=== PATIENT | male | born 1970 | race Caucasian/White ===

== ENCOUNTER → 2019-08-05 11:58 | Outpatient (BNVA) | payer MEDICAID, SELFPAY | PROVIDERS: Visit Provider Nurse Practitioner Family | DX: E78.2 Mixed hyperlipidemia (principal); Z79.899 Other long term (current) drug therapy; R53.83 Other fatigue; M54.9 Dorsalgia, unspecified; R19.7 Diarrhea, unspecified; E55.9 Vitamin D deficiency, unspecified; W19.XXXA Unspecified fall, initial encounter; Z12.5 Encounter for screening for malignant neoplasm of prostate; M51.36 Other intervertebral disc degeneration, lumbar region; M50.30 Other cervical disc degeneration, unspecified cervical region; S39.012A Strain of muscle, fascia and tendon of lower back, initial encounter; M54.40 Lumbago with sciatica, unspecified side; R15.9 Full incontinence of feces | CPT/HCPCS: 80053; 80061; 81001; 82652; 83036; 83721; 84153; 84443; 85025 ==

== ENCOUNTER 2019-08-06 11:40 | Outpatient (CLI) | payer MEDICAID, SELFPAY ==
--- NOTE | 2019-08-06 11:57 | XR_ITS ---
WS: [id number] THORACIC SPINE TECHNIQUE: AP and lateral views are performed. HISTORY: back pain COMPARISON: None available. Mild RIGHT convex curvature of the upper thoracic spine. Pedicles are all identified. Mild straighten ing of the normal thoracic kyphosis. Endplate osteophytes and mild disc space narrowing in the mid to lower thoracic spine. XR/XR thoracic spine 3V* [id number] IMPRESSION: Mild thoracolumbar scoliosis and spondylosis.
--- NOTE | 2019-08-06 11:57 | XR_ITS ---
WS: [id number] CERVICAL SPINE 3 VIEWS HISTORY: neck pain COMPARISON: None available. Mild straightening and LEFT convex curvature cervical spine. Posterior alignment is normal. Hypertrop hic endplate changes and disc space narrowing at C5-6 and C6-7. C7-T1 are not visualized. Lateral masses of C1 and C2 are aligned. Odontoid is intact. Soft tissues are normal. XR/XR cervical spine 3V* [id number] IMPRESSION: Mild spondylosis at C5-6 and C6-7.
--- NOTE | 2019-08-06 11:57 | XR_ITS ---
WS: [id number] LUMBAR SPINE: 7 VIEWS TECHNIQUE: AP, oblique, lateral, L5-S1 spot. Upright lateral projections in neutral, flexion and exte nsion. HISTORY: low back pain COMPARISON: None available. Normal lumbar alignment with mild straightening. With flexion and extension there is no instability. Moderate disc space narrowing and desiccation at L4-5 and mild at L5-S1. No fracture. Pedicles are al l identified. No pars defects are identified. Facet joint arthritis is most significant at L5-S1. SI joints are symmetric bilaterally. No soft tissue abnormalities. XR/XR lumbar spine 6V w f/e [id number] IMPRESSION: 1. No lumbar spine instability or fracture. 2. Degenerative disc disease is moderate at L4-5 and mild at L5-S1.
== END 2019-08-06 11:41 | disposition home or self-care (01) ==
LOC: RADWPI 11:44
PROVIDERS: PCP Nurse Practitioner Family; Visit Provider Nurse Practitioner Family
DX: M54.2 Cervicalgia (principal); M54.5 Low back pain; M41.85 Other forms of scoliosis, thoracolumbar region; M47.814 Spondylosis without myelopathy or radiculopathy, thoracic region; M51.36 Other intervertebral disc degeneration, lumbar region; M47.812 Spondylosis without myelopathy or radiculopathy, cervical region
CPT/HCPCS: 72040; 72072; 72114

== ENCOUNTER → 2019-09-10 13:26 | Outpatient (BNVA) | payer MEDICAID, SELFPAY | PROVIDERS: PCP Nurse Practitioner Family; Visit Provider Nurse Practitioner Family | DX: M50.30 Other cervical disc degeneration, unspecified cervical region (principal); M51.36 Other intervertebral disc degeneration, lumbar region; M54.2 Cervicalgia; E78.2 Mixed hyperlipidemia; E03.9 Hypothyroidism, unspecified; D72.829 Elevated white blood cell count, unspecified; Z79.899 Other long term (current) drug therapy | CPT/HCPCS: 80053; 84443; 85025 ==

== ENCOUNTER 2019-09-16 09:04 | Outpatient (CLI) | payer MEDICAID, SELFPAY ==
--- NOTE | 2019-09-16 09:09 | XR_ITS ---
WS: [id number] LATERAL CERVICAL SPINE: 3 view. Lateral radiographs are performed in upright neutral, flexion and extension to the patient's toleranc e. HISTORY: Neck pain COMPARISON: 08/06/2019 Mild straightening of the normal cervical lordosis. Mild disc space narrowing at C5-6 and C6-7. With flexion and extension there is no instability. Similar appearance as compared to 08/06/2019. XR/XR cervical spine fl/ex [id number] IMPRESSION: Mild spondylitic changes at C5-6 and C6-7. No instability.
== END 2019-09-16 09:05 | disposition home or self-care (01) ==
LOC: RADWPI 09:07
PROVIDERS: PCP Nurse Practitioner Family; Referring Provider Nurse Practitioner Family; Visit Provider Licensed Practical Nurse
DX: M54.2 Cervicalgia (principal)
CPT/HCPCS: 72040

== ENCOUNTER → 2019-09-18 08:28 | Outpatient (BNVA) | payer MEDICAID, SELFPAY | PROVIDERS: PCP Nurse Practitioner Family; Referring Provider Licensed Practical Nurse; Visit Provider Anesthesiology Pain Medicine | DX: M51.36 Other intervertebral disc degeneration, lumbar region (principal); M51.17 Intervertebral disc disorders with radiculopathy, lumbosacral region; M50.020 Cervical disc disorder with myelopathy, mid-cervical region, unspecified level; M48.02 Spinal stenosis, cervical region; Z79.891 Long term (current) use of opiate analgesic | CPT/HCPCS: 99204; 99205 ==

== ENCOUNTER → 2019-10-03 13:02 | Outpatient (BNVA) | payer MEDICAID, SELFPAY | PROVIDERS: PCP Nurse Practitioner Family; Visit Provider Anesthesiology Pain Medicine | DX: M50.020 Cervical disc disorder with myelopathy, mid-cervical region, unspecified level (principal); Z79.891 Long term (current) use of opiate analgesic | CPT/HCPCS: 62321; J1100; J2001 ==

== ENCOUNTER → 2019-10-15 12:21 | Outpatient (BNVA) | payer MEDICAID, SELFPAY | PROVIDERS: PCP Nurse Practitioner Family; Visit Provider Anesthesiology Pain Medicine | DX: M50.020 Cervical disc disorder with myelopathy, mid-cervical region, unspecified level (principal); Z79.891 Long term (current) use of opiate analgesic | CPT/HCPCS: 62321; J1040 ==

== ENCOUNTER 2019-11-26 08:18 | Outpatient (CLI) | payer MEDICAID, SELFPAY ==
--- NOTE | 2019-11-26 09:07 | IR_ITS ---
WS: [id number] Lumbar myelogram, 11/26/2019 Clinical Data: cervical pain and lumbar pain Comparison: None. Fluoroscopy time: 2.1 minutes. Findings: Lumbar myelogram: With the usual technique, a 22 gauge spinal needle was inserted into the lumbar subarachnoid space at L2-L3. The contrast material was hand injected. Approximately 15 mL of 300 mg/mL Omnipaque filled the lumbar subarachnoid space. Minimal degenerative arthritic spurring at L4-L5 along with disc space narrowing is seen. Flexion, extension and neutral lateral views demonstrated no limitation of motion or subluxation. No intramedullary, intradural or extradural filling defects could be seen. Cervical myelogram: The patient was placed into the head down position and the contrast material flowed normally into the cervical subarachnoid space. Flexion, extension and neutral lateral views of the cervical spine show no limitation of motion or subluxation. No intramedullary or intradural or extradural defects could be seen. IR/IR myelogram spine cervic/lumb Impression: 1. Negative lumbar myelogram. 2. Negative cervical myelogram. 3. No limitation of motion on flexion or extension could be seen with the cervi marlys spine or lumbar spine.
--- NOTE | 2019-11-26 09:07 | CT_ITS ---
WS: [id number] CT cervical spine. Additional two-dimensional coronal and sagittal reconstruction was performed post myelogram. 11/26/2019 Clinical Data: cervical pain Comparison: None. DLP: 2330.[address] scans at [facility] use at least one of these dose optimization techniques: automat ed exposure control; mA and/or kV adjustment per patient size (includes targeted exams where dose is matched to clinical indication); or iterative reconstruction. Findings: No compression fractures are seen. The disc heights are normal. Minimal anterior and posterior osteop hyte formation at C6 is present. The spinous processes are in good alignment. The odontoid is unremar kable. There is no prevertebral soft tissue swelling. The soft tissues of the cervical spine and the lung apices are not remarkable. C2-C3: No disc bulge, canal stenosis or foraminal stenosis is seen. C3-C4: No disc bulge, canal stenosis or foraminal stenosis is seen. C4-C5: No disc bulge, canal stenosis or foraminal stenosis is seen. C5-C6: There is posterior disc and osteophyte impingement onto the central spinal canal. C6-C7: There is disc and osteophyte impingement on to the central spinal canal. C7-T1: No disc bulge, canal stenosis or foraminal stenosis is seen. CT/CT cervical spine w con [id number] Impression: Disc and osteophyte posterior impingement on the central spinal canal stenosis C5-C6 and C6-C7.
--- NOTE | 2019-11-26 09:07 | CT_ITS ---
WS: [id number] CT of the lumbar spine, additional two-dimensional coronal and sagittal imaging was obtained post mye logram. 11/26/2019 Clinical Data: lumbar pain Comparison: None. DLP: 1606.[address] scans at [facility] use at least one of these dose optimization techniques: automat ed exposure control; mA and/or kV adjustment per patient size (includes targeted exams where dose is matched to clinical indication); or iterative reconstruction. Findings: The myelographic contrast fills the lumbar subarachnoid space. The transverse processes and SI joints are unremarkable. There is mild disc space narrowing at L4-L5 with anterior osteoarthritic change. T12-L1: No canal stenosis, disc bulge or foraminal narrowing is seen. L1-L2: No canal stenosis, disc bulge or foraminal narrowing is seen. L2-L3: No canal stenosis, disc bulge or foraminal narrowing is seen. L3-L4: No canal stenosis, disc bulge or foraminal narrowing is seen. L4-L5: There is broad-based disc bulging causing canal stenosis. There is also moderate foraminal ning nosis. L5-S1: There is a large disc bulge with greater bulging on the right than the left causing canal and foraminal stenosis. CT/CT lumbar spine w con [id number] Impression: 1. Canal and foraminal stenosis at L4-L5 from a broad-based disc bulge. 2. Large disc bulge at L5-S1 with greater narrowing on the right than left rosalino g with bilateral foraminal stenosis.
[2019-11-26] MEDS: iohexol 240 mg/mL 50 mL Btl INTRA-ARTI (14:19)
== END 2019-11-26 08:19 | disposition home or self-care (01) ==
PROVIDERS: PCP Nurse Practitioner Family; Visit Provider Specialist
DX: M48.061 Spinal stenosis, lumbar region without neurogenic claudication (principal); M51.26 Other intervertebral disc displacement, lumbar region; M51.27 Other intervertebral disc displacement, lumbosacral region; M25.78 Osteophyte, vertebrae; M48.02 Spinal stenosis, cervical region
CPT/HCPCS: 62302; 62304; 62305; 72040; 72120; 72126; 72132

== ENCOUNTER → 2019-12-03 14:34 | Outpatient (BNVA) | payer MEDICAID, SELFPAY | PROVIDERS: PCP Nurse Practitioner Family; Visit Provider Licensed Practical Nurse | DX: M51.16 Intervertebral disc disorders with radiculopathy, lumbar region (principal); M50.020 Cervical disc disorder with myelopathy, mid-cervical region, unspecified level | CPT/HCPCS: 99213 ==

== ENCOUNTER → 2019-12-18 11:23 | Outpatient (BNVA) | payer MEDICAID, SELFPAY | PROVIDERS: PCP Nurse Practitioner Family; Referring Provider Licensed Practical Nurse; Visit Provider Specialist | DX: M51.16 Intervertebral disc disorders with radiculopathy, lumbar region (principal); G62.9 Polyneuropathy, unspecified; Z87.891 Personal history of nicotine dependence | CPT/HCPCS: 95909 ==

== ENCOUNTER → 2020-01-06 15:07 | Outpatient (BNVA) | payer MEDICAID, SELFPAY | PROVIDERS: PCP Nurse Practitioner Family; Visit Provider Licensed Practical Nurse | DX: M51.16 Intervertebral disc disorders with radiculopathy, lumbar region (principal); M50.020 Cervical disc disorder with myelopathy, mid-cervical region, unspecified level | CPT/HCPCS: 99213 ==

== ENCOUNTER 2021-02-12 10:31 | Emergency (ER) | payer MEDICAID, SELFPAY ==
[2021-02-12 10:39] VITALS: BP 170/93; PULSE 101; RESP 18; TEMP 36.7; O2SAT 96; BMI 42.7
--- NOTE | 2021-02-12 10:57 | ED_ITS ---
HPI - Fall General: Chief Complaint: Fall Stated Complaint: FALL/PAIN IN LEGS & BACK Time Seen by Provider: 02/12/21 10:40 History of Present Illness: HPI Narrative: Patient is a 50-year-old male who comes to the ED with lower back pain after fall. Denies any head trauma or loss of consciousness. He has lower back pain that radiates down into left leg. He denies any bladder or bowel incontinence, pelvic anesthesia. Patient does endorse trouble walking due to to his back pain that radiates down into his left leg. MD complaint: fall Onset (ago): day(s) (2 days ago) Fall from: standing Fall witnessed: yes, by family Place fall occurred: home Loss of consciousness: None Prolonged down time: no Symptoms prior to fall: none Context: tripped/slipped (Patient says excellently tripped falling backwards and landed on his tailbone region) Location of injury: back (Lower back pain that radiates down in the left leg.) Severity scale (1-10): 10 Quality: sharp and stabbing Associated symptoms-after fall: Denies abdominal pain, chest pain, headache(s), hematuria or neck pain Review of Systems Const: Denies: fever(s), chills or fatigue Eyes: Denies: change in vision or eye discomfort ENMT: Denies: throat pain, odynophagia, nasal discharge or nasal congestion Card: Denies: chest pain, palpitations, edema, swelling of feet/ankles, dyspnea on exertion or orthopnea Resp: Denies: dyspnea, productive cough or non-productive cough GI: Denies: abdominal pain, nausea, vomiting, diarrhea, constipation or hematochezia : Denies: flank pain, difficulty urinating, dysuria or hematuria Musc: Reports: back pain; Denies: neck pain or extremity swelling Skin/Breast: Denies: rash or new lesions Neuro: Denies: headache(s), numbness in extremities or weakness in extremities PFSH ED PFSH: Medical History Bacterial lower respiratory infection Cervical disc disorder with myelopathy of mid-cervical region Displacement of lumbar disc with radiculopathy Hypothyroidism Lumbar stenosis with neurogenic claudication Mixed hyperlipidemia [id number] condition Shortness of breath Surgical History No pertinent past surgical history Family History Father CAD (coronary artery disease) Age 66 Mother CAD (coronary artery disease) Social History Smoking and tobacco status: former smoker Alcohol intake: current Household members: spouse and children Marital status: Current occupational status: unemployed History of recent travel: No Physical Exam Const: COMMON NORMALS: patient oriented x3 and alert GENERAL APPEARANCE: cooperative; not comfortable (Patient appears uncomfortable and in some pain.) HENMT: COMMON NORMALS: normocephalic HEAD & SCALP: normocephalic MOUTH: Normal oral and palatal mucosa present THROAT: posterior oropharynx normal and uvula midline Neck/C-Spine: COMMON NORMALS: supple GENERAL: Yes normal visual inspection Resp: COMMON NORMALS: normal respiratory effort, No retractions, No use of accessory muscles and clear to auscultation bilaterally AUSCULTATION: clear to auscultation bilaterally Cardio: COMMON NORMALS: regular rate, regular rhythm, S1 normal heart sound present, S2 normal heart sound present, No gallops present (Cardio), No clicks present (Cardio), No murmurs present (Cardio) and Peripheral pulses 2+ throughout RATE: regular rate RHYTHM: regular rhythm HEART SOUNDS: S1 normal heart sound present and S2 normal heart sound present PERIPHERAL PULSES: Peripheral pulses 2+ throughout GI: COMMON NORMALS: Normal to inspection, nondistended, normoactive bowel sounds present, Soft to palpation, non-tender and no masses PALPATION: Yes Soft to palpation : COMMON NORMALS: Yes no CVA tenderness BLADDER/KIDNEY EXAM: Yes no CVA tenderness Back/Pelvis: COMMON NORMALS: no CVA tenderness LUMBAR SPINE/LOWER BACK: Yes pain with ROM, Yes lumbar spinal tenderness Lumbar spinal tenderness location: L4 and L5 and Yes paraspinal muscle tenderness Lumbar paraspinal muscle tenderness: bilateral Bilateral lumbar paraspinal muscle tenderness: L3, L4 and L5 Extremity: COMMON NORMALS: normal to inspection Neuro: COMMON NORMALS: patient oriented x3 and moves all extremities SENSORIUM/ORIENTATION: Yes alert Skin: GENERAL SKIN EXAM: dry skin Course Vital Signs: Vital signs: Vital Signs Temperature 98.1 F 02/12/21 10:39 Pulse Rate 102 H 02/12/21 11:03 Respiratory Rate 18 02/12/21 11:03 Blood Pressure 154/81 02/12/21 11:03 Pulse Oximetry 97 02/12/21 11:03 MDM - Fall MDM Narrative: Medical decision making narrative: Patient is a 50-year-old male comes to the ED with low back pain after fall. Patient lost balance and fell back landing on lower back. Denies any head trauma or loss of consciousness. Pain is described as started in the low lower back and radiates down into his left leg. Denies any cauda equina symptoms. Exam showed some paraspinal lumbar tenderness along with some lumbar spine tenderness around the L4 and L5. Rest of exam was benign. CT of lumbar spine showed no acute fractures or findings. Just noted some chronic degenerative disease around the L4 and L5 disc. Patient was diagnosed with lumbar radiculopathy and discharged home with a prescription for Celebrex, cyclobenzaprine and prednisone. He was told to follow-up with his PCP in 7 to 10 days for reevaluation. Return to ED precautions given. Patient understood and agree with plan. Imaging Data^: Other CT: Attestation: I personally reviewed and interpreted this imaging study as follows: Radiologist's impression: [address] [address] [address] Scan Report Signed Patient: Tremayne Soto Unit #: [id number] : 1970 Age/Sex: 50 / M ADM Date: 02/12/21 Loc: ER Room/Bed: Attending Dr: Ordering Provider/Ordering MD: Femi Yoon Date of Service: 02/12/21 Procedure(s): CT lumbar spine wo con* [id number] Accession Number(s): [id number] Report Number: [id number] PROCEDURE INFORMATION: Exam: CT Lumbar Spine Without Contrast Exam date and time: 02/12/2021 10:56 AM Age: 50 years old Clinical indication: Injury or trauma; Fall; Blunt trauma (contusions or hematomas); Additional info: Fall with lumbar back pain TECHNIQUE: Imaging protocol: Computed tomography images of the lumbar spine without contrast. Total images: 389 Radiation optimization: All CT scans at this facility use at least one of these dose optimization techniques: automated exposure control; mA and/or kV adjustment per patient size (includes targeted exams where dose is matched to clinical indication); or iterative reconstruction. COMPARISON: CT lumbar spine w con [id number] 11/26/2019 10:34 AM RADIATION DOSE METRICS: Total DLP (mGy-cm): 3004.41 FINDINGS: Vertebrae: No acute fracture nor subluxation. No osseous erosion nor periosteal reaction. Discs/Spinal canal/Neural foramina: L4-L5 Degenerative disc disease with disc space narrowing and osteophyte formation. Broad-based posterior disc bulge. L5-S1 Broad-based posterior disc bulge. Soft tissues: Unremarkable. CT/CT lumbar spine wo con* [id number] IMPRESSION: Degenerative changes as described above but no acute pathology detected. Radiation Dose CTDIVOL = (mGy): DLP = 3004.41 (mGy-cm) Dictated By: Liban Christianson MD Signed By: Liban Christianson MD Signed Date/Time: 02/12/21 1156 DD/ 1056 Discharge Plan Discharge Patient Disposition: Home Clinical Impression: Lumbar radiculopathy Condition: Stable Prescriptions: New Celebrex 100 mg capsule 100 mg PO BID PRN (Reason: pain) Qty: 30 RF: 0 cyclobenzaprine 10 mg tablet 10 mg PO BID PRN (Reason: muscle spasm) Qty: 20 RF: 0 prednisone 20 mg tablet 20 mg PO BID 7 Days Qty: 14 RF: 0 No Action gabapentin 300 mg capsule 300 mg PO BID Qty: 60 RF: 0 MEDICAL MARIJUANA as directed RF: 0 pantoprazole 40 mg tablet,delayed release (DR/EC) 40 mg PO QAM Qty: 90 RF: 3 ibuprofen 800 mg tablet 800 mg PO TID 30 Days Qty: 90 RF: 2 rosuvastatin [Crestor] 5 mg tablet 5 mg PO DAILY 90 Days Qty: 90 RF: 0 levothyroxine 50 mcg capsule 50 mcg PO DAILY 90 Days Qty: 90 RF: 0 Centrum Men 8 mg iron- 200 mcg-600 mcg tablet PO RF: 0 One-A-Day Men's Multivitamin 400-20-300 mcg tablet PO RF: 0 levofloxacin 750 mg tablet 750 mg PO Q24H 7 Days Qty: 7 RF: 0 dexamethasone 6 mg tablet 6 mg PO DAILY 7 Days Qty: 7 RF: 0 budesonide-formoterol [Symbicort] 160-4.5 mcg/actuation HFA aerosol inhaler 2 inh inhalation BID Qty: 10.2 RF: 0 albuterol sulfate [ProAir HFA] 90 mcg/actuation HFA aerosol inhaler 1 inh inhalation Q6H PRN (Reason: shortness of breath or wheezing) 30 Days Qty: 8.5 RF: 2 Discharge Orders: Discharge ED (Routine); Ordered 02/12/21 Ordered By: Femi Yoon Referrals: VAL Aguilar, CL[facility]ER [Primary Care Provider] - Discharge Diet: Regular Discharge Activity: Increase activity as tolerated Patient Instructions: Lumbar Radiculopathy (ED) Activity Restrictions/Additional Instructions: Follow-up with medical provider as directed in 7 to 10 days for reevaluation. Take medications as prescribed. Cyclobenzaprine is a muscle relaxer and can cause some drowsiness so take at night before going to bed. Rest, limit activity and lifting for the next several days. Apply cold pack or heat on lower back to help with symptoms. Stretch lower back daily. Return to the ER or your medical provider if condition worsens. Please read and understand discharge instructions. Thank you for choosing [facility] for your healthcare needs today. Please realize this is an emergency room and that we are providing you with a medical screening exam and this may not be complete and all inclusive of all the testing and or work up that you may need to determine your ailment or severity of your illness. It is very important that you follow up as instructed or that you return to the Emergency Department should you have concerns or if your condition changes or worsens in any way. Coding Level of Care Code ED Certified Ophthalmic Medical Technician for Jeromy Morataya Exam Comprehensive
[2021-02-12 11:03] VITALS: BP 154/81; PULSE 102; RESP 18; O2SAT 97
[2021-02-12] MEDS: morphine 4 mg/mL SDV 1 mL IM (11:20)
[2021-02-12] MEDS: dexamethasone 10 mg/mL INJ IM (12:22)
[2021-02-12] MEDS: HYDROcodone-acetaminophen 7.5-325 mg Tablet 1 TAB PO (12:23)
[2021-02-12 12:34] VITALS: BP 138/96; PULSE 80; RESP 16; O2SAT 99
== END 2021-02-12 12:34 | disposition home or self-care (01) ==
PROVIDERS: Emergency Provider Physician Assistant; PCP Nurse Practitioner Family
DX: M54.16 Radiculopathy, lumbar region (principal); W19.XXXA Unspecified fall, initial encounter; Z87.891 Personal history of nicotine dependence; M48.062 Spinal stenosis, lumbar region with neurogenic claudication; Z86.16 Personal history of COVID-19
CPT/HCPCS: 72131; 96372; 99283; J1100; J2270

== ENCOUNTER → 2021-02-15 11:06 | Outpatient (BNVA) | payer MEDICAID, SELFPAY | PROVIDERS: PCP Nurse Practitioner Family; Visit Provider Nurse Practitioner Family | DX: M48.062 Spinal stenosis, lumbar region with neurogenic claudication (principal); M54.2 Cervicalgia; E03.9 Hypothyroidism, unspecified; E78.2 Mixed hyperlipidemia; Z79.899 Other long term (current) drug therapy; E55.9 Vitamin D deficiency, unspecified | CPT/HCPCS: 80053; 80061; 81003; 82306; 83036; 83721; 84439; 84443; 85025 ==

== ENCOUNTER → 2021-02-25 09:15 | Outpatient (BNVA) | payer MEDICAID, SELFPAY | PROVIDERS: PCP Nurse Practitioner Family; Visit Provider Nurse Practitioner Family | DX: D72.829 Elevated white blood cell count, unspecified (principal) | CPT/HCPCS: 85025; 85651; 86140 ==

== ENCOUNTER → 2021-03-24 13:03 | Outpatient (BNVA) | payer MEDICAID, SELFPAY | PROVIDERS: PCP Nurse Practitioner Family; Referring Provider Orthopaedic Surgery; Visit Provider Anesthesiology Pain Medicine | DX: G89.29 Other chronic pain (principal); M48.062 Spinal stenosis, lumbar region with neurogenic claudication; M51.17 Intervertebral disc disorders with radiculopathy, lumbosacral region; M51.36 Other intervertebral disc degeneration, lumbar region; M50.020 Cervical disc disorder with myelopathy, mid-cervical region, unspecified level; M48.02 Spinal stenosis, cervical region; Z79.899 Other long term (current) drug therapy | CPT/HCPCS: 99214 ==

== ENCOUNTER 2021-04-19 09:29 | Outpatient (CLI) | payer MEDICAID, SELFPAY ==
--- NOTE | 2021-04-19 10:00 | XR_ITS ---
WS: [id number] LATERAL CERVICAL SPINE: 3 view. Lateral radiographs are performed in upright neutral, flexion and extension to the patient's toleranc e. HISTORY: M48.062 - Spinal stenosis, lumbar region with neurogenic ... COMPARISON: 11/26/2019 Posterior alignment is normal from C2 through C6. C7 vertebral body is obscured by the patient's shou lders. With flexion and extension no instability. Hypertrophic osteophyte changes extend posteriorly toward the central canal at C5 and C6. Posterior facet alignment is normal. No prevertebral soft tiss ue swelling. XR/XR cervical spine fl/ex [id number] IMPRESSION: 1. No cervical spine instability. 2. Hypertrophic osteophytes at C5-6 extends posterior and probably encroach up on the central canal and foramen.
--- NOTE | 2021-04-19 10:30 | XRR_ITS ---
PROCEDURE INFORMATION: Exam: XR Lumbosacral Spine Exam date and time: 04/19/2021 10:30 AM Age: 50 years old Clinical indication: Condition or disease; Other: Intervertebral disc disorders with radiculopathy; Patient HX: Fell off ladder 1 1/2 years, pain to neck and lower back ever since; Additional info: M51.16 - intervertebral disc disorders with radiculopathy. . . , Flexion/extension views TECHNIQUE: Imaging protocol: XR of the lumbosacral spine. Views: 2 or 3 views. COMPARISON: CT lumbar spine wo con* [id number] 02/12/2021 11:11 AM FINDINGS: Bones/joints: Vertebral body heights are preserved. Mild disc height loss at L4-L5 with early endplate osteophyte formation. No malalignment. Soft tissues: Unremarkable. XR/XR lumbar spine f/e only [id number] IMPRESSION: Degenerative disc disease at L4-L5.
== END 2021-04-19 09:30 | disposition home or self-care (01) ==
LOC: RAD 09:33
PROVIDERS: PCP Nurse Practitioner Family; Visit Provider Orthopaedic Surgery
DX: M48.062 Spinal stenosis, lumbar region with neurogenic claudication (principal); M51.16 Intervertebral disc disorders with radiculopathy, lumbar region; M50.020 Cervical disc disorder with myelopathy, mid-cervical region, unspecified level; M51.36 Other intervertebral disc degeneration, lumbar region; M25.78 Osteophyte, vertebrae
CPT/HCPCS: 36416; 64483; 64484; 72040; 72120; 82962; J1100; J3490

== ENCOUNTER → 2021-05-03 08:55 | Outpatient (BNVA) | payer MEDICAID, SELFPAY | PROVIDERS: PCP Nurse Practitioner Family; Visit Provider Anesthesiology Pain Medicine | DX: M48.062 Spinal stenosis, lumbar region with neurogenic claudication (principal); M51.36 Other intervertebral disc degeneration, lumbar region; M51.17 Intervertebral disc disorders with radiculopathy, lumbosacral region; M50.020 Cervical disc disorder with myelopathy, mid-cervical region, unspecified level; M48.02 Spinal stenosis, cervical region; M79.601 Pain in right arm; M79.602 Pain in left arm | CPT/HCPCS: 99214 ==

== ENCOUNTER → 2021-07-28 14:29 | Outpatient (BNVA) | payer MEDICAID, SELFPAY | PROVIDERS: PCP Nurse Practitioner Family; Visit Provider Physician Assistant | DX: M48.062 Spinal stenosis, lumbar region with neurogenic claudication (principal) | CPT/HCPCS: 99213; 99999 ==

== ENCOUNTER → 2021-08-01 10:20 | Outpatient (BNVA) | payer MEDICAID, SELFPAY | PROVIDERS: PCP Nurse Practitioner Family; Visit Provider Anesthesiology Pain Medicine | DX: M48.062 Spinal stenosis, lumbar region with neurogenic claudication (principal); M51.36 Other intervertebral disc degeneration, lumbar region; M51.17 Intervertebral disc disorders with radiculopathy, lumbosacral region; M50.020 Cervical disc disorder with myelopathy, mid-cervical region, unspecified level; M48.02 Spinal stenosis, cervical region; M79.604 Pain in right leg; M79.605 Pain in left leg | CPT/HCPCS: 99214 ==

== ENCOUNTER → 2021-08-02 09:13 | Outpatient (BNVA) | payer MEDICAID, SELFPAY | PROVIDERS: PCP Nurse Practitioner Family; Visit Provider Nurse Practitioner | DX: E78.2 Mixed hyperlipidemia (principal); E11.9 Type 2 diabetes mellitus without complications; D72.829 Elevated white blood cell count, unspecified | CPT/HCPCS: 80053; 83036; 85025 ==

== ENCOUNTER → 2021-08-22 14:43 | Outpatient (BNVA) | payer MEDICAID, SELFPAY | PROVIDERS: PCP Nurse Practitioner; Visit Provider Anesthesiology Pain Medicine | DX: M48.062 Spinal stenosis, lumbar region with neurogenic claudication (principal); M51.17 Intervertebral disc disorders with radiculopathy, lumbosacral region; M51.36 Other intervertebral disc degeneration, lumbar region; M50.020 Cervical disc disorder with myelopathy, mid-cervical region, unspecified level; M48.02 Spinal stenosis, cervical region; M79.604 Pain in right leg; M79.605 Pain in left leg | CPT/HCPCS: 99214 ==

== ENCOUNTER → 2021-09-07 12:07 | Outpatient (BNVA) | payer MEDICAID, SELFPAY | PROVIDERS: PCP Nurse Practitioner; Visit Provider Anesthesiology Pain Medicine | DX: M54.16 Radiculopathy, lumbar region (principal); M48.062 Spinal stenosis, lumbar region with neurogenic claudication; E11.9 Type 2 diabetes mellitus without complications; Z79.84 Long term (current) use of oral hypoglycemic drugs | CPT/HCPCS: 36416; 64483; 64484; 82962; J1100; J3490 ==

== ENCOUNTER → 2021-09-15 11:22 | Outpatient (BNVA) | payer MEDICAID, SELFPAY | PROVIDERS: PCP Nurse Practitioner; Visit Provider Orthopaedic Surgery | DX: M47.22 Other spondylosis with radiculopathy, cervical region (principal); M48.062 Spinal stenosis, lumbar region with neurogenic claudication; M51.17 Intervertebral disc disorders with radiculopathy, lumbosacral region; M51.36 Other intervertebral disc degeneration, lumbar region; M50.020 Cervical disc disorder with myelopathy, mid-cervical region, unspecified level; M48.02 Spinal stenosis, cervical region; R06.02 Shortness of breath | CPT/HCPCS: 99214; 99215 ==

== ENCOUNTER 2021-09-15 15:39 | Outpatient (CLI) | payer MEDICAID, SELFPAY | END 2021-09-15 15:40 | disposition home or self-care (01) | LOC: SPT 15:41 | PROVIDERS: PCP Nurse Practitioner; Visit Provider Orthopaedic Surgery | DX: Z46.89 Encounter for fitting and adjustment of other specified devices (principal); M50.020 Cervical disc disorder with myelopathy, mid-cervical region, unspecified level | CPT/HCPCS: 97760; L0174 ==

== ENCOUNTER 2021-10-14 12:05 | Inpatient (IN) | payer MEDICAID, SELFPAY ==
[2021-10-12 08:23] VITALS: BMI 44.7
--- NOTE | 2021-10-12 08:36 | ANES.PREANE2 ---
Pre-Anesthetic Assessment Height/Weight: Height 1.83 m Weight 149.685 kg Operation Date: 10/14/21 07:00 Proposed Procedures p Anterior Cervical Discectomy & Fusion/C5/6 6 [id number]/[id number]/53757V5/54930/60622/55226/M47.22/M54.2(Not Applicable) - Kenyn Gomez, DO Familial anesthetic complications: None, first anesthetic Social No alcohol and No tobacco Exam alert, oriented x 3, clear to auscultation bilaterally and regular rate & rhythm Airway Mallampati: Class IV Dentition: other (1 missing) Comments: Comments: large neck circumference, limited neck extension Pulmonary allergies - requires inhalers, but no allergens are bothering him this time of year CV/HEM None reported None reported Hepatic None reported GI None reported Metabolic Diabetes Mellitus, Morbid Obesity and Thyroid Disease Musc/skel Lower Back Pain Neuropsych None reported Anesthetic Plan ASA status: 3 Anesthesia: General Risk of > 500 ml blood loss (7ml/kg in children): No Medications/Allergies Home Medications Medication Instructions Recorded Confirmed Last Taken Type MEDICAL MARIJUANA 1 puff DIRECTED PRN PRN 10/15/19 10/12/21 Unknown History albuterol sulfate 90 mcg/actuation 1 inh INHALATION Q6H PRN 30 Days 12/31/20 10/12/21 Unknown Rx aerosol inhaler (ProAir HFA) #8.5 g celecoxib 200 mg capsule (Celebrex) 200 mg PO BID #60 cap 08/03/21 10/12/21 Unknown Rx [place] J Collar #1 ea 09/15/21 10/12/21 Unknown Rx budesonide-formoterol HFA 160 2 inh INHALATION BID #10.2 g 09/15/21 10/12/21 Unknown Rx mcg-4.5 mcg/actuation aerosol inhaler (Symbicort) cyclobenzaprine 10 mg tablet 10 mg PO TID PRN #30 tab 09/15/21 10/12/21 Unknown Rx gabapentin 300 mg capsule 300 mg PO TID #90 cap 09/19/21 10/12/21 Unknown Rx Bone growth Stimulator [id number] #1 ea 09/21/21 10/12/21 Unknown Rx metformin 500 mg tablet 500 mg PO DAILY 10/12/21 10/12/21 Unknown History rosuvastatin 5 mg tablet 5 mg PO DAILY 10/12/21 10/12/21 Unknown History Allergies Allergy/AdvReac Type Severity Reaction Status Date / Time No Known Allergies Allergy Verified 09/19/21 14:12 [facility] Anesthesia Medical History Bacterial lower respiratory infection Cervical disc disorder with myelopathy of mid-cervical region Diabetes mellitus, type II Displacement of lumbar disc with radiculopathy Elevated WBC count Hypothyroidism Lumbar stenosis with neurogenic claudication Medication management Mixed hyperlipidemia Mixed hyperlipidemia [id number] condition Shortness of breath Vitamin D deficiency Surgical History No pertinent past surgical history Family History Father CAD (coronary artery disease) Age 66 Mother CAD (coronary artery disease) Social History Smoking and tobacco status: never smoked Second hand smoke exposure: No Alcohol intake: current Household members: spouse and children Marital status: Current occupational status: unemployed History of recent travel: No Data Anesthesia Cardiac Studies: No Data to Display
[2021-10-14] VITALS (37 sets, daily range): BP systolic 101–195; BP diastolic 58–128; PULSE 83–118; RESP 14–23; TEMP 36.1–36.9; O2SAT 91–100
--- NOTE | 2021-10-14 | XR_ITS ---
WS: [id number] XR cervical spine 3V* [id number] REASON FOR EXAM: acdf FINDINGS: Anterior plate and screw fixation C5-C7 with intervertebral body fusion devices. The surgical appliances appear in proper position and alignment. XR/XR cervical spine 3V* [id number] IMPRESSION: Postoperative cervical spine without abnormality.
--- NOTE | 2021-10-14 | SCC_ITS ---
Procedure done: 1. Anterior diskectomy C5/6 2. Anterior discectomy C6/7 3. Insertion of cage C5/6 4. Insertion of Cage C6/7 5. Instrumentation with anterior plate from C5-C7 6. Use of allograft 19.1 seconds of fluoroscopic guidance, for a cumulative dose of 13.61 mGy, was provided to Dr. Gomez by the radiology department. C-arm images of the cervical spine were saved for the patient's permanent record. FRANCISCO JAVIERD
[2021-10-14 06:21] LABS: Glucose Point of Care 170 mg/dL (70-110)
[2021-10-14] MEDS: sodium chloride 0.9% 1,000 ML 30 ML IV ×2 (06:25→13:34)
--- NOTE | 2021-10-14 06:35 | P.ANESUD_ITS ---
Pre-Anesthetic Update Pre-Anesthetic Assessment: Date of Surgery/Procedure: 10/14/21 Preop Diandra gnosis: Cervical spondylosis with radiculopathy Proposed Procedure: Operation Date: 10/14/21 07:00 Proposed Procedures p Anterior Cervical Discectomy & Fusion/C5/6 6/ [id number]/[id number]/06281O0/39044/57230/47708/M47.22/M54.2(Not Applicable) - Kenny Gomez, DO Any changes to Pre-Anesthetic Assessment?: No Last Intake: Intake Last Liquid Date 10/13/21 Last Liquid Time 21:00 Last Solid Date 10/13/21 Last Solid Time 19:00 Vitals: Temperature 97.7 F 10/14/21 06:09 Temperature Source Temporal Artery S can 10/14/21 06:09 Pulse Rate 118 H 10/14/21 06:09 Respiratory Rate 18 10/14/21 06:09 Blood Pressure 170/97 10/14/21 06:09 Blood Pressure Martita n 121 10/14/21 06:09 Pulse Oximetry 98 10/14/21 06:09 Oxygen Delivery Me thod 10/14/21 06:09 Exam: Pre-Anes Outpt Exam: alert, oriented x 3, clear to auscultation bilaterally and regular rate & rhythm Cardiac Studies: No Data to Display
--- NOTE | 2021-10-14 07:41 | W.PM.OPSUD ---
Surgery/Procedure H&P Update DATE OF PROCEDURE: October 14, 2021 DATE H&P PERFORMED: 09/15/21 H&P UPDATE INFORMATION: I have reviewed H&P completed within last 30 days, I have examined patient prior to procedure and No changes to prior documentation PREOP DIAGNOSIS: Cervical spondylosis with radiculopathy PLANNED PROCEDURE: Operation Date: 10/14/21 07:00 Proposed Procedures p Anterior Cervical Discectomy & Fusion/C5/6 6/ 78313/11699/94291O4/62808/29261/21415/M47.22/M54.2(Not Applicable) - Kenny Gomez DO
--- NOTE | 2021-10-14 10:24 | PM.OP ---
Operative Report Date of procedure: October 14, 2021 Pre-op diagnosis: Preop Diagnosis Cervical spondylosis with radiculopathy Post-op diagnosis: same Procedure done: 1. Anterior diskectomy C5/6 2. Anterior discectomy C6/7 3. Insertion of cage C5/6 4. Insertion of Cage C6/7 5. Instrumentation with anterior plate from C5-C7 6. Use of allograft Surgeon: Kenny Gomez Estimated blood loss (mL): 20 Procedure: 1. Anterior diskectomy C5/6 2. Anterior discectomy C6/7 3. Insertion of cage C5/6 4. Insertion of Cage C6/7 5. Instrumentation with anterior plate from C5-C7 6. Use of allograft The patient was taken to the operating room, where he underwent general endotracheal anesthesia without complications. He was then positioned supine on the operating table, and all areas of impingement were well padded. The arms were carefully padded and tucked at his sides. A roll was placed between the shoulder blades.. An x-ray was done to determine the appropriate level for the skin incision. The entire neck was then sterilely prepped and draped in the usual fashion. Neuromonitoring was attached prior to prepping. A transverse skin incision was made and carried down to the platysma muscle. This was then split in line with its fibers. Blunt dissection was carried down medial to the carotid sheath and lateral to the trachea and esophagus until the anterior cervical spine was visualized. A needle was placed into a disc and an x-ray was done to determine its location. The longus colli muscles were then elevated bilaterally with the electrocautery unit. Self-retaining retractors were placed deep to the longus colli muscle. Attention was brought to the C5/6 level that was confirmed on x-ray. A caspar pin was placed into the C5 vertebrae and the C6 vertebrae. The disk space was then distracted. The microscope was then brought in. A radical anterior discectomies were performed at C5/6. This included complete removal of the anterior annulus, nucleus, and posterior annulus. The posterior longitudinal ligament was removed as were the posterior osteophytes. Foraminotomies were then accomplished bilaterally. This was done using a high speed kayley, kerrison rongeurs and curretes Once all of this was accomplished, the curved currette was used to check for any residual compression. The central canal was wide open as were the foramen. A high-speed bur was used to remove the cartilaginous endplates above and below the interspace. Bleeding cancellous bone was exposed. The disc space were measured and appropriate size cage were placed sterilely onto the field. Allograft graft was packed into the cages. The cage was then placed and there was good juxtaposition against the bleeding decorticated surfaces and good distraction of each interspace. Attention was brought to the next interspace. The Kinsman pins were removed. Bone wax was used to prevent any bleeding from occurring at the pin sites. Attention was brought to the C6/7 level that was confirmed on x-ray. A caspar pin was placed into the C6 vertebrae and the C7 vertebrae. The disk space was then distracted. The microscope was then brought in. A radical anterior discectomies were performed at C6/7. This included complete removal of the anterior annulus, nucleus, and posterior annulus. The posterior longitudinal ligament was removed as were the posterior osteophytes. Foraminotomies were then accomplished bilaterally. This was done using a high speed kayley, kerrison rongeurs and curretes Once all of this was accomplished, the curved currette was used to check for any residual compression. The central canal was wide open as were the foramen. A high-speed bur was used to remove the cartilaginous endplates above and below the interspace. Bleeding cancellous bone was exposed. The disc space were measured and appropriate size cage were placed sterilely onto the field. Allograft graft was packed into the cages. The cage was then placed and there was good juxtaposition against the bleeding decorticated surfaces and good distraction of each interspace. Attention was brought to the next interspace. The Kinsman pins were removed. Bone wax was used to prevent any bleeding from occurring at the pin sites. The appropriate size anterior cervical locking plate was chosen and bent into gentle lordosis. Two screws were then placed into each of the vertebral bodies at C5, C6 and C7. There was excellent purchase. A final x-ray was done confirming good position of the hardware and Cages. The locking screws were then applied, also with excellent purchase. Following a final copious irrigation, there was good hemostasis and no dural leaks. The carotid pulse was strong. The wounds were then closed in layers using 2-0 Vicryl suture for the platysma muscle, 2-0 Vicryl suture for the subcutaneous tissue, and 4-0 monocryl suture in a subcuticular skin closure. Glue was placed followed by application of a sterile dressing. The drain was hooked to bulb suction. A soft collar was applied. The patient was then carefully returned to the supine position on his hospital bed where he was reversed and extubated and taken to the recovery room having tolerated the procedure well.
[2021-10-14] MEDS: labetalol 5 mg/mL SDV 20mL IVP (11:03)
[2021-10-14] MEDS: midazolam 1 mg/mL INJ 5 ML 5 MG IVP (11:30)
[2021-10-14 11:45] LABS: Glucose Point of Care 192 mg/dL (70-110)
[2021-10-14] MEDS: dexmedeTOMIDine 0.9 % NaCL 400 MCG/100 ML PREMIX IV (11:45)
--- NOTE | 2021-10-14 12:15 | PC.NURSE ---
received to icu 10 rapid response respritory here accompanied with anesthesia and rn from outpt surgery .. agricultural engineer aHlie Durán rn and cost control supervisor lorenzo .. and several other nurses and staff has pulled out all iv acessess and monitor wires ect .. extremely diaporetic and agitated , fighting and pulling at lines. Resp stidor noted noisy resperations meds per anesthesia for sedation called to notify Dr Gomez of events who is in case. then called hospitalist to consult and assist with this situation Dr Wilson to room to assist with situation related to anesthesia to proceed with intubation , placed on vent and sedation per icu staff of fentynl and propofol infusing
[2021-10-14] MEDS: midazolam 1 mg/mL INJ 5 ML 5 MG (12:16)
[2021-10-14] MEDS: propofol 1,000 MG/100 ML INJ 20 MG (12:19)
[2021-10-14] MEDS: succinylcholine 20 mg/mL SDV 10mL 400 MG (12:25)
[2021-10-14] MEDS: etomidate 20 ML 1 MG (12:25)
--- NOTE | 2021-10-14 12:26 | PM.CONSULT ---
Providers/Reason For Consult Consulting Physician/Specialty*: Hospitalist Reason for Consult*: Perioperative care/postop care Attending Physician: Kenny Gomez DO Primary Care Provider: Lucinda Boateng APN History of Present Illness History of Present Illness Tremayne Soto is a 51 year old male who has a history of cervical spondylosis with radiculopathy, had a rapid response in PACU for respiratory distress, status post anterior discectomy C5-C6 C6-C7 insertion of cage instrumentation with anterior plate C5-C7 estimated blood loss 20 mL, as per the report patient was intubated twice because of difficult airway perioperatively, as soon as he was brought to the ICU ICU nurse BJ called Dr. Trevino to evaluate the patient at bedside for erratic behavior, and respite distress. Dr. Trevino noticed stridor and requested intubation on emergent basis, Dr. Guzman was able to intubate him on first attempt without difficulty, Dr. Rios was also present at the bedside. No significant edema was noted. As per the report blood was suctioned to nasopharynx perioperatively. I am taking over care of this patient now in ICU 10, he is intubated and sedated Chest x-ray reviewed, endotracheal tube size 8 advanced from 23 cm to 26cm at lipbite I am noticing right middle lobe infiltrate, will treat him for possible aspiration pneumonia, will give him Decadron 10 mg IV push along racemic epinephrine 1 dose Also will give him Lasix 20 mg IV push Currently he is on vent settings 100% FiO2 PEEP of 8 tidal volume 500 is sedated with fentanyl and propofol Propofol at 30, fentanyl at 75 Blood pressure stable He is afebrile Postoperative blood work is showing leukocytosis 13.7, hemoglobin stable abnormal transaminases Requested TSH, CBC, BMP, troponin serial EKGs, CRP, ESR, ICU supervisor pullet farm Lucinda has notified his , who was receptive Review of Systems General: Reports: ROS unobtainable due to endotracheal tube Medications/Allergies Home Medications Medication Instructions Recorded Confirmed Last Taken Type MEDICAL MARIJUANA 1 puff DIRECTED PRN PRN 10/15/19 10/14/21 10/13/21 History albuterol sulfate 90 mcg/actuation 1 inh INHALATION Q6H PRN 30 Days 12/31/20 10/14/21 10/14/21 Rx aerosol inhaler (ProAir HFA) #8.5 g celecoxib 200 mg capsule (Celebrex) 200 mg PO BID #60 cap 08/03/21 10/14/21 10/14/21 Rx Monrovia J Collar #1 ea 09/15/21 10/12/21 Unknown Rx budesonide-formoterol HFA 160 2 inh INHALATION BID #10.2 g 09/15/21 10/12/21 Unknown Rx mcg-4.5 mcg/actuation aerosol inhaler (Symbicort) cyclobenzaprine 10 mg tablet 10 mg PO TID PRN #30 tab 09/15/21 10/14/21 10/13/21 Rx gabapentin 300 mg capsule 300 mg PO TID #90 cap 09/19/21 10/14/21 10/13/21 Rx Bone growth Stimulator E0748 #1 ea 09/21/21 10/12/21 Unknown Rx metformin 500 mg tablet 500 mg PO DAILY 10/12/21 10/12/21 Unknown History rosuvastatin 5 mg tablet 5 mg PO DAILY 10/12/21 10/12/21 Unknown History hydrocodone 5 mg-acetaminophen 325 1 - 2 tab PO .Q4-6H #40 tab 10/14/21 Unknown Rx mg tablet Allergies Allergy/AdvReac Type Severity Reaction Status Date / Time No Known Allergies Allergy Verified 09/19/21 14:12 Current Medications Generic Name Dose Route Start Last Admin Trade Name Freq PRN Reason Stop Dose Admin Sodium Chloride 1,000 mls @ 30 mls/hr 10/14/21 06:00 10/14/21 06:25 Sodium Chloride 0.9% IV 10/15/21 05:59 30 mls/hr .Q24H ADRIAN Administration PFSH Acute PFSH: Medical History (Updated 10/14/21 @ 13:16 by Felipe Lopez MD) Bacterial lower respiratory infection Cervical disc disorder with myelopathy of mid-cervical region Diabetes mellitus, type II Displacement of lumbar disc with radiculopathy Elevated WBC count Hypothyroidism intermediate (current) use of opiate analgesic Lumbar stenosis with neurogenic claudication Medical marijuana use Medication management Mixed hyperlipidemia Mixed hyperlipidemia Pain management contract signed [id number] condition Shortness of breath Vitamin D deficiency Surgical History No pertinent past surgical history Family History Father CAD (coronary artery disease) Age 66 Mother CAD (coronary artery disease) Social History Smoking and tobacco status: never smoked Second hand smoke exposure: No Alcohol intake: current Household members: spouse and children Marital status: Current occupational status: unemployed History of recent travel: No Vitals/I&O/Wt Last Vital Signs Temp 97.0 F L 10/14/21 10:34 Pulse 83 10/14/21 11:15 Resp 18 10/14/21 11:15 BP 162/128 10/14/21 11:15 Pulse Ox 91 10/14/21 11:15 10/13/21 10/14/21 10/14/21 22:59 06:59 14:59 Intake Total 250 / 250 Output Total 250 / 250 Balance 0 / 0 Physical Exam Narrative: Morbidly obese male Currently intubated and sedated ET tube size 8 at 26 cm lip bite Vent settings PEEP 8, FiO2 100% Tidal volume 500 Hemodynamically stable Currently on propofol and fentanyl Assisted bilateral breath sounds Distended abdomen with obesity Patient also has an IV access in his right foot No signs of edema Sinus rhythm Neuro exam limited NG tube in place Data : 10/14/21 12:30 10/14/21 12:30 A&P Assessment and plan (1) Cervical spondylosis with radiculopathy: Status: Acute (2) Diabetes mellitus, type II: Status: Acute (3) Vitamin D deficiency: Status: Acute (4) Lumbar stenosis with neurogenic claudication: Status: Acute (5) Displacement of lumbar disc with radiculopathy: Status: Chronic (6) Chronic diarrhea: Status: Acute (7) Hypothyroidism: Status: Acute Qualifiers: Hypothyroidism type: acquired Qualified Code(s): E03.9 - Hypothyroidism, unspecified (8) Respiratory failure: Status: Acute (9) Aspiration pneumonia: Status: Acute Plan Respiratory failure require mechanical ventilation Patient was intubated for airway protection after his surgery Stridors were noted by Dr. Wilson I have given him steroids 10 mg of Decadron and 1 dose of epinephrine racemic Waiting on blood gas Currently he is saturating well on 100% FiO2 PEEP 8 Will readjust vent settings after blood gas Dr. Guzman did not report significant edema during intubation However blood was suctioned from nasopharynx perioperatively, hemoglobin remains stable, Retropharyngeal hematoma? Will do CT scan of his neck before attempting extubation Patient was very agitated before intubation, might need Seroquel or Precedex before extubation Sepsis related to aspiration pneumonia High lactic acid, leukocytosis, hypoxia, tachypnea Judicious use of septic bolus because of interstitial edema noted on chest x-ray I am reluctant to add septic bolus Recheck lactic acid with septic protocol Antibiotics added, requested blood cultures chest x-ray shows interstitial edema, vascular congestion concern for mild fluid overload I will diurese him gently with IV Lasix 20 mg and monitor his response Hypoxic respiratory failure requiring mechanical ventilation Postoperatively Concern for aspiration pneumonia Start Zosyn Afebrile for now Noticed leukocytosis I will keep him on IV steroids along DuoNeb Chronic diarrhea history, monitor for now Type 2 diabetes: Hemoglobin A1c 6.6 Accu-Cheks every 4 hours For now I will add DVT prophylaxis with Lovenox 30 mg twice daily because of his high BMI He H&H has been stable If history of clinically stable we will do weaning trial tomorrow morning after doing CT scan of his neck, he will also need Precedex before extubation N.p.o. NGT suction Full code, updated Consult Attestations Medical Necessity Statement: Continue ICU management Time Spent in Patient Care: 50min Coding Level of Care Code Acute Irrigation Service Technician for [facility] Fwd Diagnoses Cervical spondylosis with radiculopathy M47.22 Diabetes mellitus, type II E11.9 Vitamin D deficiency E55.9 Lumbar stenosis with neurogenic claudication M48.062 Displacement of lumbar disc with radiculopathy M51.16 Chronic diarrhea K52.9 Hypothyroidism E03.9 Hypothyroidism type: acquired Respiratory failure J96.90 Aspiration pneumonia J69.0
--- NOTE | 2021-10-14 12:27 | PC.NURSE ---
When the pt came out to phase I recovery he had an oral and nasal airway. Once the pt aroused and reached for his face I removed the oral airway. After a few minutes the pt began to hit at his nose, I then removed the nasal airway, but left the face mask on. The pt's BP was slowly rising with each reading, Dr. Gutiérrez gave me a verbal order for 5mL of labatalol. His BP began to lower after the IV dose was given. The pt's O2 sat would drift down to high 80s after removing the airways. Dominick Crane RN came over and after observing the pt suctioned his airway to see if that would help maintain his O2 sat. The pt became combative and was trying to get out of the bed, he began to pull at the wire leads on his body. Dr. Gutiérrez returned to the bedside with myself and Dominick. Nurses Love and Maria Teresa came over to help restrain the pt so he wouldn't harm himself. A total of 0.4mg of narcan was given along with 2mg Versed per Dr. Gutiérrez. It was determined we should call a rapid response to get more hands to help maintain the pt's airway and get him calmed down. A HYBRID CORN BREEDER spoke with Dr. Gutiérrez and they began a precedex drip. IV access was lost during this process. 2 additional IVs were started on the pt and also pulled out during the movements of the pt. While IV access was avalible and while soft restraints were applied a total of 4mg of Versed was given. Lucinda determined we should take the pt to ICU and get him sedated as to not harm himself post surgery and to calm down and to maintain his airway. I assisted in getting the pt to ICU. Once he was stabilized I gave report of what I had done before the code was called.
--- NOTE | 2021-10-14 12:30 | XR_ITS ---
WS: [id number] PORTABLE CHEST HISTORY: et tube stat placement COMPARISON: None available. Endotracheal tube tip ends at the level of the clavicular heads. Consider advancing 2 to 3 cm for mor e optimal positioning. Mild interstitial thickening throughout both lungs. Nasogastric tube in good position. No pleural eff usion or pneumothorax. Cardiac size: Normal. Mediastinum/Aorta: There are mildly prominent mediastinum may be on the basis of supine positioning. No osseous abnormality seen. XR/XR chest 1V portable [id number] IMPRESSION: 1. Endotracheal tube ends at the level of the clavicular heads. Consider advan cing another 2 to 3 cm for more optimal positioning. 2. Mild interstitial thickening throughout both lungs. May be due to supine po sition and some developing areas of atelectasis.
--- NOTE | 2021-10-14 12:36 | ECG_ITS ---
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 Measurements Intervals [place] Rate: 92 P: 55 MS: 170 QRS: 12 QRSD: 105 T: 11 QT: 377 QTc: 468 Interpretive Statements SINUS RHYTHM LOW QRS VOLTAGE IN PRECORDIAL LEADS [QRS DEFLECTION < 1.0 mV IN CHEST LEADS] SEPTAL MYOCARDIAL INFARCTION , OF INDETERMINATE AGE [40+ ms Q WAVE IN V1/V2] No previous ECG available for comparison Electronically Signed On 10-15-2021 12:21:47 CDT by Lex Mullins M.D. [id number]
[2021-10-14 12:48] LABS: Basophils % 0.3 %; Eosinophils # 0.1 10^3/uL (0.0-0.8); Eosinophils % 0.9 %; Hematocrit 45.8 % (42.0-52.0); Hemoglobin 15.8 g/dL (11.7-16.6); Lymphocytes # 1.4 10^3/uL (0.8-4.8); Lymphocytes % 10.3 %; Mean Corpuscular HGB Conc 34.5 g/dL (30.0-36.0); Mean Corpuscular Hemoglobin 29.6 pg (28.0-34.0); Mean Corpuscular Volume 85.9 fl (80-94); Mean Platelet Volume 10.4 fL (7.4-10.4); Monocytes # 0.4 10^3/uL (0.2-0.9); Monocytes % 2.6 %; Neutrophils # 11.64 10^3/uL (1.8-7.7); Neutrophils % 85.1 %; Nucleated Red Blood Cells % 0 %; Platelet Count 252 10^3/cmm (130-400); Red Blood Count 5.33 10^6/uL (4.1-5.3); Red Cell Distribution Width 12.8 % (12.1-15.1); White Blood Count 13.7 10^3/uL (4.0-10.0)
[2021-10-14 12:59] LABS: Troponin(5th) Baseline 6 ng/L (0-15)
[2021-10-14 13:00] LABS: Alanine Aminotransferase 72 U/L (0-41); Albumin Level 4.1 g/dL (3.5-5.2); Alkaline Phosphatase 80 IU/L (40-130); Aspartate Amino Transferase 76 U/L (0-40); Blood Urea Nitrogen 13 mg/dL (6-20); Calcium 8.1 mg/dL (8.5-10.5); Carbon Dioxide 19 mmol/L (22-29); Chloride 103 mmol/L (98-107); Globulin 3.2 g/dL (1.3-4.6); Glomerular Filtration Rate 102.7 mL/min (90-130); Glucose 232 mg/dL (65-115); Osmolality Calculated 290 mOsm/kg (285-295); Sodium 136 mmol/L (136-145); Total Bilirubin 0.4 mg/dL (0.15-1.2); Total Protein 7.3 g/dL (6.6-8.7)
[2021-10-14 13:02] LABS: INR 0.97 (0.8-1.2)
--- NOTE | 2021-10-14 13:02 | PM.MISC ---
Miscellaneous Note Note: Patient satting at 88%, increasing to 92% with slight stimulation. However, patient became agitated, pulling at lines, pulling at his O2 mask and oral airway. Oral airway removed by nursing staff. Patient became more and more agitated, writhing in bed, kicking his legs, groaning. This ended up requiring multiple people to restrain him. Patient would not settle down became diaphoretic. Narcan 0.2 and 0.2 mg IV was given in case of opioid was contributing to any confusion. This did not help orient him. Thus versed 2 mg IV was given with inadequate response. Rapid response was called at some point d/t difficulty restraining patient and threat of safety to patient and staff. Another 2 mg versed was ordered but IV was lost. Another IV was placed and versed 2 mg was given and precedex gtt was started. ICU bed was called for. Unfortunately patient still didn't calm down enough not to loose 2nd IV. Brought to ICU, 3rd IV started in foot and 2 mg versed given. Hospitalist at bedside and decision made to intubate patient. Patient was intubated w/ etomidate 20 mg, propofol 100 mg, and succininylcholine 100 mg IV using video laryngoscope. Proprofol and precedex gtt.
[2021-10-14 13:03] LABS: Partial Thromboplastin Time 34.7 SECONDS (23.9-36.7)
[2021-10-14] MEDS: ipratropium 0.5 mg/2.5 mL Neb INHALATION (13:04)
[2021-10-14] MEDS: racepinephrine 0.5 mL Neb INHALATION (13:04)
[2021-10-14 13:07] LABS: Anion Gap 17.8 (5-19); Potassium 3.8 mmol/L (3.5-5.1)
[2021-10-14 13:16] LABS: Lactate (Lactic Acid level) 3.3 mmol/L (0.5-2.2)
[2021-10-14 13:24] LABS: ABG PH Result 7.24 (7.35-7.45); Arterial Blood Gas Hematocrit 47.9 % (42-52); Base Excess ABG -5.3 mmol/L (-2.0-2.0); Blood Gas Allen Test Pos; Blood Gas Operator Identificat CAK; Blood Gas Sample Site Radial, left; Blood Gas Sample Type Arterial; HCO3 ABG 22.7 mmol/L (22-26); Oxygen Device VENT
[2021-10-14] MEDS: dexamethasone 10 mg/mL INJ IVP (13:34)
[2021-10-14] MEDS: FUROsemide 10 mg/mL SDV 2mL 20 MG IVP (13:34)
[2021-10-14] MEDS: enoxaparin 40 mg/0.4 mL Syringe SUBCUT (13:34)
[2021-10-14] MEDS: sodium chloride 0.9% 1,000 ML 75 ML IV (13:35)
[2021-10-14] MEDS: piperacillin-tazobactam 3.375 GM in sodium chloride 0.9% (plus) 50 ML IV ×2 (13:36→20:57)
--- NOTE | 2021-10-14 13:38 | USCV_ITS ---
Tremayne Soto Age: 51 Gender: M : 1970 Exam Date: 10/14/2021 14:13 Ordering Phys: Felipe Lopez MD Technologist: Jono Zapata [place] [facility] [place] post op code BP: 135 / 82 HR: 84 Rhythm: Sinus Technical Quality: Poor because of body habitus MEASUREMENTS (Male / Female) Normal Values 2D ECHO LV Diastolic Diameter PLAX 4.0 cm 4.2 - 5.9 / 3.9 - 5.3 cm LV Systolic Diameter PLAX 2.3 cm IVS Diastolic Thickness 1.3 cm 0.6 - 1.0 / 0.6 - 0.9 cm IVS Systolic Thickness 1.5 cm LVPW Diastolic Thickness 1.0 cm 0.6 - 1.0 / 0.6 - 0.9 cm LVPW Systolic Thickness 1.4 cm LVOT Diameter 2.0 cm LV Ejection Fraction 2D Teich 70.2 % LV Ejection Fraction MOD 2C 61.9 % LV Ejection Fraction 2C AL 63.2 % LA Diameter 3.5 cm M-MODE Aortic Annulus Diameter 4.2 cm LA Ao Ratio MM 0.9 MV E Point Septal Separation 0.7 cm DOPPLER AV Peak Velocity 99.0 cm/s LVOT Peak Velocity 70.0 cm/s AV Area Cont Eq vti 2.4 cm squared AV Area Cont Eq pk 2.3 cm squared MV Area PHT 5.0 cm squared Mitral E to A Ratio 0.8 MV E' Velocity 37.5 cm/s Mitral E to MV E' Ratio 8.8 Mitral E to LV E' Lateral Ratio 7.6 Mitral E to LV E' Septal Ratio 10.5 TR Peak Velocity 105.7 cm/s TR Peak Gradient 4.5 mmHg TV Peak E Velocity 68.0 cm/s Right Atrial Pressure 3.0 mmHg Pulmonary Artery Systolic Pressu 7.5 mmHg PV Peak Velocity 111.0 cm/s FINDINGS Left Ventricle The echo is a poor quality due to the patient's body habitus, lying flat on the back and intubation. The ventricle probably is within normal size. The overall LV function is normal. A rough estimate of the ejection fraction is 55%. No obvious wall motion disturbances are noted. Diastolic function was not evaluated. Right Ventricle Right ventricle not well visualized. Right Atrium Right atrium not well visualized. Left Atrium Left atrium not well visualized. Mitral Valve Mitral valve not well visualized. Aortic Valve Aortic valve not well visualized. Tricuspid Valve Tricuspid valve not well visualized. Pulmonic Valve Pulmonic valve not well visualized. Pericardium Normal pericardium without effusion. Aorta Aorta not well visualized. IVC Inferior vena cava not visualized. CONCLUSIONS The echo is a poor quality due to the patient's body habitus, lying flat on the back and intubation. The ventricle probably is within normal size. The overall LV function is normal. A rough estimate of the ejection fraction is 55%. No obvious wall motion disturbances are noted. Diastolic function was not evaluated. Dr. Lex Mullins MD (Electronically Signed) Final Date: 14 October 2021 15:17 S
--- NOTE | 2021-10-14 13:40 | XR_ITS ---
WS: [id number] XR chest 1V portable [id number] REASON FOR EXAM: ET FINDINGS: The ET tube is now positioned proximally 4 cm above the denise at the level of the aortic arch. Previ ously 7 cm above the denise. No other significant interval change. XR/XR chest 1V portable [id number] IMPRESSION: Endotracheal tube position adjustment as above.
--- NOTE | 2021-10-14 14:00 | ANE.PACU2 ---
Inpatient post-anesthesia follow up: Airway intact: No Vital signs: Temperature 97 F Pulse Rate 87 Respiratory Rate 16 Blood Pressure 135/86 Pulse Oximetry 96 Oxygen Delivery Me thod Room Air Oxygen Flow Rate 10 Fraction of Inspir ed Oxygen 30 Hydration adequate: Yes Nausea and vomiting: No Pain level: Other Mental status: Altered
[2021-10-14 14:02] LABS: INR 1.01 (0.8-1.2)
[2021-10-14 14:03] LABS: Fibrinogen 291 mg/dL (174-498); Partial Thromboplastin Time 32.7 SECONDS (23.9-36.7)
[2021-10-14 14:17] LABS: C Reactive Protein 4.5 mg/L (0.0-4.9)
[2021-10-14 14:19] LABS: Procalcitonin 0.08 ng/mL (0-0.5)
[2021-10-14 14:20] LABS: D Dimer 0.77 ug/mIFEU (0-0.59)
--- NOTE | 2021-10-14 14:36 | ECG_ITS ---
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 Measurements Intervals [place] Rate: 86 P: 55 AL: 164 QRS: 10 QRSD: 105 T: 12 QT: 384 QTc: 462 Interpretive Statements SINUS RHYTHM LOW QRS VOLTAGE IN PRECORDIAL LEADS [QRS DEFLECTION < 1.0 mV IN CHEST LEADS] PATTERN CONSISTENT WITH PULMONARY DISEASE SEPTAL MYOCARDIAL INFARCTION , OF INDETERMINATE AGE [40+ ms Q WAVE IN V1/V2] Compared to ECG 10/14/2021 13:31:36 No significant changes Electronically Signed On 10-15-2021 12:32:59 CDT by Lex Mullins M.D. [id number]
[2021-10-14 16:09] LABS: ABG PCO2 46.2 mmHg (35-45); ABG PH Result 7.28 (7.35-7.45); Arterial Blood Gas Hematocrit 50.8 % (42-52); Base Excess ABG -5.4 mmol/L (-2.0-2.0); Blood Gas Allen Test Pos; Blood Gas Operator Identificat CAK; Blood Gas Sample Site Radial, left; Blood Gas Sample Type Arterial; Blood Gas Tidal Volume 0.55; HCO3 ABG 21.6 mmol/L (22-26); Oxygen Device VENT
[2021-10-14] MEDS: propofol 1,000 MG/100 ML INJ 26.94 MG IV ×2 (16:13→19:28)
[2021-10-14 16:17] LABS: Lactate (Lactic Acid level) 1.5 mmol/L (0.5-2.2)
[2021-10-14 16:29] LABS: Troponin 5 2HR Delta 0 ABS# (0-10)
--- NOTE | 2021-10-14 16:48 | PC.NURSE ---
when respritory here drawing abgs pt awaken again and agitated and kicking at staff when attempting to hold hand to calm him down he clamped down hard on hands .. reposition and pulled up in bed increased sedation
[2021-10-14 17:35] LABS: Glucose Point of Care 211 mg/dL (70-110)
[2021-10-14] MEDS: insulin lispro 100 unit/1 mL SUBCUT ×2 (17:44→20:56)
--- NOTE | 2021-10-14 18:36 | ECG_ITS ---
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 Measurements Intervals [place] Rate: 89 P: 61 VT: 163 QRS: 15 QRSD: 106 T: 15 QT: 379 QTc: 463 Interpretive Statements SINUS RHYTHM LOW QRS VOLTAGE IN PRECORDIAL LEADS [QRS DEFLECTION < 1.0 mV IN CHEST LEADS] POSSIBLE ANTERIOR MYOCARDIAL INFARCTION , OF INDETERMINATE AGE [30 ms Q WAVE IN V3/V4, OR R < 0.2 mV IN V4] Compared to ECG 10/14/2021 14:44:51 No significant changes Electronically Signed On 10-15-2021 12:33:57 CDT by Lex Mullins M.D. [id number]
--- NOTE | 2021-10-14 19:15 | PC.NURSE ---
Called Dr. Lopze to verify order for 5units regular insulin IV x 1 dose. Notified him that blood glucose of 211 on previous check had already been covered per sliding scale. Order given to D/C 5units IV regular insulin order.
[2021-10-14 19:23] LABS: Basophils % 0.2 %; Eosinophils % 0.1 %; Hematocrit 45.4 % (42.0-52.0); Hemoglobin 15.8 g/dL (11.7-16.6); Lymphocytes # 0.9 10^3/uL (0.8-4.8); Lymphocytes % 5.7 %; Mean Corpuscular HGB Conc 34.8 g/dL (30.0-36.0); Mean Corpuscular Hemoglobin 29.6 pg (28.0-34.0); Mean Corpuscular Volume 85.2 fl (80-94); Mean Platelet Volume 10.8 fL (7.4-10.4); Monocytes # 0.4 10^3/uL (0.2-0.9); Monocytes % 2.5 %; Neutrophils # 14.72 10^3/uL (1.8-7.7); Neutrophils % 90.8 %; Nucleated Red Blood Cells % 0 %; Platelet Count 236 10^3/cmm (130-400); Red Blood Count 5.33 10^6/uL (4.1-5.3); Red Cell Distribution Width 12.4 % (12.1-15.1); White Blood Count 16.2 10^3/uL (4.0-10.0)
[2021-10-14 19:35] LABS: Ketone (Acetest) Serum Negative (Negative)
[2021-10-14] MEDS: ipratropium-albuterol 3 mL Neb INHALATION (19:40)
[2021-10-14] MEDS: budesonide 0.5 mg/2 mL Neb INHALATION (19:40)
[2021-10-14 19:46] LABS: Anion Gap 18.5 (5-19); Blood Urea Nitrogen 13 mg/dL (6-20); Calcium 8.6 mg/dL (8.5-10.5); Carbon Dioxide 21 mmol/L (22-29); Chloride 101 mmol/L (98-107); Glomerular Filtration Rate 119.9 mL/min (90-130); Glucose 222 mg/dL (65-115); Osmolality Calculated 289 mOsm/kg (285-295); Potassium 4.5 mmol/L (3.5-5.1); Sodium 136 mmol/L (136-145)
[2021-10-14 19:49] LABS: Troponin 5 6HR Delta 0 ng/L (0-12)
--- NOTE | 2021-10-14 20:00 | PC.NURSE ---
Dr. Lopez called and ordered and ABG now and call Dr. Lopez with results. Notified RT Tawanna of order.
[2021-10-14 20:06] LABS: Add Urine Microscopic? YES; Bacteria Urine TRACE /hpf; Bilirubin Urine Neg (Negative); Blood Urine Neg (Negative); Glucose Urine UA Norm (Normal); Ketones Urine Negative (Negative); Leukocyte Esterase Urine Negative (Negative); Nitrate Urine Negative (Negative); Protein Urine Trace (Negative); RBC Urine 0-4 /hpf (0-2); Specific Gravity, Urine 1.015 (1.005-1.030); Squamous Epithelial Cell Urine 0-4 /hpf (0-5); Urine Appearance Cloudy (CLEAR); Urine Color Yellow (Yellow); Urobilinogen Urine Norm (Negative); WBC Urine 0-4 /hpf (0-5); pH Urine 5 (5-7)
[2021-10-14 20:07] LABS: Add Urine Culture? No; Uric Acid Crystals Urine >100 /hpf
[2021-10-14 20:52] LABS: Glucose Point of Care 220 mg/dL (70-110)
--- NOTE | 2021-10-14 21:10 | PC.NURSE ---
Called , Catherine Soto, updated on patient status and answered questions.
[2021-10-14 21:18] LABS: ABG PCO2 43.9 mmHg (35-45); ABG PH Result 7.33 (7.35-7.45); Alveolar-Arterial Oxygen Gradi 20.6 mmHg (5-10); Arterial Blood Gas Hematocrit 48.6 % (42-52); Base Excess ABG -2.8 mmol/L (-2.0-2.0); Blood Gas Allen Test Pos; Blood Gas Operator Identificat JB; Blood Gas Sample Site Radial, right; Blood Gas Sample Type Arterial; Blood Gas Tidal Volume 0.55; Carboxyhemoglobin 0.9 %THgb (0.4-20.1); HCO3 ABG 23.3 mmol/L (22-26); HGB O2 Sat 95.5 % (95-100); Ionized Calcium Level - ABG 1.2 mmol/L (1.1-1.4); Methemoglobin 0.2 % (0.4-1.5); Oxygen Device VENT; Oxygen Saturation ABG 96.5; PO2 ABG 71.8 mmHg (80.0-100.0); Total Hemoglobin 15.8 g/dL (14-18)
--- NOTE | 2021-10-14 21:28 | CTR_ITS ---
PROCEDURE INFORMATION: Exam: CT Neck With Contrast Exam date and time: 10/14/2021 10:04 PM Age: 51 years old Clinical indication: Mass, lump, or swelling in neck and other: Paratracheal swelling; Prior surgery; Surgery date: Post-operative (0-2 days); Surgery type: Anterior cervical fusion; Additional info: Neck swelling TECHNIQUE: Imaging protocol: Computed tomography of the neck with contrast. Radiation optimization: All CT scans at this facility use at least one of these dose optimization techniques: automated exposure control; mA and/or kV adjustment per patient size (includes targeted exams where dose is matched to clinical indication); or iterative reconstruction. Contrast material: OMNI 300; Contrast volume: 95 ml; Contrast route: INTRAVENOUS (IV); COMPARISON: CT cervical spine w con [id number] 11/26/2019 10:29 AM RADIATION DOSE METRICS: Total DLP (mGy-cm): 527.55 FINDINGS: Tubes, catheters and devices: Partially visualized ET tube and NG tube. The posterior nasopharynx and oropharynx are difficult to assess due to presence of ET and NG tube however no large regional soft tissue masses are present. Paranasal sinuses: Moderate left and mild right maxillary and mild ethmoid and frontal sinus mucosal thickening. Pharynx: Unremarkable. No significant tonsillar enlargement. Larynx: Unremarkable. Epiglottis is normal. Prevertebral and retropharyngeal spaces: Unremarkable. Salivary glands: Normal. Glands are normal in size. Thyroid: Normal. No enlarged or calcified nodules. Lymph nodes: See Trachea finding. Trachea: No evidence of significant tracheal deviation or tech create narrow narrowing/extrinsic compression. Next item no obvious superficial soft tissue neck masses, fluid collection or enlarged adenopathy. Scattered foci of soft tissue air is seen at the anterior inferior margin of the right sternocleidomastoid and along the jugular carotid region. Scattered foci of soft tissue air is also noted in the midline anterior to the upper trachea. No regional fluid collection or acute inflammatory response is identified. Please also refer to chest CT exam report dictated separately which demonstrates trace amount of air in the upper anterior chest. These findings are likely postop in nature. Lungs: Unremarkable as visualized. Bones/joints: Unremarkable. No acute fracture. Anterior surgical fusion at C5 through C7 in good alignment with intervertebral prosthesis. Soft tissues: See Trachea finding. Soft tissues: Unremarkable. No significant soft tissue swelling. CT/CT neck w con* [id number] IMPRESSION: 1. Scattered small foci of soft tissue air in the right lower anterior and midline neck region, presumably postop. No discrete fluid collection or acute edema/significant inflammatory response. No discrete mass or adenopathy. 2. Difficult to assess johan pharyngeal and nasopharyngeal spaces due to presence of endotracheal and nasogastric tube however no large masses or abscess are identified. 3. Sinus findings as above.
--- NOTE | 2021-10-14 21:28 | CTR_ITS ---
PROCEDURE INFORMATION: Exam: CT Chest Without Contrast; Diagnostic Exam date and time: 10/14/2021 10:01 PM Age: 51 years old Clinical indication: Other: Possible aspiration; Patient HX: Extubated x3 post cervical fusion TECHNIQUE: Imaging protocol: Diagnostic computed tomography of the chest without contrast. Radiation optimization: All CT scans at this facility use at least one of these dose optimization techniques: automated exposure control; mA and/or kV adjustment per patient size (includes targeted exams where dose is matched to clinical indication); or iterative reconstruction. COMPARISON: CR XR chest 1V portable [id number] 10/14/2021 1:52 PM RADIATION DOSE METRICS: Total DLP (mGy-cm): 875.86 FINDINGS: Tubes, catheters and devices: Support tubes and lines are in good position. Lungs: Bilateral lower lobe opacities which could be secondary to aspiration pneumonia or atelectasis. Pleural spaces: Small bilateral pleural effusions. Heart: Mild coronary artery calcifications. Lymph nodes: Multiple, nonspecific, enlarged mediastinal lymph nodes, likely reactive. Vasculature: Unremarkable. No aortic aneurysm. Liver: There is fatty infiltration of the liver. Bones/joints: There is anterior fusion hardware in the cervical spine. Small amount of soft tissue gas is present in the suprasternal region, likely related to recent surgery. Soft tissues: See Bones/joints finding. Other findings: Examination limited by body habitus. CT/CT chest [facility] [id number] IMPRESSION: 1. Examination limited by body habitus. 2. Support tubes and lines are in good position. 3. Fatty infiltration of the liver. 4. Small bilateral pleural effusions. 5. Bilateral lower lobe opacities which could be secondary to aspiration pneumonia or atelectasis. 6. Multiple, nonspecific, enlarged mediastinal lymph nodes, likely reactive. 7. Small amount of soft tissue gas is present in the suprasternal region, likely related to recent surgery.
--- NOTE | 2021-10-14 21:30 | PC.NURSE ---
Notified Dr. Lopez of [facility] results. Notified that ananth, patients , has asked if a CT of chest could be done on patient. Order given to obtain CT of chest and to do CT of neck now instead of in the AM.
--- NOTE | 2021-10-14 22:15 | PC.NURSE ---
Taken to CT via bed with RT at bedside bagging patient. playground monitor in place. CT of chest and neck obtained. Returned to ICU room 10 via bed. V/S remain stable.
[2021-10-14] MEDS: propofol 1,000 MG/100 ML INJ 35.92 MG IV (22:39)
[2021-10-15] VITALS (18 sets, daily range): BP systolic 97–144; BP diastolic 56–86; PULSE 79–105; RESP 10–28; TEMP 36.1–36.8; O2SAT 93–97
[2021-10-15] MEDS: propofol 1,000 MG/100 ML INJ 35.92 MG IV ×2 (01:40→04:19)
[2021-10-15] MEDS: sodium chloride 0.9% 1,000 ML 75 ML IV (02:20)
[2021-10-15] MEDS: dexmedeTOMIDine 0.9 % NaCL 400 MCG/100 ML PREMIX IV (03:40)
--- NOTE | 2021-10-15 03:42 | PC.NURSE ---
Becomes very agitated and pulling at tubes and lines. Increased propofol to 50mcg/kg/min, attempted to calm and reorient.
[2021-10-15 04:38] LABS: ABG PCO2 42.8 mmHg (35-45); ABG PH Result 7.36 (7.35-7.45); Base Excess ABG -1.8 mmol/L (-2.0-2.0); Blood Gas Allen Test Pos; Blood Gas Operator Identificat JB; Blood Gas Sample Site Radial, left; Blood Gas Sample Type Arterial; Blood Gas Tidal Volume 0.55; HCO3 ABG 23.9 mmol/L (22-26); PO2 ABG 74.9 mmHg (80.0-100.0)
[2021-10-15] MEDS: piperacillin-tazobactam 3.375 GM in sodium chloride 0.9% (plus) 50 ML IV (04:59)
[2021-10-15 05:56] LABS: Basophils % 0.2 %; Hematocrit 42.9 % (42.0-52.0); Hemoglobin 14.6 g/dL (11.7-16.6); Lymphocytes % 4.2 %; Mean Corpuscular Hemoglobin 29.2 pg (28.0-34.0); Mean Corpuscular Volume 85.8 fl (80-94); Mean Platelet Volume 11.2 fL (7.4-10.4); Monocytes # 1.1 10^3/uL (0.2-0.9); Monocytes % 4.5 %; Neutrophils # 20.86 10^3/uL (1.8-7.7); Neutrophils % 90.1 %; Nucleated Red Blood Cells % 0 %; Platelet Count 255 10^3/cmm (130-400); Red Cell Distribution Width 12.5 % (12.1-15.1); White Blood Count 23.2 10^3/uL (4.0-10.0)
[2021-10-15 06:17] LABS: Blood Urea Nitrogen 11 mg/dL (6-20); Carbon Dioxide 23 mmol/L (22-29); Chloride 105 mmol/L (98-107); Glomerular Filtration Rate 119.9 mL/min (90-130); Osmolality Calculated 293 mOsm/kg (285-295); Sodium 139 mmol/L (136-145)
--- NOTE | 2021-10-15 06:27 | PC.NURSE ---
Propofol weaned to off, fentanyl weaned to 100mcg/hr, precedex infusing at 0.6mcg/kg/hr. Resting comfortably at present time.
[2021-10-15] MEDS: dexmedeTOMIDine 0.9 % NaCL 400 MCG/100 ML PREMIX 26.2 MCG IV (06:44)
--- NOTE | 2021-10-15 07:34 | P.PN_ITS ---
Subjective Subjective: Repeat blood gas yesterday night it showed improvement of mixed acidosis This morning he was put on Precedex, did well with weaning trial, he was successfully extubated to nasal cannula When he was examined second time, he was able to take a sip of juice, he was saturating 97 to 100% on room air, he is very concerned about use of opioids because of his opiate addiction in the past, he stated that he has been able to manage his pain with marijuana He has been coughing, afebrile, leukocytosis most likely secondary to use of high-dose steroids yesterday He was also given budesonide today I encouraged patient to walk in the ICU, After extubation he is awake and alert Able to talk without any difficulty Able to drink juice Clouded thinking noticed by his nurse this morning, on my second visit patient was much more awake and alert he was emotionally labile thinking about his kids and missing time with them because of his opioid addiction in the past He is motivated and wants to go home if stable today When I asked him about opiate prescription at home he stated that he would rather avoid it but with his recent surgery he would prefer to have prescription in case he would need any opioids in future Vitals/I&O/Wt Last Vital Signs Temp 98.2 F 10/15/21 00:00 Pulse 79 10/15/21 06:00 Resp 16 10/15/21 06:00 BP 102/70 10/15/21 06:00 Pulse Ox 95 10/15/21 06:00 10/14/21 10/15/21 10/15/21 22:59 06:59 14:59 Intake Total 383.888 / 815.932 8783.067 / 2308.736 Output Total 1700 / 1950 1300 / 3250 Balance -1316.112 / -1067.331 126.067 / -941.264 Weight last 48 hrs Weight 149.05 kg Physical Exam Narrative: Patient extubated today to room air Doing well Disorganized thinking: Improved No signs of delusion Multiple skin tattoos Euvolemic Awake and alert Oriented x3 GCS 15 No signs of vascular compromise No signs of stridor or wheezing Bilateral breath sounds without any adventitious sounds Abdomen soft, visceral obesity Patient has muscular physique I do not appreciate any signs of fluid overload or dehydration Is able to cough, drinking juice Urinary Catheter Management: Valentin: Cath Placed During This Visit: yes Reason for Continuing Indwelling Catheter: Accurate Measurement of Urinary Output in Critically Ill Patients Urinary Catheter Date of Insertion: 10/14/21 Urinary Catheter Time of Insertion: 12:45 Data : 10/15/21 04:55 10/15/21 04:55 Micro: Microbiology 10/14/21 15:35 Blood Culture - Preliminary Blood SPECIMEN COLLECTED 10/14/21 15:28 Blood Culture - Preliminary Blood SPECIMEN COLLECTED A&P Assessment and plan (1) Aspiration pneumonia: Status: Acute (2) Respiratory failure: Status: Acute (3) Cervical spondylosis with radiculopathy: Status: Acute (4) Elevated WBC count: Status: Acute (5) Diabetes mellitus, type II: Status: Acute (6) Vitamin D deficiency: Status: Acute (7) Hypothyroidism: Status: Acute Qualifiers: Hypothyroidism type: acquired Qualified Code(s): E03.9 - Hypothyroidism, unspecified Plan Postoperative airway compromise with active stridor Patient was intubated postoperatively 10/14(this was his third endotracheal tube placement by Dr. Guzman as per the report, he was intubated twice in perioperative period) His blood gas did show improvement with appropriate settings of his ventilator Successfully extubated to room air 10/15 Aspiration pneumonia Leukocytosis likely secondary to use of steroids He has been afebrile We will give him Augmentin Discontinue Zosyn D-dimer 0.7, he does not need PE work-up Postop day 1 Complaining of back pain, patient stating he cannot lay on his back At the same time he also avoid taking opioids Would do overdose for now Advanced diet later today Currently doing well I have encouraged patient to get out of bed and walk around I might be able to discharge him later today versus tomorrow morning Type 2 diabetes Hyperglycemia, hemoglobin A1c 6.6 however lower from before Lactic acidemia secondary to hypoxia and physical exertion: Improved Patient does not show signs of sepsis Full code Advance diet to consis carb Plan for disposition later today versus tomorrow notified Attestations Medical Necessity Statement*: Discharge later today versus tomorrow morning Time Spent in Patient Care: 40 Coding Level of Care Code Acute Supervisor Hand Workers for g Fwd Diagnoses Aspiration pneumonia J69.0 Respiratory failure J96.90 Cervical spondylosis with radiculopathy M47.22 Elevated WBC count D72.829 Diabetes mellitus, type II E11.9 Vitamin D deficiency E55.9 Hypothyroidism E03.9 Hypothyroidism type: acquired
[2021-10-15] MEDS: ipratropium-albuterol 3 mL Neb INHALATION (07:39)
[2021-10-15] MEDS: budesonide 0.5 mg/2 mL Neb INHALATION (07:39)
[2021-10-15 07:45] LABS: Glucose Point of Care 204 mg/dL (70-110)
[2021-10-15 08:16] LABS: Anion Gap 15.1 (5-19); Potassium 4.1 mmol/L (3.5-5.1)
[2021-10-15 08:17] LABS: C Reactive Protein 12.4 mg/L (0.0-4.9); Calcium 8.3 mg/dL (8.5-10.5); Glucose 196 mg/dL (65-115)
[2021-10-15] MEDS: insulin lispro 100 unit/1 mL SUBCUT ×2 (08:24→12:11)
--- NOTE | 2021-10-15 08:43 | PC.NURSE ---
sedation off at this time is responding to questions at this time ... extubated and removed ng tube at this time ..
--- NOTE | 2021-10-15 11:25 | XRR_ITS ---
PROCEDURE INFORMATION: Exam: XR Left Wrist Exam date and time: 10/15/2021 12:17 PM Age: 51 years old Clinical indication: Pain; Wrist; Left; Additional info: Swelling TECHNIQUE: Imaging protocol: Radiologic exam of the Left wrist. Views: 1 or 2 views. COMPARISON: CR (UP EX, ) 10/15/2021 12:15 PM FINDINGS: Bones/joints: Negative for acute bony abnormality. Soft tissues: Diffuse soft tissue edema dorsal aspect of the hand XR/XR wrist LT w scaphoid [id number] IMPRESSION: 1. No acute bone abnormality 2. Diffuse soft tissue edema dorsal hand
--- NOTE | 2021-10-15 11:53 | XRR_ITS ---
PROCEDURE INFORMATION: Exam: XR Left Hand Exam date and time: 10/15/2021 12:15 PM Age: 51 years old Clinical indication: Pain; Hand; Left TECHNIQUE: Imaging protocol: Radiologic exam of the Left hand. Views: 3 or more views. COMPARISON: No relevant prior studies available. FINDINGS: Bones/joints: Negative for acute bone abnormality. Soft tissues: There is diffuse soft tissue edema in the dorsal aspect of the hand XR/XR hand LT 2V [id number] IMPRESSION: 1. No acute bone abnormality. 2. Diffuse edema dorsal hand
[2021-10-15 12:05] LABS: Glucose Point of Care 192 mg/dL (70-110)
[2021-10-15] MEDS: enoxaparin 30 mg/0.3 mL Syringe SUBCUT (12:11)
[2021-10-15 12:26] LABS: Oxygen Device VENT
--- NOTE | 2021-10-15 12:51 | PM.PN ---
Subjective Subjective: Patient was intubated after surgery because he woke up kind of wild. At this point patient has been extubated and doing well. Just complains of neck pain. Patient does state that the symptoms he has had before surgery are now improved significantly. Vitals/I&O/Wt Last Vital Signs Temp 97 F L 10/15/21 10:00 Pulse 102 H 10/15/21 10:00 Resp 28 H 10/15/21 10:00 BP 135/86 10/15/21 10:00 Pulse Ox 97 10/15/21 10:00 10/14/21 10/15/21 10/15/21 22:59 06:59 14:59 Intake Total 383.888 / 229.058 0904.067 / 2308.736 469.180 / 469.180 Output Total 1700 / 1950 1300 / 3250 400 / 400 Balance -1316.112 / -1067.331 126.067 / -941.264 69.180 / 69.180 Weight last 48 hrs Weight 328 lb 9.6 oz Physical Exam Narrative: Sitting on the bedside doing well. Urinary Catheter Management: Valentin: Cath Placed During This Visit: yes Reason for Continuing Indwelling Catheter: Accurate Measurement of Urinary Output in Critically Ill Patients Urinary Catheter Date of Insertion: 10/14/21 Urinary Catheter Time of Insertion: 12:45 Data : 10/15/21 04:55 10/15/21 04:55 Micro: Microbiology 10/14/21 13:00 Gram Stain - Final Sputum - Endotracheal Tube Aspirate Sputum Culture - Preliminary 10/14/21 15:35 Blood Culture - Preliminary Blood SPECIMEN COLLECTED 10/14/21 15:28 Blood Culture - Preliminary Blood SPECIMEN COLLECTED A&P Assessment and plan (1) Encounter for postoperative care: Postop day 1 two-level ACDF. Okay for patient to be discharged home today. Status: Acute Attestations Medical Necessity Statement*: Discharge today Coding Level of Care Code Acute [employer] Inspector for Jeromy [place] Diagnoses Encounter for postoperative care Z48.89
--- NOTE | 2021-10-15 12:53 | PM.DCS ---
Discharge Providers Date of Admission: 10/14/21 12:05 Date of Discharge: October 15, 2021 Attending Provider at Admission: Kenny Gomez DO Attending Provider at Discharge: Kenny Gomez DO Primary Care Provider: Lucinda Boateng APN Diagnoses at Discharge Discharge Diagnosis (1) Encounter for postoperative care: Status: Acute Reason for Visit Reason for Visit: ACDF C5/6 6/7 [id number] Hospital Course Hospital Course Patient was reintubated after surgery he was unable to protect his own airway. He was extubated today and doing well. Physical Exam Urinary Catheter Management: Valentin: Cath Placed During This Visit: yes Reason for Continuing Indwelling Catheter: Accurate Measurement of Urinary Output in Critically Ill Patients Urinary Catheter Date of Insertion: 10/14/21 Urinary Catheter Time of Insertion: 12:45 Discharge Data Studies Completed and Pending Completed Studies During Hospitalization Category Date Time Status CT chest wo con [id number] Routine Cat Scan 10/14/21 21:[address] neck w con* [id number] Stat Cat Scan 10/14/21 21:28 Completed CXRP [XR chest 1V portable [id number]] Stat Exams 10/14/21 12:30 Completed XR cervical spine 3V* [id number] Routine Exams 10/14/21 Completed XR chest 1V portable [id number] Routine Exams 10/14/21 13:40 Completed CV. echo complete* [id number] Routine Ultrasound 10/14/21 13:38 Completed Pending at discharge Category Date Time Status C-arm Fluoroscopy 94710 Routine Exams 10/14/21 05:50 Taken XR hand LT 2V [id number] Routine Exams 10/15/21 11:53 Taken XR wrist left with navicular [XR wrist LT w scaphoid Exams 10/15/21 11:25 Taken [id number]] Routine Basic Metabolic Panel AM LABS Lab 10/16/21 04:00 Ordered Blood Culture Stat Lab 10/14/21 15:35 Results Complete Blood Count w/Auto AM LABS Lab 10/16/21 04:00 Ordered MRSA by PCR Routine Lab 10/14/21 14:00 Received Sputum Culture and Gram Stain Stat Lab 10/14/21 13:00 Results Urine Culture Stat Lab 10/14/21 18:27 Received Radiology Impressions Cervical Spine X-Ray 10/14/21 00:00 IMPRESSION: Postoperative cervical spine without abnormality. Chest X-Ray 10/14/21 13:40 IMPRESSION: Endotracheal tube position adjustment as above. Chest CT 10/14/21 21:28 IMPRESSION: 1. Examination limited by body habitus. 2. Support tubes and lines are in good position. 3. Fatty infiltration of the liver. 4. Small bilateral pleural effusions. 5. Bilateral lower lobe opacities which could be secondary to aspiration pneumonia or atelectasis. 6. Multiple, nonspecific, enlarged mediastinal lymph nodes, likely reactive. 7. Small amount of soft tissue gas is present in the suprasternal region, likely related to recent surgery. Neck CT 10/14/21 21:28 IMPRESSION: 1. Scattered small foci of soft tissue air in the right lower anterior and midline neck region, presumably postop. No discrete fluid collection or acute edema/significant inflammatory response. No discrete mass or adenopathy. 2. Difficult to assess johan pharyngeal and nasopharyngeal spaces due to presence of endotracheal and nasogastric tube however no large masses or abscess are identified. 3. Sinus findings as above. Laboratory Results WBC 23.2 10^3/uL (4.0-10.0) H 10/15/21 04:55 RBC 5.00 10^6/uL (4.1-5.3) 10/15/21 04:55 Hgb 14.6 g/dL (11.7-16.6) 10/15/21 04:55 Hct 42.9 % (42.0-52.0) 10/15/21 04:55 MCV 85.8 fl (80-94) 10/15/21 04:55 MCH 29.2 pg (28.0-34.0) 10/15/21 04:55 MCHC 34.0 g/dL (30.0-36.0) 10/15/21 04:55 RDW 12.5 % (12.1-15.1) 10/15/21 04:55 Plt Count 255 10^3/cmm (130-400) 10/15/21 04:55 MPV 11.2 fL (7.4-10.4) H 10/15/21 04:55 Neut % (Auto) 90.1 % 10/15/21 04:55 Lymph % (Auto) 4.2 % 10/15/21 04:55 [place] % (Auto) 4.5 % 10/15/21 04:55 Eos % (Auto) 0.0 % 10/15/21 04:55 Baso % (Auto) 0.2 % 10/15/21 04:55 Neut # (Auto) 20.86 10^3/uL (1.8-7.7) H 10/15/21 04:55 Lymph # (Auto) 1.0 10^3/uL (0.8-4.8) 10/15/21 04:55 [place] # (Auto) 1.1 10^3/uL (0.2-0.9) H 10/15/21 04:55 Eos # (Auto) 0.0 10^3/uL (0.0-0.8) 10/15/21 04:55 Baso # (Auto) 0.0 10^3/uL (0.0-0.1) 10/15/21 04:55 Nucleated RBC % (auto) 0 % 10/15/21 04:55 Nucleated RBCs # 0.0 /100WBC 10/15/21 04:55 PT 13.60 SECONDS (12.1-14.9) 10/14/21 13:34 INR 1.01 (0.8-1.2) 10/14/21 13:34 APTT 32.7 SECONDS (23.9-36.7) 10/14/21 13:34 Fibrinogen 291 mg/dL (174-498) 10/14/21 13:34 Fibrin Degrad Products Neg, <10 ug/mL (NEG) 10/14/21 13:34 D-Dimer 0.77 ug/mIFEU (0-0.59) H 10/14/21 13:34 Specimen Type Arterial 10/15/21 04:26 Sample Site Radial, left 10/15/21 04:26 ABG pH 7.36 (7.35-7.45) 10/15/21 04:26 ABG pCO2 42.8 mmHg (35-45) 10/15/21 04:26 ABG pO2 74.9 mmHg (80.0-100.0) L 10/15/21 04:26 ABG HCO3 23.9 mmol/L (22-26) 10/15/21 04:26 ABG O2 Saturation 96.5 10/14/21 21:05 ABG Base Excess -1.8 mmol/L (-2.0-2.0) 10/15/21 04:26 Julien Test Pos 10/15/21 04:26 A-a O2 Gradient 20.6 mmHg (5-10) H 10/14/21 21:05 Hematocrit 47.0 % (42-52) 10/15/21 04:26 Hgb O2 Saturation 95.5 % (95-100) 10/14/21 21:05 Carboxyhemoglobin 0.9 %THgb (0.4-20.1) 10/14/21 21:05 Methemoglobin 0.2 % (0.4-1.5) L 10/14/21 21:05 Total Hemoglobin 15.8 g/dL (14-18) 10/14/21 21:05 Sodium 139.0 mmol/L (131-143) 10/14/21 21:05 Potassium 4.0 mmol/L (3.5-5.0) 10/14/21 21:05 Glucose 224.0 mg/dL (70-115) H 10/14/21 21:05 Ionized Calcium 1.2 mmol/L (1.1-1.4) 10/14/21 21:05 O2 Delivery Device Vent 10/15/21 04:26 FiO2 40.0 % 10/15/21 04:26 Tidal Volume 0.55 10/15/21 04:26 PEEP 8.0 cmH20 10/15/21 04:26 Warehouse Manager ID Esau 10/15/21 04:26 Sodium 139 mmol/L (136-145) 10/15/21 04:55 Potassium 4.1 mmol/L (3.5-5.1) 10/15/21 04:55 Chloride 105 mmol/L (98-107) 10/15/21 04:55 Carbon Dioxide 23 mmol/L (22-29) 10/15/21 04:55 Anion Gap 15.1 (5-19) 10/15/21 04:55 BUN 11 mg/dL (6-20) 10/15/21 04:55 Creatinine 0.7 mg/dL (0.7-1.2) 10/15/21 04:55 GFR Calculation 119.9 mL/min (90-130) 10/15/21 04:55 Glucose 196 mg/dL (65-115) H 10/15/21 04:55 POC Glucose 192 mg/dL (70-110) H 10/15/21 12:02 Calculated Osmolality 293 mOsm/kg (285-295) 10/15/21 04:55 Lactate 3.3 mmol/L (0.5-2.2) H 10/14/21 Unknown Calcium 8.3 mg/dL (8.5-10.5) L 10/15/21 04:55 Total Bilirubin 0.4 mg/dL (0.15-1.2) 10/14/21 12:30 AST 76 U/L (0-40) H 10/14/21 12:30 ALT 72 U/L (0-41) H 10/14/21 12:30 Alkaline Phosphatase 80 IU/L (40-130) 10/14/21 12:30 Troponin T Baseline 6 ng/L (0-15) 10/14/21 12:30 Troponin T 120 Minute 6.00 ng/L (0-15) 10/14/21 15:35 Delta Troponin T 0 ABS# (0-10) 10/14/21 15:35 Troponin T Hi Sens 6Hr 6.00 ng/L (0-15) 10/14/21 19:00 Troponin T Hi Sens 6Hr Delta 0 ng/L (0-12) 10/14/21 19:00 C-Reactive Protein 12.4 mg/L (0.0-4.9) H 10/15/21 04:55 Total Protein 7.3 g/dL (6.6-8.7) 10/14/21 12:30 Albumin 4.1 g/dL (3.5-5.2) 10/14/21 12:30 Globulin 3.2 g/dL (1.3-4.6) 10/14/21 12:30 Procalcitonin 0.08 ng/mL (0-0.5) 10/14/21 13:36 Urine Color Yellow (Yellow) 10/14/21 18: Urine Appearance Cloudy (CLEAR) 10/14/21 18: Urine pH 5 (5-7) 10/14/21 18:27 Ur Specific [place] 1.015 (1.005-1.030) 10/14/21 18:27 Urine Protein Trace (Negative) 10/14/21 18: Urine Glucose (UA) Norm (Normal) 10/14/21 18: Urine Ketones Negative (Negative) 10/14/21 18:27 Urine Blood Neg (Negative) 10/14/21 18:27 Urine Nitrate Negative (Negative) 10/14/21 18:27 Urine Bilirubin Neg (Negative) 10/14/21 18:27 Urine Urobilinogen Norm mg/dL (Negative) 10/14/21 18:27 Ur Leukocyte Esterase Negative (Negative) 10/14/21 18:27 Urine RBC 0-4 /hpf (0-2) H 10/14/21 18:27 Urine WBC 0-4 /hpf (0-5) H 10/14/21 18:27 Ur Squamous Epith Cells 0-4 /hpf (0-5) H 10/14/21 18:27 Uric Acid Crystals >100 /hpf H 10/14/21 18:27 Amorphous Sediment Not Reportable 10/14/21 18:27 Urine Bacteria Trace /hpf (NONE) 10/14/21 18:27 Serum Ketones Negative (Negative) 10/14/21 19:00 Vitals Last Vital Signs Temp 97 F L 10/15/21 10:00 Pulse 102 H 10/15/21 10:00 Resp 28 H 10/15/21 10:00 BP 135/86 10/15/21 10:00 Pulse Ox 97 10/15/21 10:00 Discharge Plan Discharge Condition: Stable Prescriptions: New hydrocodone-acetaminophen 5-325 mg tablet 1 - 2 tab PO .Q4-6H Qty: 40 0RF Continued MEDICAL MARIJUANA 1 puff as directed PRN PRN (Reason: Pain) 0RF albuterol sulfate [ProAir HFA] 90 mcg/actuation HFA aerosol inhaler 1 inh inhalation Q6H PRN (Reason: shortness of breath or wheezing) 30 Days Qty: 8.5 2RF (DME) [place] J Collar See Rx Instructions .Route .MEDSUPPLY Qty: 1 0RF Rx Instructions: As directed celecoxib [Celebrex] 200 mg capsule 200 mg PO BID Qty: 60 2RF sodium chloride 0.9 % Solution 5 ml epidural ONCE Qty: 1 0RF bupivacaine (PF) 0.25 % (2.5 mg/mL) solution 2 ml Infiltration ONCE Qty: 1 0RF Rx Instructions: q 3 to 6 months dexamethasone sodium phos (PF) 10 mg/mL solution 8 mg Infiltration ONCE Qty: 0.8 0RF cyclobenzaprine 10 mg tablet 10 mg PO TID PRN (Reason: muscle spasm) Qty: 30 2RF budesonide-formoterol [Symbicort] 160-4.5 mcg/actuation HFA aerosol inhaler 2 inh inhalation BID Qty: 10.2 0RF gabapentin 300 mg capsule 300 mg PO TID Qty: 90 1RF (DME) Bone growth Stimulator E0748 See Rx Instructions .Route .MEDSUPPLY Qty: 1 0RF Rx Instructions: As directed metformin 500 mg tablet 500 mg PO DAILY 0RF Rx Instructions: TAKE 1 TABLET BY MOUTH DAILY rosuvastatin 5 mg tablet 5 mg PO DAILY 0RF Rx Instructions: TAKE 1 TABLET BY MOUTH DAILY Discharge Orders: Discharge Order (Routine); Ordered 10/14/21 Ordered By: Kenny Gomez Discharge Diet: Advance as tolerated Discharge Activity: Resume usual activity, Increase activity as tolerated and Limit activity as instructed Activity Restrictions/Additional Instructions: Thank you for choosing [facility] for your care! The following is a list of instructions, from your provider, to follow upon your discharge to ensure you have the optimal recovery from your recent injury or surgery. Anterior Cervical Discectomy and Fusion: What to Expect at Home Your Recovery Follow-up care is a kirk part of your treatment and safety. Be sure to make and go to all appointments, and call your doctor if you are having problems. If you do not already have a follow-up appointment made, call office in the next 1-3 days to make follow up appointment for 2 weeks at [phone]. It is also a good idea to know your test results and keep a list of the medicines you take. You can expect your neck to feel stiff or sore after surgery. This should improve in the weeks after surgery. But it may take 4 to 6 months for you to get better completely. You may have trouble sitting or standing in one position for very long and may need pain medicine in the weeks after your surgery. It may take 4 to 6 weeks to get back to your usual activities, but it may depend on what kind of surgery you had. Your throat will feel sore and it may be difficult to swallow for the first 3 days after your surgery. As long as you can get liquids down without difficulty, this should slowly improve, otherwise call our office or seek medical attention if it becomes increasingly difficult to get anything down including liquids. Avoid hot liquids for first 3-5 days. Soothing foods/liquids such as jello, pudding, and luke warm soups are recommended until swallowing improves. Staying elevated will also help, it's advised you keep propped up at while sleeping to help reduce the swelling. You may use an ice pack directly on your incision or around it on the front of your neck, using a cloth to protect your skin; and a heating pad to the back of your neck as needed. Do not use over the counter anti-inflammatory medications (Ibuprofen, Motrin, Aleve, Advil, etc) Taking these meds after having a fusion can delay fusion rates, we recommend you avoid them for the first 3 months after your surgery[address] Dr. Gomez may advise you to work with a physical therapist to strengthen the muscles around your neck and back - this will be discussed at your follow - up appointments. The pain or numbness you were having in your arms before surgery should get better or go away completely. This care sheet gives you a general idea about how long it will take for you to recover. But each person recovers at a different pace. Follow the steps below to get better as quickly as possible. How can you care for yourself at home? Activity ? Rest when you feel tired. Getting enough sleep will help you recover. ? Try to walk each day. Start by walking a little more than you did the day before. Bit by bit, increase the amount you walk. Walking boosts blood flow and helps prevent pneumonia and constipation. Walking may also decrease your muscle soreness after surgery. ? No lifting anything that is more that 5 pounds. This may include heavy grocery bags and milk containers, a heavy briefcase or backpack, cat litter or dog food bags, a child, or a vacuum home restoration service cleaner. ? Avoid strenuous activities, such as bicycle riding, jogging, weightlifting, or aerobic exercise, until your doctor says it is okay. ? Do not drive until your follow-up visit after your surgery, or until your doctor says it isokay. ? Avoid taking long car trips for 2 to 4 weeks after surgery. Your neck may become tired and painful from sitting too long in one position. ? You will probably need to take 4 to 6 weeks off from work. It depends on the type of work you do and how you feel. ? You may have sex as soon as you feel able, but avoid positions that put stress on your neck or cause pain. Diet ? You can eat your normal diet. If your stomach is upset, try bland, low-fat foods like plain rice, broiled chicken, toast, and yogurt ? Drink plenty of fluids. If you have kidney, heart, or liver disease and have to limit fluids, talk with your doctor before you increase the amount of fluids you drink. ? You may notice that your bowel movements are not regular right after your surgery. This is common. Try to avoid constipation and straining with bowel movements. You may want to take a fiber supplement every day. If you have not had a bowel movement after a couple of days, ask your doctor about taking a mild laxative. Medicines ? Take pain medicines exactly as directed. 1. If Dr. Gomez gave you a prescription medicine for pain, take lt as prescribed. 2. Do not take two or more pain medicines at the same time unless the doctor told you to. Many pain medicines have acetaminophen, which is Tylenol. Too much acetaminophen {Tylenol) can be harmful. 3. If you think your pain pill is making you sick to your stomach: 4. Take your pills after meals (unless your doctor has told you not to). 5. Ask your Dr. for a different pain pill. Incisioncare ? Remove your dressing 48hours after your surgery. Ok to shower and get the incision wet. Do not overtly wash your incision. When done, pad dry, leave open to air thereafter. Avoid creams and ointments directly on your incision. ? Your sutures in the incision will dissolve and fall out on their own. ? Keep the area clean and dry. You may cover it with a gauze bandage if it weeps or rubs against clothing; if you choose to do this, change the dressing everyday. Other instructions ? Use a heating pad, hot water bottle, or gentle massage on your back to reduce stiffness. Avoid putting heat on your incision When should you call for help? ? Call 911 anytime you think you may need emergency care. For example, call if: ? You pass out (lose consciousness). ? You have sudden chest pain and shortness of breath, or you cough upblood. ? You cannot swallow. ? You have severe pain in your neck or back. ? Call your Dr. or seek immediate medical care if: ? You have pain that does not get better after you take pain pills. ? You have loose stitches, or your incision comes open. ? You have blood or fluid draining from the incision. ? You have signs of infection, such as: 1. Increased pain, swelling, warmth, or redness. 2. Red streaks leading from the site. 3. Pus draining from the site. 4. Swollen lymph nodes in your neck or armpits. 5. A fever. ? You have severe pain in your arms. ? You have new or increased weakness or numbness in your arms. ? Watch closely for any changes in your health, and be sure to contact your doctor if: ? You do not have a bowel movement after taking a laxative. Discharge Attestations Time Spent in Discharge Care*: less than 30 min Quality Metrics Clinical Quality Measures [ No reported AMI, CVA or VTE this stay] Coding Level of Care Code Acute [facility] note Diagnoses Encounter for postoperative care Z48.89
--- NOTE | 2021-10-18 09:54 | PM.MISC ---
Miscellaneous Note Note: I discharged patient on Augmentin, opioids oxycodone and bowel regimen yadira S Sputum culture showing preliminary report of strep pneumo
== END 2021-10-15 14:20 | disposition home or self-care (01) | DRG 471 ==
LOC: ICU 12:06
PROVIDERS: Internal Medicine; Admitting Provider Orthopaedic Surgery; PCP Nurse Practitioner; Visit Provider Orthopaedic Surgery
PROC: 0RB30ZZ Excision of Cervical Vertebral Disc, Open Approach (ICD-10-PCS; CPT 22551; principal; 2021-10-14 07:00)
DX: M47.12 Other spondylosis with myelopathy, cervical region (principal); J96.91 Respiratory failure, unspecified with hypoxia; J15.4 Pneumonia due to other streptococci; J69.0 Pneumonitis due to inhalation of food and vomit; Z68.41 Body mass index [BMI] 40.0-44.9, adult; E87.4 Mixed disorder of acid-base balance; E11.65 Type 2 diabetes mellitus with hyperglycemia; Z79.51 Long term (current) use of inhaled steroids; Z79.84 Long term (current) use of oral hypoglycemic drugs; E03.9 Hypothyroidism, unspecified; M48.062 Spinal stenosis, lumbar region with neurogenic claudication; E78.2 Mixed hyperlipidemia; Z86.16 Personal history of COVID-19; K52.9 Noninfective gastroenteritis and colitis, unspecified; E66.01 Morbid (severe) obesity due to excess calories
CPT/HCPCS: 36415; 36416; 36600; 51702; 70491; 71045; 71250; 72040; 73110; 73120; 76000; 80048; 80051; 80053; 81001; 82009; 82330; 82803; 82805; 82962; 83605; 84145; 84484; 85025; 85362; 85378; 85384; 85610; 85730; 86140; 87040; 87070; 87077; 87086; 87186; 87205; 87641; 93005; 93306; 94002; 94003; 94640; 94664; 94799; 96372; 97110; 97161; A4570; C1713; C9359; J0330; J1100; J1170; J1650; J1815; J1940; J2250; J2370; J2405; J2543; J2704; J2920; J3010; J3490; J7030; J7050; J7626; J7644; L0174; Q9967

== ENCOUNTER → 2021-10-27 13:34 | Outpatient (BNVA) | payer MEDICAID, SELFPAY | PROVIDERS: PCP Nurse Practitioner; Visit Provider Orthopaedic Surgery | DX: Z47.89 Encounter for other orthopedic aftercare (principal); Z98.890 Other specified postprocedural states; Z98.1 Arthrodesis status | CPT/HCPCS: 99024 ==

== ENCOUNTER → 2021-11-07 08:39 | Outpatient (BNVA) | payer MEDICAID, SELFPAY | PROVIDERS: PCP Nurse Practitioner; Visit Provider Anesthesiology Pain Medicine | DX: M47.22 Other spondylosis with radiculopathy, cervical region (principal); M50.020 Cervical disc disorder with myelopathy, mid-cervical region, unspecified level; M51.16 Intervertebral disc disorders with radiculopathy, lumbar region; M48.062 Spinal stenosis, lumbar region with neurogenic claudication; M51.17 Intervertebral disc disorders with radiculopathy, lumbosacral region; M48.02 Spinal stenosis, cervical region; M51.36 Other intervertebral disc degeneration, lumbar region; M79.604 Pain in right leg; M79.605 Pain in left leg; Z79.891 Long term (current) use of opiate analgesic | CPT/HCPCS: 99214 ==

== ENCOUNTER → 2021-12-06 09:28 | Outpatient (BNVA) | payer MEDICAID, SELFPAY | PROVIDERS: PCP Nurse Practitioner; Visit Provider Nurse Practitioner | DX: E11.9 Type 2 diabetes mellitus without complications (principal); R55 Syncope and collapse; Z79.899 Other long term (current) drug therapy | CPT/HCPCS: 83036; 84443; 85025 ==

== ENCOUNTER → 2021-12-08 11:24 | Outpatient (BNVA) | payer MEDICAID, SELFPAY | PROVIDERS: PCP Nurse Practitioner; Visit Provider Orthopaedic Surgery | DX: Z47.89 Encounter for other orthopedic aftercare (principal); Z98.1 Arthrodesis status; M47.22 Other spondylosis with radiculopathy, cervical region; M51.16 Intervertebral disc disorders with radiculopathy, lumbar region; M48.062 Spinal stenosis, lumbar region with neurogenic claudication; M79.604 Pain in right leg; M79.605 Pain in left leg; Z87.891 Personal history of nicotine dependence; Z79.891 Long term (current) use of opiate analgesic | CPT/HCPCS: 72040; 99024; 99212; 99214 ==

== ENCOUNTER 2021-12-14 13:02 | Outpatient (CLI) | payer MEDICAID, SELFPAY ==
--- NOTE | 2021-12-14 13:00 | USCV_ITS ---
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 RAISER OPERATOR Technologist: NILDA Exam Location: [facility] [place] Indication: SYNCOPE AND COLLAPSE Risk Factors: Previous Vascular Surgery: Right Brachial BP: / Left Brachial BP: / Right Left Velocity (cm/s) Spectral Plaque Velocity (cm/s) Spectral Plaque Syst/Diast Broadening Syst/Diast Broadening 91.50/ 23.20 Prox CCA 100.20/ 24.10 87.00/ 22.50 Mid CCA 82.30 / 19.40 82.30/ 21.00 Distal CCA 77.70 / 26.40 70.40/ 21.00 Prox ICA 48.60 / 19.70 67.90/ 26.50 Mid ICA 55.20 / 22.40 68.50/ 26.50 Distal ICA 62.30 / 26.20 81.50 ECA 86.10 0.75 ICA/CCA 0.62 Vertebral 39.50/ 11.00 cm/s 32.30/ 10.30 cm/s Subclavian 83.50 84.10 FINDINGS Comparison: none available. Minimal bilateral, intimal thickening with no elevation of velocity. No significant elevation of systolic or diastolic velocities. Waveforms are normal. Antegrade vertebral arteries. CONCLUSIONS Bilateral ICA stenosis less than 50%. Minimal atherosclerotic plaque. Dr. Nena Waters DO (Electronically Signed) Final Date: 14 December 2021 14:15 S
== END 2021-12-14 13:03 | disposition home or self-care (01) ==
LOC: RAD 13:04
PROVIDERS: PCP Nurse Practitioner; Visit Provider Nurse Practitioner
DX: R55 Syncope and collapse (principal); I65.23 Occlusion and stenosis of bilateral carotid arteries
CPT/HCPCS: 93880

== ENCOUNTER → 2022-01-12 14:53 | Outpatient (BNVA) | payer MEDICAID, SELFPAY | PROVIDERS: PCP Nurse Practitioner; Visit Provider Orthopaedic Surgery | DX: Z47.89 Encounter for other orthopedic aftercare (principal); Z98.1 Arthrodesis status | CPT/HCPCS: 72040 ==

== ENCOUNTER 2022-04-16 06:00 | Outpatient (RCR) | payer MEDICAID, SELFPAY | END 2022-05-16 23:59 | disposition home or self-care (01) | LOC: WPT 06:00 | PROVIDERS: PCP Nurse Practitioner; Visit Provider Orthopaedic Surgery | DX: M54.2 Cervicalgia (principal); G89.29 Other chronic pain | CPT/HCPCS: 97110; 97112; 97161; 97530 ==

== ENCOUNTER → 2022-04-20 13:32 | Outpatient (BNVA) | payer MEDICAID, SELFPAY | PROVIDERS: PCP Nurse Practitioner; Visit Provider Orthopaedic Surgery | DX: Z98.1 Arthrodesis status (principal) | CPT/HCPCS: 72040 ==

== ENCOUNTER 2022-05-04 12:58 | Outpatient (CLI) | payer MEDICAID, SELFPAY ==
[2022-05-04 14:21] LABS: Estmated Average Glucose 146; Hemoglobin A1C 6.7 % (4.0-6.0)
[2022-05-04 14:38] LABS: Alanine Aminotransferase 29 U/L (0-41); Albumin Level 4.1 g/dL (3.5-5.2); Alkaline Phosphatase 64 U/L (40-130); Blood Urea Nitrogen 9 mg/dL (6-20); Calcium 8.3 mg/dL (8.5-10.5); Carbon Dioxide 26 mmol/L (22-29); Chloride 102 mmol/L (98-107); Chol HDL Ratio 5.84 mg/dL (1.0-5.00); Cholesterol 146 mg/dL (0-200); Free T4 Free Thyroxine 0.91 ng/dL (0.82-1.77); Glomerular Filtration Rate 102.7 mL/min (90-130); Glucose 251 mg/dL (65-115); HDL Cholesterol 25 mg/dL (60-100); LDL Cholesterol Calculated 62 mg/dL (50-129); LDL HDL Ratio 2.48 RATIO (0.00-3.22); Osmolality Calculated 293 mOsm/kg (285-295); Sodium 138 mmol/L (136-145); Thyroid Stimulating Hormone 2.36 uIU/mL (0.27-4.20); Total Bilirubin 0.3 mg/dL (0.15-1.2); Total Protein 7.1 g/dL (6.6-8.7); Triglycerides 294 mg/dL (0-150)
[2022-05-04 14:39] LABS: Anion Gap 14.2 (5-19); Aspartate Amino Transferase 20 U/L (0-40); Potassium 4.2 mmol/L (3.5-5.1)
== END 2022-05-04 12:59 | disposition home or self-care (01) ==
LOC: LAB 13:00
PROVIDERS: PCP Nurse Practitioner; Visit Provider Internal Medicine
DX: E11.9 Type 2 diabetes mellitus without complications (principal); E78.2 Mixed hyperlipidemia
CPT/HCPCS: 36415; 80053; 80061; 83036; 84439; 84443

== ENCOUNTER 2022-05-17 06:00 | Outpatient (RCR) | payer MEDICAID, SELFPAY | END 2022-06-13 23:59 | disposition home or self-care (01) | LOC: WPT 06:00 | PROVIDERS: PCP Nurse Practitioner; Visit Provider Orthopaedic Surgery | DX: M54.2 Cervicalgia (principal); G89.29 Other chronic pain | CPT/HCPCS: 97110; 97112; 97530 ==

== ENCOUNTER → 2022-05-25 15:24 | Outpatient (BNVA) | payer MEDICAID, SELFPAY | PROVIDERS: PCP Nurse Practitioner; Visit Provider Anesthesiology Pain Medicine | DX: M54.16 Radiculopathy, lumbar region (principal); E11.9 Type 2 diabetes mellitus without complications; M48.062 Spinal stenosis, lumbar region with neurogenic claudication | CPT/HCPCS: 36416; 82962 ==

== ENCOUNTER → 2022-06-01 14:13 | Outpatient (BNVA) | payer MEDICAID, SELFPAY | PROVIDERS: PCP Nurse Practitioner; Visit Provider Orthopaedic Surgery | DX: M48.062 Spinal stenosis, lumbar region with neurogenic claudication (principal); Z98.1 Arthrodesis status | CPT/HCPCS: 72040 ==

== ENCOUNTER 2022-07-07 13:12 | Outpatient (CLI) | payer MEDICAID, SELFPAY ==
--- NOTE | 2022-07-07 13:00 | MR_ITS ---
WS: [id number] MRI LUMBAR SPINE NONCONTRAST TECHNIQUE: Sagittal T1, T2 and STIR imaging. Axial T1 and T2 imaging. CLINICAL INFORMATION: pain COMPARISON: MRI lumbar August 22, 2019 FINDINGS: Mild lumbar curve. No acute compression. Disc space narrowing worse L4-L5 and L5-S1 with endplate deg enerative changes L4-L5. Small Tarlov cysts in the sacrum. L1-L2: Moderate facet arthropathy. Spinal canal and foramen are patent. L2-L3: No significant disc bulging. Moderate facet arthropathy. Spinal canal and foramen are patent. L3-L4: Mild annular bulging. Mild central canal stenosis. Slight impingement traversing L4 nerve root s. Moderate facet arthropathy. Mild LEFT and no significant RIGHT foraminal narrowing. L4-L5: Mild annular bulging. Slight narrowing of the subarticular recess bilaterally with impingement traversing L5 nerve roots. This is slightly progressed compared to 2019. Mild facet arthropathy. Mil d bilateral foraminal narrowing. L5-S1: LEFT pericentral protrusion with small annular fissure is new from previous. Slight inferior m igration of disc material. Impingement LEFT S1 nerve root. Correlation LEFT S1 nerve root symptoms. Mild bilateral foraminal narrowing. Mild facet arthropathy. Visualized pelvic bony structures: Normal. Paravertebral soft tissues: Normal. MR/MR lumbar spine wo con* [id number] IMPRESSION: 1. Mild lumbar curve. No acute compression. 2. Central LEFT pericentral disc protrusion L5-S1 with an annular fissure is n ew from previous. This impinges the traversing LEFT S1 nerve root in the subart icular recess.Correlation LEFT S1 nerve root symptoms. Mild bilateral L5-S1 for aminal narrowing. 3. Mild central canal stenosis L3-L4 due to mild annular bulging with facet ar thropathy. 4. Annular bulging L4-L5 with slight impingement on the RIGHT greater than LEF T traversing L5 nerve roots in the subarticular recess appears slightly progres sed compared to previous. Mild LEFT L4-L5 foraminal narrowing.
== END 2022-07-07 13:13 | disposition home or self-care (01) ==
PROVIDERS: PCP Nurse Practitioner; Visit Provider Orthopaedic Surgery
DX: M51.27 Other intervertebral disc displacement, lumbosacral region (principal); M48.061 Spinal stenosis, lumbar region without neurogenic claudication; M51.26 Other intervertebral disc displacement, lumbar region
CPT/HCPCS: 72148

== ENCOUNTER → 2022-08-02 10:34 | Outpatient (BNVA) | payer MEDICAID, SELFPAY | PROVIDERS: PCP Nurse Practitioner; Visit Provider Internal Medicine | DX: E03.8 Other specified hypothyroidism (principal); E11.9 Type 2 diabetes mellitus without complications; E78.2 Mixed hyperlipidemia | CPT/HCPCS: 80053; 80061; 82043; 83036; 84439; 84443 ==

== ENCOUNTER 2022-08-17 08:44 | Outpatient (CLI) | payer MEDICAID, SELFPAY ==
--- NOTE | 2022-08-17 10:00 | FL_ITS ---
WS: [id number] FL barium swallow modifd [id number] REASON FOR EXAM: R13.10 - Dysphagia, unspecified FLUOROSCOPY TIME: 2min [id number] # OF SPOT FILMS: None FINDINGS: Procedure was supervised by the speech therapy department. Patient was examined in the sitting upright position, lateral projection. The swallowing of varying consistencies of barium was monitored fluoroscopically and video recorded. Detailed analysis and report of the swallowing will be rendered by the speech therapy department. FL/FL barium swallow modifd [id number] IMPRESSION: Modified barium swallow as above.
== END 2022-08-17 08:45 | disposition home or self-care (01) ==
LOC: RAD 08:47
PROVIDERS: PCP Nurse Practitioner; Visit Provider Nurse Practitioner
DX: R13.10 Dysphagia, unspecified (principal)
CPT/HCPCS: 74230; 92611

== ENCOUNTER → 2022-08-22 08:56 | Outpatient (BNVA) | payer MEDICAID, SELFPAY | PROVIDERS: PCP Nurse Practitioner; Visit Provider Orthopaedic Surgery | DX: Z01.818 Encounter for other preprocedural examination (principal); M48.062 Spinal stenosis, lumbar region with neurogenic claudication | CPT/HCPCS: 36415; 72110; 80048; 85025 ==

== ENCOUNTER 2022-08-28 20:27 | Emergency (ER) | payer MEDICAID, SELFPAY ==
[2022-08-28 20:42] VITALS: BP 158/102; PULSE 88; RESP 20; TEMP 36.8; O2SAT 97; BMI 41.8
--- NOTE | 2022-08-28 21:03 | CTR_ITS ---
PROCEDURE INFORMATION: Exam: CT Head Without Contrast Exam date and time: 08/28/2022 9:46 PM Age: 52 years old Clinical indication: Injury or trauma; Fall; Blunt trauma (contusions or hematomas); Patient HX: Fell at home and struck head on the floor. Now states cannot use RT leg. ; Additional info: Fall, head injury TECHNIQUE: Imaging protocol: Computed tomography of the head without contrast. Radiation optimization: All CT scans at this facility use at least one of these dose optimization techniques: automated exposure control; mA and/or kV adjustment per patient size (includes targeted exams where dose is matched to clinical indication); or iterative reconstruction. REPORTING DATA: Count of CT and Cardiac NM exams in prior 12 months: This patient has received 2 known CTs and 0 known cardiac nuclear medicine studies in the 12 months prior to the current study. COMPARISON: CT neck w con* [id number] 10/14/2021 10:04 PM RADIATION DOSE METRICS: Total DLP (mGy-cm): 1079.78 FINDINGS: Brain: Normal. No hemorrhage. Unremarkable white matter. No mass effect. Cerebral ventricles: No ventriculomegaly. Paranasal sinuses: Opacified left frontal, ethmoid, and left sphenoid sinuses. Mucosal thickening of the maxillary sinuses. Mastoid air cells: Visualized mastoid air cells are well aerated. Bones/joints: Unremarkable. No acute fracture. Soft tissues: Unremarkable. CT/CT head wo con* [id number] IMPRESSION: No acute intracranial abnormality.
--- NOTE | 2022-08-28 22:26 | W.ED.HEATRA ---
HPI - Head Injury General: Chief complaint: Head Injury Stated complaint: Fall Time Seen by Provider: 08/28/22 22:14 History of Present Illness: 52-year-old male patient comes in today for complaints of neck and upper back pain. Patient also has a severe headache. It was reported the patient took 2 falls today both times hitting his head. Patient is tearful due to pain in his head. Patient is alert and oriented. Patient is light sensitive. Patient appears in moderate to severe pain. Patient has a history of intervertebral disc disease with cervical fusion. Patient also has a history of lung disease and borderline diabetes. Associated symptoms: Reports neck pain; Deny nausea or vomiting Review of Systems General: Reports: 10 or more systems reviewed and unremarkable except in HPI and below Const: Denies: fever(s) Card: Denies: chest pain Resp: Denies: dyspnea GI: Denies: nausea or vomiting : Denies: difficulty urinating Musc: Reports: neck pain and back pain Skin/Breast: Denies: rash Neuro: Reports: headache(s) PFSH ED PFSH: Medical History Bacterial lower respiratory infection Cervical disc disorder with myelopathy of mid-cervical region Diabetes mellitus, type II Displacement of lumbar disc with radiculopathy Elevated WBC count Hypothyroidism 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 Lumbar stenosis with neurogenic claudication Medical marijuana use Medication management Mixed hyperlipidemia Mixed hyperlipidemia Pain management contract signed [id number] condition Shortness of breath Vitamin D deficiency Surgical History No pertinent past surgical history Family History Father CAD (coronary artery disease) Age 66 Mother CAD (coronary artery disease) Social History Smoking and tobacco status: never smoked Quit status (tobacco): has quit using tobacco Year quit tobacco: 1996 Former quit date comment: 1 pack per day x 5 years Second hand smoke exposure: No Alcohol intake: former Last alcohol use date: 04/16/03 Substance/Drug Use: current Substance/Drug use frequency: daily Household members: spouse and children Marital status: Number of children: 4 Current occupational status: unemployed Pets and animals: Yes Pets & animals: dog(s) Physical Exam Const: COMMON NORMALS: alert HENMT: COMMON NORMALS: atraumatic HEAD & SCALP: atraumatic Neck/C-Spine: CERVICAL SPINE: Yes Cervical spine tenderness and Yes Paracervical muscle tenderness Chest: COMMONS NORMALS: normal palpation of entire chest wall Resp: COMMON NORMALS: normal respiratory effort Cardio: COMMON NORMALS: regular rate RATE: regular rate Back/Pelvis: THORACIC SPINE/UPPER BACK: Yes thoracic spinal tenderness and Yes paraspinal muscle tenderness LUMBAR SPINE/LOWER BACK: No lumbar spinal tenderness and Yes paraspinal muscle tenderness Extremity: COMMON NORMALS: normal to inspection Neuro: SENSORIUM/ORIENTATION: Yes alert Skin: COMMON NORMALS: turgor normal GENERAL SKIN EXAM: turgor normal Course Vital Signs: Vital signs: Vital Signs Temperature 98.3 F 08/28/22 20:42 Pulse Rate 88 08/28/22 20:42 Respiratory Rate 16 08/28/22 23:23 Blood Pressure 158/102 08/28/22 20:42 Pulse Oximetry 97 08/28/22 20:42 Oxygen Delivery Me thod Room Air 08/28/22 20:42 MDM - Head Injury Medcial Decision Making 52-year-old male patient comes in today for complaints of injuries to the back in the fall. On exam patient has muscle tenderness of the cervical and thoracic spine. Patient also reports some point tenderness between his shoulder blades. Patient moves all extremities well. Pupils are equal and reactive. Patient is sensitive to light. Bilateral TMs are clear. No visible injuries noted to the scalp. Differential diagnosis includes fracture, intracranial bleeding, contusion, strain. CT of the head noted no fractures or intracranial bleeding. Cervical spine x-ray and thoracic x-ray showed no obvious fractures. CBC and CMP was unremarkable. EKG showed sinus rhythm with a regular rate at 79 bpm. Patient was treated for migraine with Toradol, dexamethasone, Reglan, and diphenhydramine with relief of headache. Patient was given 4 mg of morphine IV for his back pain with significant pain relief. Patient will be continued with some hydrocodone at home for further pain relief in order to stay active. Patient should follow-up with Dr. Gomez his specialist for his spine tomorrow regarding recommendations of other treatment options. Patient stated understanding and agreed to plan. Lab Data 08/28/22 23:29 08/28/22 23:[address] 08/28/22 21:03 IMPRESSION: No acute intracranial abnormality. Cervical Spine X-Ray 08/28/22 22:30 IMPRESSION: 1. Negative for fracture or dislocation. 2. C5/6/7 anterior cervical discectomy and fusion changes in place with intervertebral disc spacers, similar to prior exam. Thoracic Spine X-Ray 08/28/22 22:30 IMPRESSION: No acute findings. Laboratory Results WBC 12.8 10^3/uL (4.0-10.0) H 08/28/22 23: RBC 5.79 10^6/uL (4.1-5.3) H 08/28/22: Hgb 16.7 g/dL (11.7-16.6) H 08/28/22: Hct 49.8 % (42.0-52.0) 08/28/22: MCV 86.0 fl (80-94) 08/28/22: MCH 28.8 pg (28.0-34.0) 08/28/22: MCHC 33.5 g/dL (30.0-36.0) 08/28/22: RDW 13.0 % (12.1-15.1) 08/28/22: Plt Count 275 10^3/cmm (130-400) 08/28/22: MPV 10.0 fL (7.4-10.4) 08/28/22: Neut % (Auto) 62.8 % 08/28/22: Lymph % (Auto) 27.2 % 08/28/22: [place] % (Auto) 6.9 % 08/28/22: Eos % (Auto) 2.1 % 08/28/22: Baso % (Auto) 0.5 % 08/28/22: Neut # (Auto) 8.04 10^3/uL (1.8-7.7) H 08/28/22: Lymph # (Auto) 3.5 10^3/uL (0.8-4.8) 08/28/22: [place] # (Auto) 0.9 10^3/uL (0.2-0.9) 08/28/22 23:29 Eos # (Auto) 0.3 10^3/uL (0.0-0.8) 08/28/22 23: Baso # (Auto) 0.1 10^3/uL (0.0-0.1) 08/28/22 23: Nucleated RBC % (auto) 0 % 08/28/22 23: Nucleated RBCs # 0.0 /100WBC 08/28/22 23: Sodium 135 mmol/L (136-145) L 08/28/22: Potassium 3.6 mmol/L (3.5-5.1) 08/28/22: Chloride 99 mmol/L (98-107) 08/28/22: Carbon Dioxide 21 mmol/L (22-29) L 08/28/22: Anion Gap 18.6 (5-19) 08/28/22: BUN 10 mg/dL (6-20) 08/28/22: Creatinine 0.8 mg/dL (0.7-1.2) 08/28/22: GFR Calculation 102.3 mL/min (90-130) 08/28/22: Glucose 151 mg/dL (65-115) H 08/28/22: Calculated Osmolality 282 mOsm/kg (285-295) L 08/28/22: Calcium 9.2 mg/dL (8.5-10.5) 08/28/22: Total Bilirubin 0.7 mg/dL (0.15-1.2) 08/28/22 23: AST 21 U/L (0-40) 08/28/22: ALT 25 U/L (0-41) 08/28/22 23: Alkaline Phosphatase 70 U/L (40-130) 08/28/22 23: Total Protein 7.9 g/dL (6.6-8.7) 08/28/22: Albumin 4.3 g/dL (3.5-5.2) 08/28/22: Globulin 3.6 g/dL (1.3-4.6) 08/28/22:29 EKG Data EKG 1: EKG interpretation date: 08/28/22 EKG interpretation time: 23:30 Prior EKG tracings: not available for review Interpretation: EKG shows a sinus rhythm with a regular rate at [address] elevation or ectopy is noted. Discharge Plan Discharge Patient Disposition: Home Clinical Impression: Fall Qualifiers: Encounter type: initial encounter Qualified Code(s): W19.XXXA - Unspecified fall, initial encounter Head injury Qualifiers: Encounter type: initial encounter Qualified Code(s): S09.90XA - Unspecified injury of head, initial encounter Back pain Qualifiers: Back pain location: thoracic back pain Chronicity: acute Back pain laterality: bilateral Qualified Code(s): M54.6 - Pain in thoracic spine Condition: Stable Prescriptions: New hydrocodone-acetaminophen 5-325 mg tablet 1 tab PO Q6H PRN (Reason: pain (scale score 7-10)) Qty: 12 0RF No Action MEDICAL MARIJUANA 1 puff as directed PRN PRN (Reason: Pain) sodium chloride 0.9 % Solution 5 ml epidural ONCE Qty: 1 0RF bupivacaine (PF) 0.25 % (2.5 mg/mL) solution 2 ml Infiltration ONCE Qty: 1 0RF Rx Instructions: q 3 to 6 months dexamethasone sodium phos (PF) 10 mg/mL solution 8 mg Infiltration ONCE Qty: 0.8 0RF topiramate 50 mg tablet 50 mg PO BID Qty: 60 2RF cyclobenzaprine 10 mg tablet 10 mg PO TID PRN (Reason: muscle spasm) Qty: 30 2RF budesonide-formoterol [Symbicort] 160-4.5 mcg/actuation HFA aerosol inhaler See Rx Instructions .ROUTE .COMPLEX Qty: 10.2 0RF Dose Instruction: INHALE 2 PUFFS BY MOUTH TWICE DAILY Rx Instructions: INHALE 2 PUFFS BY MOUTH TWICE DAILY albuterol sulfate [ProAir HFA] 90 mcg/actuation HFA aerosol inhaler 1 inh inhalation Q6H PRN (Reason: shortness of breath or wheezing) 30 Days Qty: 8.5 2RF (DME) blood-glucose meter [Accu-Chek Ashley Plus Meter] Misc See Rx Instructions .Route Qty: 1 0RF Rx Instructions: As directed celecoxib 200 mg capsule See Rx Instructions .ROUTE .COMPLEX Qty: 60 0RF Dose Instruction: TAKE 1 CAPSULE BY MOUTH TWICE DAILY FOR PAIN Rx Instructions: TAKE 1 CAPSULE BY MOUTH TWICE DAILY FOR PAIN (DME) OneTouch Ultra Test Strip See Rx Instructions .ROUTE .COMPLEX Qty: 100 0RF Dose Instruction: USE TO TEST DAILY Rx Instructions: USE TO TEST DAILY Senna-S 8.6-50 mg tablet 1 tab-cap PO BID Qty: 30 0RF Discharge Orders: Discharge ED (Routine); Ordered 08/29/22 Ordered By: Sebastián Jimenes Referrals: Lucinda Boateng FNP [Primary Care Provider] - Discharge Diet: Usual diet Discharge Activity: Increase activity as tolerated Patient Instructions: Opioid Safety, Pain Management Activity Restrictions/Additional Instructions: Home and rest. Activity as tolerated. Take medications as directed. Follow-up with primary care for further instructions. Return to ED for new concerns. Coding Level of Care Code ED Hand Ornament Maker for Jeromy Morataya
--- NOTE | 2022-08-28 22:30 | XRR_ITS ---
PROCEDURE INFORMATION: Exam: XR Thoracic Spine Exam date and time: 08/28/2022 10:45 PM Age: 52 years old Clinical indication: Injury or trauma; Fall; Blunt trauma (contusions or hematomas); Additional info: Fall injury TECHNIQUE: Imaging protocol: Radiologic exam of the thoracic spine. Views: 3 views. COMPARISON: CR (NECK, ) 08/28/2022 10:38 PM FINDINGS: Bones/joints: Normal. No acute fracture. Normal alignment. Soft tissues: Unremarkable. XR/XR thoracic spine 3V* [id number] IMPRESSION: No acute findings.
--- NOTE | 2022-08-28 22:30 | XRR_ITS ---
PROCEDURE INFORMATION: Exam: XR Cervical Spine Exam date and time: 08/28/2022 10:38 PM Age: 52 years old Clinical indication: Injury or trauma; Fall; Concussion/head injury; Prior surgery; Surgery date: 6+ months; Surgery type: C. Spine; Additional info: Fall injury TECHNIQUE: Imaging protocol: Radiologic exam of the cervical spine. Views: 2 or 3 views. COMPARISON: CR XR cervical spine 3V* [id number] 06/01/2022 2:13 PM FINDINGS: Bones/joints: C5/6/7 anterior cervical discectomy and fusion changes in place with intervertebral disc spacers, similar to prior exam. Soft tissues: Unremarkable. XR/XR cervical spine 3V* [id number] IMPRESSION: 1. Negative for fracture or dislocation. 2. C5/6/7 anterior cervical discectomy and fusion changes in place with intervertebral disc spacers, similar to prior exam.
[2022-08-28] MEDS: metoclopramide 5 mg/mL SDV 2 mL 10 MG IVP (23:15)
[2022-08-28] MEDS: ketorolac 30 mg/mL INJ IVP (23:16)
[2022-08-28] MEDS: diphenhydrAMINE 50 mg/mL SDV 1mL 12.5 MG IVP (23:21)
[2022-08-28 23:23] VITALS: RESP 16
[2022-08-28] MEDS: dexamethasone 10 mg/mL INJ IVP (23:23)
[2022-08-28] MEDS: morphine 4 mg/mL SDV 1 mL IVP (23:23)
--- NOTE | 2022-08-28 23:36 | ECG_ITS ---
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 Measurements Intervals [place] Rate: 79 P: 48 [place]: 163 QRS: -5 QRSD: 92 T: 26 QT: 369 QTc: 424 Interpretive Statements SINUS RHYTHM LOW QRS VOLTAGE IN PRECORDIAL LEADS [QRS DEFLECTION < 1.0 mV IN CHEST LEADS] MINIMAL ST DEPRESSION [0.025+ mV ST DEPRESSION] Compared to ECG 10/14/2021 17:22:06 ST (T wave) deviation now present Myocardial infarct finding no longer present Electronically Signed On 08-29-2022 0:22:06 CDT by Kevin Doran M.D. [id number]
[2022-08-28 23:40] LABS: Basophils # 0.1 10^3/uL (0.0-0.1); Basophils % 0.5 %; Eosinophils # 0.3 10^3/uL (0.0-0.8); Eosinophils % 2.1 %; Hematocrit 49.8 % (42.0-52.0); Hemoglobin 16.7 g/dL (11.7-16.6); Lymphocytes # 3.5 10^3/uL (0.8-4.8); Lymphocytes % 27.2 %; Mean Corpuscular HGB Conc 33.5 g/dL (30.0-36.0); Mean Corpuscular Hemoglobin 28.8 pg (28.0-34.0); Monocytes # 0.9 10^3/uL (0.2-0.9); Monocytes % 6.9 %; Neutrophils # 8.04 10^3/uL (1.8-7.7); Neutrophils % 62.8 %; Nucleated Red Blood Cells % 0 %; Platelet Count 275 10^3/cmm (130-400); Red Blood Count 5.79 10^6/uL (4.1-5.3); White Blood Count 12.8 10^3/uL (4.0-10.0)
[2022-08-28 23:58] LABS: Alanine Aminotransferase 25 U/L (0-41); Albumin Level 4.3 g/dL (3.5-5.2); Alkaline Phosphatase 70 U/L (40-130); Aspartate Amino Transferase 21 U/L (0-40); Blood Urea Nitrogen 10 mg/dL (6-20); Calcium 9.2 mg/dL (8.5-10.5); Carbon Dioxide 21 mmol/L (22-29); Chloride 99 mmol/L (98-107); Globulin 3.6 g/dL (1.3-4.6); Glomerular Filtration Rate 102.3 mL/min (90-130); Glucose 151 mg/dL (65-115); Osmolality Calculated 282 mOsm/kg (285-295); Sodium 135 mmol/L (136-145); Total Bilirubin 0.7 mg/dL (0.15-1.2); Total Protein 7.9 g/dL (6.6-8.7)
[2022-08-29] LABS: Anion Gap 18.6 (5-19); Potassium 3.6 mmol/L (3.5-5.1)
[2022-08-29] MEDS: HYDROcodone-acetaminophen 5-325 mg Tablet 2 TAB PO (00:44)
[2022-08-29 00:52] VITALS: BP 158/115; RESP 16; O2SAT 94
== END 2022-08-29 00:53 | disposition home or self-care (01) ==
PROVIDERS: Emergency Provider Nurse Practitioner Family; PCP Nurse Practitioner
DX: M54.6 Pain in thoracic spine (principal); S09.90XA Unspecified injury of head, initial encounter; Z87.891 Personal history of nicotine dependence; E11.9 Type 2 diabetes mellitus without complications; E78.2 Mixed hyperlipidemia; W19.XXXA Unspecified fall, initial encounter
CPT/HCPCS: 70450; 72040; 72072; 80053; 85025; 93005; 96374; 96375; 99285; J1100; J1200; J1885; J2270; J2765

== ENCOUNTER 2022-09-01 13:56 | Outpatient (CLI) | payer MEDICAID, SELFPAY ==
--- NOTE | 2022-09-01 14:00 | CTR_ITS ---
PROCEDURE INFORMATION: Exam: CT Cervical Spine Without Contrast Exam date and time: 09/01/2022 2:15 PM Age: 52 years old Clinical indication: Pain and injury or trauma; Fall; Blunt trauma; Radicular pain (radiculopathy); Cervical region; Prior surgery; Surgery date: 6+ months; Surgery type: Cervical fusion 1 year ago; Additional info: Head injury due to fall. Fall on 08/28/22. Neck pain radiating down arms. PT states since his surgery he has had syncope which is causing the falls. TECHNIQUE: Imaging protocol: Computed tomography of the cervical spine without contrast. Radiation optimization: All CT scans at this facility use at least one of these dose optimization techniques: automated exposure control; mA and/or kV adjustment per patient size (includes targeted exams where dose is matched to clinical indication); or iterative reconstruction. REPORTING DATA: Count of CT and Cardiac NM exams in prior 12 months: This patient has received 3 known CTs and 0 known cardiac nuclear medicine studies in the 12 months prior to the current study. COMPARISON: CT cervical spine w con [id number] 11/26/2019 10:29 AM RADIATION DOSE METRICS: Total DLP (mGy-cm): 262.97 FINDINGS: Bones/joints: There is no fracture. Vertebral bodies maintain their height. Is no fracture of the posterior elements. There is anterior fusion from C5-C7 with metal plate screws and disc spacers. Hardware appears intact. No surrounding lucency to indicate loosening. There is osseous fusion across these levels without evidence of pseudoarthrosis. There is mild bony ridging at C5-C6 with minimal central stenosis. At C6-C7 there is left paracentral osteophyte resulting in left lateral recess stenosis and mild left foraminal stenosis. There is minimal right foraminal stenosis at C5-C6. There is otherwise no evidence of central or foraminal stenosis. Lungs: Lung apices are normal. Soft tissues: Unremarkable. CT/CT cervical spin wo con* [id number] IMPRESSION: 1. No evidence of a fracture of the cervical spine. 2. C5-C7 anterior fusion with no evidence of pseudoarthrosis.
== END 2022-09-01 13:57 | disposition home or self-care (01) ==
LOC: RAD 13:58
PROVIDERS: PCP Nurse Practitioner; Visit Provider Orthopaedic Surgery
DX: S09.90XA Unspecified injury of head, initial encounter (principal); W19.XXXA Unspecified fall, initial encounter; M50.020 Cervical disc disorder with myelopathy, mid-cervical region, unspecified level; R55 Syncope and collapse; Z98.1 Arthrodesis status; M54.12 Radiculopathy, cervical region
CPT/HCPCS: 72125

== ENCOUNTER 2022-10-05 10:14 | Outpatient (CLI) | payer MEDICAID, SELFPAY ==
--- NOTE | 2022-10-05 10:15 | USCV_ITS ---
Tremayne Soto Age: 52 Gender: M : 1970 Exam Date: 10/05/2022 10:46 Ordering Phys: Demetrio Ornelas MD Technologist: HANNAH [place] [facility] [place]: SYNCOPE Risk Factors: Previous Vascular Surgery: Right Brachial BP: / Left Brachial BP: / Right Left Velocity (cm/s) Spectral Plaque Velocity (cm/s) Spectral Plaque Syst/Diast Broadening Syst/Diast Broadening 85.30/ 21.60 Prox CCA 94.80 / 17.60 88.20/ 22.50 Mid CCA 98.10 / 27.60 63.80/ 17.80 Distal CCA 74.60 / 23.30 38.90/ 13.90 Prox ICA 47.10 / 20.70 58.80/ 22.50 Mid ICA 65.60 / 27.80 70.00/ 25.80 Distal ICA 63.50 / 24.20 82.50 ECA 87.00 0.79 ICA/CCA 0.67 Antegrade Vertebral Antegrade 33.40/ 10.10 cm/s 34.20/ 10.70 cm/s Tri Subclavian Tri 155.1 112.4 0 0 FINDINGS comp 12/14/21 No change since 12/14/21 CONCLUSIONS Mild intimal thickening bilateral CCA's Right ICA stenosis <50%. Left ICA stenosis <50%. Normal antegrade Doppler flow noted in the right vertebral artery. Normal antegrade Doppler flow noted in the left vertebral artery. Daniel Hernández MD (Electronically Signed) Final Date: 05 October 2022 11:11 S
--- NOTE | 2022-10-05 11:00 | MR_ITS ---
WS: [id number] MRI BRAIN WITHOUT CONTRAST HISTORY: R55 - Syncope and collapse COMPARISON: CT head 08/28/2022 TECHNIQUE: Diffusion imaging, multiplanar T1, T2 and FLAIR imaging obtained. Patient declined IV cont rast. No evidence for acute infarct or hemorrhage. Noble-white matter differentiation is normal. No remote or acute infarcts are volume loss. Ventricles and extra-axial spaces are normal. No inferior displacement of cerebellar tonsils. The sella turcica and pituitary gland are unremarkabl e. Dural venous sinuses and [place] of [place] demonstrate no abnormality on this unenhanced studies. Paranasal sinuses: Moderate mucoperiosteal thickening throughout the paranasal sinuses. Most signific antly involving the anterior posterior ethmoid air cells with extension into the LEFT frontal ethmoid recess. No air-fluid levels. No bone expansion. Mastoid air cells: Normal. Calvarium and scalp: Intact. MR/MR head wo con* [id number] IMPRESSION: 1. No acute infarct and no signal abnormality. 2. Normal ventricular system. 3. No prior infarct or volume loss. 4. Moderate mucoperiosteal thickening throughout the sinus cavities. Most sign ificantly involving the ethmoid air cells.
== END 2022-10-05 10:15 | disposition home or self-care (01) ==
LOC: RAD 10:14
PROVIDERS: PCP Nurse Practitioner; Visit Provider Psychiatry & Neurology Neurology
DX: R55 Syncope and collapse (principal); Z91.89 Other specified personal risk factors, not elsewhere classified; I65.23 Occlusion and stenosis of bilateral carotid arteries
CPT/HCPCS: 70551; 93880

== ENCOUNTER → 2022-12-06 14:15 | Outpatient (BNVA) | payer MEDICAID, SELFPAY | PROVIDERS: PCP Nurse Practitioner; Visit Provider Psychiatry & Neurology Neurology | DX: E55.9 Vitamin D deficiency, unspecified (principal); R55 Syncope and collapse; Z91.89 Other specified personal risk factors, not elsewhere classified; R56.9 Unspecified convulsions; G62.9 Polyneuropathy, unspecified; M47.22 Other spondylosis with radiculopathy, cervical region; M48.062 Spinal stenosis, lumbar region with neurogenic claudication | CPT/HCPCS: 36415; 80164; 82306; 82607; 82746; 83735; 83921; 84155; 84165; 84207; 84591; 86334; 86617; 86780 ==

== ENCOUNTER → 2022-12-28 15:06 | Outpatient (BNVA) | payer MEDICAID, SELFPAY | PROVIDERS: PCP Nurse Practitioner; Visit Provider Nurse Practitioner | DX: R25.2 Cramp and spasm (principal); R55 Syncope and collapse | CPT/HCPCS: 80053 ==

== ENCOUNTER 2023-01-11 12:08 | Outpatient (CLI) | payer MEDICAID, SELFPAY ==
[2023-01-11 13:00] LABS: Valproic Acid Level < 2.8 ug/mL (50-100)
== END 2023-01-11 12:09 | disposition home or self-care (01) ==
PROVIDERS: PCP Nurse Practitioner; Visit Provider Psychiatry & Neurology Neurology
DX: R55 Syncope and collapse (principal); R56.9 Unspecified convulsions
CPT/HCPCS: 36415; 80164

== ENCOUNTER 2023-02-21 14:41 | Outpatient (CLI) | payer MEDICAID, SELFPAY ==
[2023-02-21 15:57] LABS: Estmated Average Glucose 140; Hemoglobin A1C 6.5 % (4.0-6.0)
[2023-02-21 16:03] LABS: Valproic Acid Level 9.8 ug/mL (50-100)
[2023-02-21 16:08] LABS: Alanine Aminotransferase 37 U/L (0-41); Albumin Level 4.3 g/dL (3.5-5.2); Alkaline Phosphatase 72 U/L (40-130); Anion Gap 15.9 (5-19); Aspartate Amino Transferase 23 U/L (0-40); Blood Urea Nitrogen 9 mg/dL (6-20); Calcium 9.3 mg/dL (8.5-10.5); Carbon Dioxide 23 mmol/L (22-29); Chloride 101 mmol/L (98-107); Chol HDL Ratio 6.14 mg/dL (1.0-5.00); Cholesterol 172 mg/dL (0-200); Free T4 Free Thyroxine 0.97 ng/dL (0.82-1.77); Globulin 3.5 g/dL (1.3-4.6); Glomerular Filtration Rate 102.3 mL/min (90-130); Glucose 111 mg/dL (65-115); HDL Cholesterol 28 mg/dL (60-100); LDL Cholesterol Calculated 78 mg/dL (50-129); LDL HDL Ratio 2.79 RATIO (0.00-3.22); Osmolality Calculated 281 mOsm/kg (285-295); Potassium 3.9 mmol/L (3.5-5.1); Sodium 136 mmol/L (136-145); Thyroid Stimulating Hormone 7.47 uIU/mL (0.27-4.20); Total Bilirubin 0.5 mg/dL (0.15-1.2); Total Protein 7.8 g/dL (6.6-8.7); Triglycerides 331 mg/dL (0-150)
[2023-02-21 18:24] LABS: 25 Hydroxy Vitamin D 33 ng/mL (30-100)
== END 2023-02-21 14:42 | disposition home or self-care (01) ==
PROVIDERS: Psychiatry & Neurology Neurology; PCP Nurse Practitioner; Visit Provider Internal Medicine
DX: R25.2 Cramp and spasm (principal); R55 Syncope and collapse; E03.8 Other specified hypothyroidism; E11.9 Type 2 diabetes mellitus without complications; E78.2 Mixed hyperlipidemia
CPT/HCPCS: 36415; 80053; 80061; 80164; 82306; 83036; 84439; 84443

== ENCOUNTER 2023-02-22 10:45 | Outpatient (CLI) | payer MEDICAID, SELFPAY ==
[2023-02-22 11:19] LABS: Creatinine Urine, Random 155 mg/dL (39-259); Microalbum Creatinine Ratio Ur 6 mg/dL (0-20); Microalbumin Random Urine 1 ug/dL (0-20)
== END 2023-02-22 10:46 | disposition home or self-care (01) ==
LOC: LAB 10:46
PROVIDERS: Internal Medicine; PCP Nurse Practitioner; Visit Provider Psychiatry & Neurology Neurology
DX: E03.8 Other specified hypothyroidism (principal); E11.9 Type 2 diabetes mellitus without complications; E78.2 Mixed hyperlipidemia
CPT/HCPCS: 82044

== ENCOUNTER → 2023-03-06 15:17 | Outpatient (BNVA) | payer MEDICAID, SELFPAY | PROVIDERS: PCP Nurse Practitioner; Visit Provider Physician Assistant | DX: M48.062 Spinal stenosis, lumbar region with neurogenic claudication (principal); M51.37 Other intervertebral disc degeneration, lumbosacral region; M47.26 Other spondylosis with radiculopathy, lumbar region | CPT/HCPCS: 72100 ==

== ENCOUNTER 2023-03-23 12:43 | Outpatient (CLI) | payer MEDICAID, SELFPAY ==
[2023-03-23 13:01] LABS: Add Urine Microscopic? NO; Charge for UA Resulting for Rev
[2023-03-23 13:05] LABS: Basophils # 0.1 10^3/uL (0.0-0.1); Basophils % 0.6 %; Eosinophils # 0.4 10^3/uL (0.0-0.8); Eosinophils % 4.4 %; Hematocrit 49.9 % (37-53); Lymphocytes # 3.7 10^3/uL (0.8-4.8); Lymphocytes % 37.4 %; Mean Corpuscular HGB Conc 32.9 g/dL (30-55); Mean Corpuscular Hemoglobin 29.5 pg (27-33); Mean Corpuscular Volume 89.7 fl (82-101); Mean Platelet Volume 9.6 fL (7.4-10.4); Monocytes # 0.7 10^3/uL (0.2-0.9); Monocytes % 7.1 %; Neutrophils # 4.93 10^3/uL (1.8-7.7); Nucleated Red Blood Cells % 0 %; Platelet Count 257 10^3/cmm (157-399); Red Blood Count 5.56 10^6/uL (3.85-5.65); Red Cell Distribution Width 12.9 % (12.1-15.1); White Blood Count 9.86 10^3/uL (3.29-11.43)
[2023-03-23 13:10] LABS: Bilirubin Urine Neg (Negative); Blood Urine Neg (Negative); Glucose Urine UA Norm (Normal); Ketones Urine Negative (Negative); Leukocyte Esterase Urine Negative (Negative); Nitrate Urine Negative (Negative); Protein Urine Neg (Negative); Urine Appearance Clear (CLEAR); Urine Color Yellow (Yellow); Urobilinogen Urine Norm (Negative); pH Urine 5 (5-7)
[2023-03-23 13:20] LABS: Estmated Average Glucose 143; Hemoglobin A1C 6.6 % (4.0-6.0)
[2023-03-23 13:21] LABS: Alanine Aminotransferase 38 U/L (0-41); Albumin Level 4.2 g/dL (3.5-5.2); Alkaline Phosphatase 68 U/L (40-130); Anion Gap 15.3 (5-19); Aspartate Amino Transferase 24 U/L (0-40); Blood Urea Nitrogen 11 mg/dL (6-20); Calcium 8.9 mg/dL (8.5-10.5); Carbon Dioxide 26 mmol/L (22-29); Chloride 102 mmol/L (98-107); Globulin 3.3 g/dL (1.3-4.6); Glomerular Filtration Rate 89.3 mL/min (90-130); Glucose 98 mg/dL (65-115); Osmolality Calculated 287 mOsm/kg (285-295); Potassium 4.3 mmol/L (3.5-5.1); Sodium 139 mmol/L (136-145); Total Bilirubin 0.4 mg/dL (0.15-1.2); Total Protein 7.5 g/dL (6.6-8.7)
== END 2023-03-23 12:44 | disposition home or self-care (01) ==
LOC: LAB 12:46
PROVIDERS: PCP Nurse Practitioner; Visit Provider Orthopaedic Surgery
DX: Z01.818 Encounter for other preprocedural examination (principal); E11.9 Type 2 diabetes mellitus without complications; Z79.899 Other long term (current) drug therapy
CPT/HCPCS: 36415; 80053; 81003; 83036; 85025

== ENCOUNTER 2023-04-02 10:37 | Inpatient (IN) | payer MEDICAID, SELFPAY ==
[2023-04-02] VITALS (17 sets, daily range): BP systolic 118–167; BP diastolic 63–112; PULSE 85–117; RESP 16–18; TEMP 36.1–37.1; O2SAT 91–99; BMI 42.4
--- NOTE | 2023-04-02 | XR_ITS ---
WS: [id number] Lumbar spine, C-arm fluoroscopy views, 04/02/2023 Clinical Data: L4-5, L5-S1 plif Comparison: Lumbar spine, 03/06/2023 Findings: Dr. Gomez performed a posterior lumbar fusion. Impression: Posterior lumbar fusion.
--- NOTE | 2023-04-02 06:13 | PC.NURSE ---
Wedding band to
--- NOTE | 2023-04-02 06:22 | W.PM.OPSUD ---
Surgery/Procedure H&P Update DATE OF PROCEDURE: April 02, 2023 DATE H&P PERFORMED: 03/28/23 H&P UPDATE INFORMATION: I have reviewed H&P completed within last 30 days, I have examined patient prior to procedure and No changes to prior documentation PREOP DIAGNOSIS: DDD lumbar, Lumbar spondylosis w/radiculopathy PLANNED PROCEDURE: Operation Date: 04/02/23 07:00 Proposed Procedures s Posterior Lumbar Interbody Fusion PLIF(Not Applicable) - Kenny Gomez DO s Sacroiliac Joint Fusion SI Joint Fusion(Not Applicable) - Kenny Gomez DO p Spinal Fusion PSF(Not Applicable) - Kenny Gomez DO
[2023-04-02] MEDS: sodium chloride 0.9% 1,000 ML 30 ML IV (06:30)
[2023-04-02] MEDS: ceFAZolin 2,000 MG in sodium chloride 0.9% (plus) 50 ML 100 MG IV ×3 (07:01→22:28)
[2023-04-02] MEDS: heparin, porcine 1,000 unit/mL INJ 10 mL 6000 UNIT IRRIGATION (07:55)
[2023-04-02] MEDS: thrombin 5,000 unit SDV 5000 UNIT XX (07:55)
[2023-04-02] MEDS: lidocaine-epi 2% 20 mL INJ INJECTION (07:56)
[2023-04-02] MEDS: vancomycin 1,000 MG SDV 1000 MG XX (09:11)
--- NOTE | 2023-04-02 10:18 | PM.OP ---
Operative Report Date of procedure: April 02, 2023 Pre-op diagnosis: Lumbar stenosis with neurogenic claudication Post-op diagnosis: same Procedure done: 1. L4/5 Interbody fusion with posterolateral fusion 2. L5/S1 Interbody fusion with posterolateral fusion 3. Instrumentation L4- S1 4. Cage at L4/5 5. Cage L5/S1 6. L4/5 Laminectomy with partial facetectomy for purpose of decompressing nerve 7. L5/S1 lamienctomy with partial facetectomy for purpose of decompressing nerve 8 . use of autograft from same incision 9. allograft 10. Bone marrow aspirate from right iliac crest Surgeon: Kenny Gomez DO Utility Spray Operator: Vazquez Portillo Utility Spray Operator: The surgical instrument mechanic, Vazquez Portillo, PAC was needed for his expertise under the microscope. He was important and necessary throughout the procedure to complete in a safe and timely manner. He assisted with patient positioning prepping and draping tissue retraction suctioning of the operative field protection of the dural sac and tissue closure Estimated blood loss (mL): 650 Procedure: 1. L4/5 Interbody fusion with posterolateral fusion 2. L5/S1 Interbody fusion with posterolateral fusion 3. Instrumentation L4- S1 4. Cage at L4/5 5. Cage L5/S1 6. L4/5 Laminectomy with partial facetectomy for purpose of decompressing nerve 7. L5/S1 lamienctomy with partial facetectomy for purpose of decompressing nerve 8 . use of autograft from same incision 9. allograft 10. Bone marrow aspirate from right iliac crest Patient is brought to the operative suite.? After undergoing anesthesia, the patient had neuro monitoring attached.? Patient was then placed in the prone position on the Andrew table.? All areas of impingement were well-padded.? Patient was then prepped and draped in the normal sterile fashion.? Skin incision was then made over the L4-S1 disk space.? Subperiosteal dissection was made out to the transverse processes of L 4 bilaterally and L5 bilaterally and the sacral ala.? The [address] bone marrow aspirate kit was used to aspirate bone marrow aspirate.? This was done by using the sharp probe to open up the bone and the right iliac crest.? Aspiration was performed and then the blunt probe was then used to dissect down to through the bone tunnel.? An aspirating well drawn back a millimeter approximately 20 cc of bone marrow aspirate was used.? Admixed with the allograft and autograft bone that will be used. Next the fiducial was placed for use and computer navigation.? This was done by placing 2 pins in the right iliac crest which were later removed.? The fiducial was attached to these pins.? The C-arm was brought in and spun around the patient.? Information from the C-arm was then loaded into the computer for later use with the computer navigation for the placement of pedicle screws. The technique for placing the pedicle screws was to use a drill followed by the gearshift probe linked to computer navigation.? Followed by the ball probe to feel the superior inferior medial lateral gonzalez of the pedicles.? Then placement of the screws with computer navigation.? Was done at each pedicle.? Screws were placed at L4 bilaterally and L5 bilaterally and S1 bilaterally. Next attention was brought to performing the laminectomy ofL4. This was done using the high-speed bur Kerrisons and curettes. Once the lamina was removed and then attention was brought to performing a partial facetectomy on the contralateral side. This was done again using the high-speed bur curettes and Kerrisons. The ligamentum flavum was taken down bilaterally from L4 to L5. Attention was then brought to the facet on the ipsilateral side. The facet was taken down. The L5 nerve was decompressed as it passed around the L5 pedicle. The laminectomy was done for purposes of decompressing the nerve as well as placement of the cage. The L4 nerve was identified as it traversed through the L4/5 foramen. The thecal sac was identified and retracted. The L4/5 disc base was identified. Using a knife the disc base was opened. And then sequential saulo were placed. The first shaver was a 6 and the last shaver was a 10. Using a pituitary and down going curette the endplates were scraped and disc material was removed from the space. Once adequate decompression of the disc base was felt to be had. Osteoamp sponge was packed into the anterior aspect of the disc base. Then a size 10 cage from [place] was placed after packing osteoamp into the cage. While placing the cage the thecal sac and L5 nerve was protected. C arm was used to ensure that the cages placed in the appropriate position. Next attention was brought to performing the laminectomy ofL5. This was done using the high-speed bur Kerrisons and curettes. Once the lamina was removed and then attention was brought to performing a partial facetectomy on the contralateral side. This was done again using the high-speed bur curettes and Kerrisons. The ligamentum flavum was taken down bilaterally from L5 to s1. Attention was then brought to the facet on the ipsilateral side. The facet was taken down. The S1 nerve was decompressed as it passed around the S1 pedicle. The laminectomy was done for purposes of decompressing the nerve as well as placement of the cage. The L5 nerve was identified as it traversed through the L5/S1 foramen. The thecal sac was identified and retracted. The L5/S1 disc base was identified. Using a knife the disc base was opened. And then sequential saulo were placed. The first shaver was a 6 and the last shaver was a 12. Using a pituitary and down going curette the endplates were scraped and disc material was removed from the space. Once adequate decompression of the disc base was felt to be had. Osteoamp sponge was packed into the anterior aspect of the disc base. Then a size 12 cage from [place] was placed after packing osteoamp into the cage. While placing the cage the thecal sac and S1 nerve was protected. C arm was used to ensure that the cages placed in the appropriate position. Attention was then brought to attaching the rods to the screws placed in the L4 bilaterally, L5 bilaterally and S1 bilaterally. Caps were torqued into position. Locking the construct in place. Wound was copiously irrigated and then attention was brought to decorticating the facets and transverse processes laterally. Bone that was taken down from the lamina was used along with osteoamp fibers and sponges were packed into the lateral gutters along the facet joints. This was done bilaterally. Wound was then closed in a layered fashion starting with the thoracolumbar fascia. 0-vicryl was used the sub cutaneous tissue was closed with 2-0 vicryl and skin with 4-0 monocryl. Glue was then used to seal the skin and a steril dressing was applied. Patient was then placed in the supine position. The endotracheal tube was removed and patient was transferred to the PACU in stable condition.
[2023-04-02] MEDS: ketorolac 30 mg/mL INJ IVP ×2 (11:54→19:23)
[2023-04-02] MEDS: lactated ringers 1,000 ML 90 ML IV ×2 (12:14→23:42)
[2023-04-02] MEDS: albuterol 2.5 mg/3 mL Neb INHALATION ×3 (12:20→20:24)
--- NOTE | 2023-04-02 12:52 | PC.NURSE ---
Pt becoming very agitated coming out of anesthesia. states that this is normal for him. The last time he had surgery, he became violent. Vazquez Portillo contacted and advised that pt is becoming agitated and pulling at clothes and IV. New order received for Ativan 0.5mg IVP x1.
--- NOTE | 2023-04-02 13:06 | P.ANESASSM_ITS ---
Pre-Anesthetic Assessment Height/Weight: Height 1.83 m Weight 141.974 kg Temp Pulse Resp BP Pulse Ox O2 Del Method O2 Flow Rate 97 F L 92 18 140/81 98 Room Air 8 04/02/23 10:35 04/02/23 12:00 04/02/23 12:00 04/02/23 11:22 04/02/23 12:00 04/02/23 12:00 04/02/23 11:00 Preop Diagnosis: DDD lumbar, Lumbar spondylosis w/radiculopathy Operation Date: 04/02/23 07:00 Proposed Procedures s Posterior Lumbar Interbody Fusion PLIF(Not Applicable) - Kenny Gomez DO s Sacroiliac Joint Fusion SI Joint Fusion(Not Applicable) - Kenny Gomez DO p Spinal Fusion PSF(Not Applicable) - Kenny Gomez DO Familial anesthetic complications: none Was Beta Riccardo taken within 24 hours: N/A Was Clonidine taken within 24 hours: N/A Last intake: Intake Last Liquid Date 04/01/23 Last Liquid Time 21:30 Last Solid Date 04/01/23 Last Solid Time 20:00 Social No alcohol and No tobacco Yoselin Exam alert, oriented x 3, clear to auscultation bilaterally and regular rate & rhythm Airway Submandibular: within normal limits Cervical ROM: Other (Limited extension) Mallampati: Class III Dentition: chipped Pulmonary Asthma and Sleep Apnea Metabolic Diabetes Mellitus and Morbid Obesity Musc/skel Lower Back Pain and Osteoarthritis/DJD Neuropsych Seizure and Syncope Chronic pain Anesthetic Plan ASA status: 3 Anesthesia: General Medications/Allergies Home Medications Medication Instructions Recorded Confirmed Last Taken Type MEDICAL MARIJUANA 1 puff as directed PRN PRN Pain 10/15/19 04/02/23 04/01/23 History blood-glucose meter (Accu-Chek #1 ea 12/07/21 04/02/23 04/01/23 Rx Ashley Plus Meter) albuterol sulfate 90 mcg/actuation 1 inh inhalation Q6H PRN shortness 08/02/22 04/02/23 04/01/23 Rx aerosol inhaler (ProAir HFA) of breath or wheezing 30 days #8.5 grams blood sugar diagnostic (Parity EnergyTouch #100 strips 09/29/22 04/02/23 04/01/23 Rx Ultra Test strips) diazepam 5 mg tablet 5 mg PO BID PRN Back spasms #60 02/21/23 04/02/23 04/01/23 Rx tabs hydrocodone 5 mg-acetaminophen 325 1 tab PO BID PRN pain 30 days #60 02/28/23 04/02/23 04/01/23 Rx mg tablet tabs budesonide-formoterol HFA 160 2 puff inhalation BID 03/30/23 04/02/23 04/01/23 History mcg-4.5 mcg/actuation aerosol inhaler (Symbicort) divalproex 250 mg tablet,extended 500 mg PO BID 03/30/23 04/02/23 04/01/23 History release 24 hr (Depakote ER) Allergies Allergy/AdvReac Type Severity Reaction Status Date / Time Anesthetics - Amide Type - Allergy ADR-Agitate Verified 04/02/23 06:03 Select A d Current Medications Generic Name Dose Route Start Last Admin Trade Name Freq PRN Reason Stop Dose Admin Albuterol Sulfate 2.5 mg 04/02/23 12:00 04/02/23 12:20 Albuterol 2.5 Mg/3 Ml Neb INHALATION 2.5 mg QID.RESPIRATORY ADRIAN Administration Lactated Ringer's 1,000 mls @ 90 mls/hr 04/02/23 10:15 04/02/23 12:14 Lactated Ringers IV 90 mls/hr .[id number] ADRIAN Administration Ketorolac Tromethamine 30 mg 04/02/23 10:11 04/02/23 11:54 Ketorolac 30 Mg/Ml Inj IVP 30 mg Q6H PRN Administration BREAKTHROUGH PAIN PFSH Anesthesia Medical History senior living (current) use of opiate analgesic Pain management contract signed Medical marijuana use Elevated WBC count Mixed hyperlipidemia Diabetes mellitus, type II Vitamin D deficiency Medication management [id number] condition Shortness of breath Bacterial lower respiratory infection Lumbar stenosis with neurogenic claudication Displacement of lumbar disc with radiculopathy Cervical disc disorder with myelopathy of mid-cervical region Hypothyroidism Mixed hyperlipidemia Surgical History No pertinent past surgical history Family History Father CAD (coronary artery disease) Age 66 Mother CAD (coronary artery disease) Social History Smoking and tobacco/nicotine status: never used tobacco/nicotine Quit status (tobacco/nicotine): has quit using Year quit tobacco: 1996 Former quit date comment: 1 pack per day x 5 years Second hand smoke exposure: No Alcohol intake: former Substance/Drug Use: current Substance/Drug use frequency: daily Household members: spouse and children Marital status: Number of children: 4 Current occupational status: unemployed Pets and animals: Yes Pets & animals: dog(s) Data Anesthesia Blood Bank 04/02/23 06:23 Blood Type B Positive Rho(D) Type Rh positive Antibody Screen Negative Cardiac Studies: Echocardiogram 10/14/21
[2023-04-02] MEDS: HYDROcodone-acetaminophen 10-325 mg Tablet PO ×2 (13:34→20:30)
--- NOTE | 2023-04-02 15:51 | ANE.PACU2 ---
Inpatient post-anesthesia follow up: Airway intact: Yes Vital signs: Temperature 97 F Pulse Rate 89 Respiratory Rate 18 Blood Pressure 137/82 Pulse Oximetry 96 Oxygen Delivery Me thod Room Air Oxygen Flow Rate 8 Fraction of Inspir ed Oxygen Hydration adequate: Yes Nausea and vomiting: No Pain level: 3 Mental status: Altered (sedated)
[2023-04-02] MEDS: docusate sodium 100 mg Capsule PO (16:43)
[2023-04-02] MEDS: divalproex ER 500 mg Tablet (24H) PO (16:43)
--- NOTE | 2023-04-02 17:34 | PC.NURSE ---
Pt adamant that zambrano be removed NOW. Zambrano cath removed by this nurse with cath intact.
[2023-04-02] MEDS: budesonide 0.5 mg/2 mL Neb INHALATION (20:24)
[2023-04-02] MEDS: diazePAM 5 mg Tablet PO (20:30)
[2023-04-03] VITALS (8 sets, daily range): BP systolic 109–138; BP diastolic 68–88; PULSE 103–117; RESP 16–18; TEMP 36.4–36.8; O2SAT 96–99
[2023-04-03] MEDS: HYDROcodone-acetaminophen 10-325 mg Tablet PO ×4 (03:40→21:09)
[2023-04-03] MEDS: ceFAZolin 2,000 MG in sodium chloride 0.9% (plus) 50 ML 100 MG IV (06:09)
--- NOTE | 2023-04-03 07:27 | P.PN_ITS ---
Subjective Subjective: POD 1 Patient up walking in room. Denies any lightheadedness dizziness. Denies any chest pain shortness of breath or headaches. Reports improvement of his leg pain mild back pain. Hemovac drain is intact. Vitals/I&O/Wt Last Vital Signs Temp 98.2 F 04/03/23 04:00 Pulse 105 H 04/03/23 04:00 Resp 17 04/03/23 04:00 BP 118/79 04/03/23 04:00 Pulse Ox 99 04/03/23 04:00 O2 Del Method Room Air 04/02/23 20:00 O2 Flow Rate 8 04/02/23 11:00 04/02/23 04/03/23 04/03/23 22:59 06:59 14:59 Intake Total 350 / 3200 1100 / 4300 Output Total 900 / 2010 550 / 2560 Balance -550 / 1190 550 / 1740 Weight last 48 hrs Weight 319 lb 3.2 oz Weight 313 lb Weight 313 lb Physical Exam Narrative: Patient presents alert and oriented x3 with a good general appearance normal mood and affect. Normal coordination normal stability. Mild tenderness around the incisional site with the incision appear to be clean and dry with Hemovac drain intact. No signs of erythema or drainage. No signs of infection. Patient denies any fevers or chills. 5/5 motor strength both lower extremities with negative straight leg raise bilaterally. Calves are supple no medial thigh tenderness. Pulses are 2+ at the dorsalis pedis and posterior tibial region. Good capillary refill throughout normal sensation light touch both lower extremities. Urinary Catheter Management: Valentin: Cath Placed During This Visit: yes, but has since been removed by the nurse Reason for Continuing Indwelling Catheter: Perioperative Use in Selected S urgeries Urinary Catheter Date of Insertion: 04/02/23 Urinary Catheter Time of Insertion: 07:25 Date Urinary Catheter Removed: 04/02/23 Time Urinary Catheter Discontinued: 17:33 A&P Assessment and plan (1) Status post lumbar spinal fusion: Physical therapy to evaluate work with mobilization. Will order an H&H this morning. Continue Hemovac drain as he had 460 mL over the last 12 hours. Encourage incentive spirometry for pulmonary toilet. Patient is high risk of bleeding we will continue SCDs for DVT prophylaxis. Will work for discharge home tomorrow. Attestations Medical Necessity Statement*: Discharge home tomorrow when more medically stable Coding Level of Care Code Acute Code for Chg Fwd Diagnoses Status post lumbar spinal fusion Z98.1
[2023-04-03 07:43] LABS: Hematocrit 37.5 % (37-53)
[2023-04-03] MEDS: budesonide 0.5 mg/2 mL Neb INHALATION ×2 (07:57→20:42)
[2023-04-03] MEDS: albuterol 2.5 mg/3 mL Neb INHALATION ×4 (07:57→20:43)
[2023-04-03] MEDS: divalproex ER 500 mg Tablet (24H) PO ×2 (08:13→17:18)
[2023-04-03] MEDS: docusate sodium 100 mg Capsule PO ×2 (08:13→17:18)
--- NOTE | 2023-04-03 09:13 | PC.CHAP ---
Pastoral Care Encounter/Spiritual Assessment Type of Contact [] Declined business center attendant visit [] Patient/Family/Request visit [] Outpatient visit [] Follow-up visit [] Physician referral [] Code/Alert [x] Routine visit [] Staff referral [] Actively dying [] Patient sleeping [] Family support [] [] Out of room [] Palliative care [] [] Receiving care in room [] Pre-surgical visit [] Trauma [] Long length of stay [] ICU visit [] Other: Relational/Emotional Strength [x] Patient feels connected with others/family/visitors/staff [] Distress [] Loneliness/isolation [] Abandonment Spirituality of Patient [x] Person of Urszula [] Attends Orthodoxy of their Urszula [x] Believes in Prayer [] Reads Bible or Islam materials [] There are Spiritual issues to be addressed Deli Manager Interventions [x] Prayer [] Active listening [] Non-anxious presence [x] Spiritual/emotional support [] Crisis/trauma care [] Spiritual counseling [] Bereavement support [] Provided bereavement packet [] Provided Bible/devotional materials [] Provided toy/stuffed animal, coloring book to patient or family member [] Provided Communion [] Anointing/[place] [] Salvation [x] Completed spiritual assessment [] Other: Impact on Illness or Injury [] Angry [] Fearful [] Anxious [] Often cries [] Exhaustion [] Unable to work [] Unable to attend jehovah's witness [] Unable to walk/stand [] Unable to read [] Unable to drive [] Unable to eat/drink [] Unable to sleep [] Unable to be with family [] Patient intubated [] Other: Summary Time spent with patient 5 min
[2023-04-03] MEDS: diazePAM 5 mg Tablet PO ×2 (09:32→21:09)
[2023-04-03] MEDS: lactated ringers 1,000 ML 90 ML IV ×2 (09:40→21:05)
[2023-04-03] MEDS: ketorolac 30 mg/mL INJ IVP (16:20)
[2023-04-04] VITALS: BP 129/83; PULSE 102; RESP 18; TEMP 36.4; O2SAT 96
[2023-04-04] MEDS: HYDROcodone-acetaminophen 10-325 mg Tablet PO ×2 (02:20→08:22)
--- NOTE | 2023-04-04 02:42 | PC.NURSE ---
This nurse was overseeing patients care while this patients primary nurse was on lunch break. PAPER HANGER came to this nurse and notified that the patients hemovac drain hose had disconnected from the drain collection chamber. This nurse went into patients room and revealed patient holding the drainage hose with it now out of this patients back. This nurse dressed insertion site with 4x4 gauze and tegaderm. Primary nurse notified. No further concerns at this time.
[2023-04-04 05:00] VITALS: BP 130/60; PULSE 68; RESP 16; TEMP 36.4; O2SAT 95
--- NOTE | 2023-04-04 06:48 | P.PN_ITS ---
Subjective 2 Subjective: POD 2 Patient is up in the chair feeling better states his legs are weak but does not have the pain. Denies shortness of breath, chest pain, headaches. He is ready for discharge home Vitals/I&O/Wt Last Vital Signs Temp 97.6 F 04/04/23 05:00 Pulse 68 04/04/23 05:00 Resp 16 04/04/23 05:00 BP 130/60 04/04/23 05:00 Pulse Ox 95 04/04/23 05:00 O2 Del Method Room Air 04/03/23 20:43 O2 Flow Rate 8 04/02/23 11:00 04/03/23 04/03/23 04/04/23 14:59 22:59 06:59 Intake Total 1137 / 1137 1600 / 2737 Output Total 480 / 480 55 / 535 Balance 1137 / 1137 1120 / 2257 -55 / 2202 Weight last 48 hrs Weight 319 lb 3.2 oz Weight 319 lb 3.2 oz Weight 313 lb Physical Exam 2 Narrative: Patient presents alert and oriented x3 with a good general appearance normal mood and affect. Normal coordination normal stability. Mild tenderness around the incisional site with the incision appear to be healing nicely. No signs of erythema or drainage. No signs of infection. Patient denies any fevers or chills. 4/5 motor strength both lower extremities with negative straight leg raise bilaterally. Calves are supple no medial thigh tenderness. Pulses are 2+ at the dorsalis pedis and posterior tibial region. Good capillary refill throughout normal sensation light touch both lower extremities. Urinary Catheter Management: Valentin: Cath Placed During This Visit: yes, but has since been removed by the nurse Reason for Continuing Indwelling Catheter: Perioperative Use in Selected Surgeries Urinary Catheter Date of Insertion: 04/02/23 Urinary Catheter Time of Insertion: 07:25 Date Urinary Catheter Removed: 04/02/23 Time Urinary Catheter Discontinued: 17:33 Data 04/03/23 07:33 A&P Assessment and plan (1) Status post lumbar spinal fusion: Encouraged him to maintain a walking program. Be cautious with bending lifting or twisting. Continue incentive spirometer for pulmonary toilet. Will see him back in the office for a wound check in 1 week. Attestations 2 Medical Necessity Statement*: Discharge home this morning Coding Level of Care Code Acute Code for Chg Fwd Diagnoses Status post lumbar spinal fusion Z98.1
[2023-04-04 07:12] VITALS: BP 111/77; PULSE 93; RESP 18; TEMP 36.6; O2SAT 98
--- NOTE | 2023-04-04 08:15 | PC.SOCIAL ---
Care Coordination CM was called by PT, as CM has not been triggered on patient, and told that patient will need a walker to go home with. Lonnie in PT has discussed w/ patient and they would like HOME. Choice sheet completed and placed in chart. [employer] confirmation: [id number] completed. All documentation faxed to HOME @ this time and requested they deliver as patient is DCing today.
[2023-04-04] MEDS: docusate sodium 100 mg Capsule PO (08:22)
[2023-04-04] MEDS: divalproex ER 500 mg Tablet (24H) PO (08:22)
[2023-04-04 08:27] VITALS: PULSE 106; RESP 16; O2SAT 97
[2023-04-04] MEDS: albuterol 2.5 mg/3 mL Neb INHALATION (08:27)
[2023-04-04] MEDS: budesonide 0.5 mg/2 mL Neb INHALATION (08:27)
[2023-04-04 08:37] VITALS: PULSE 99
[2023-04-04] MEDS: diazePAM 5 mg Tablet PO (10:42)
[2023-04-04 13:04] VITALS: PULSE 99
--- NOTE | 2023-04-05 11:04 | PM.DCS ---
Discharge Providers Date of Admission: 04/02/23 10:37 Date of Discharge: April 04, 2023 Attending Provider at Admission: Kenny Gomez DO Attending Provider at Discharge: Kenny Gomez DO Primary Care Provider: Lucinda Boateng APN Diagnoses at Discharge Discharge Diagnosis (1) Status post lumbar spinal fusion: Status: Acute Reason for Visit Reason for Visit: M48.062, M51.37, M47.26 Physical Exam Urinary Catheter Management: Valentin: Cath Placed During This Visit: yes, but has since been removed by the nurse Reason for Continuing Indwelling Catheter: Perioperative Use in Selected Surgeries Urinary Catheter Date of Insertion: 04/02/23 Urinary Catheter Time of Insertion: 07:25 Date Urinary Catheter Removed: 04/02/23 Time Urinary Catheter Discontinued: 17:33 Discharge Data Studies Completed and Pending Completed Studies During Hospitalization Category Date Time Status XR lumbar spine 2-3V* 91775 Routine Exams 04/02/23 Completed Laboratory Results Hgb 12.50 g/dL (11.27-16.99) 04/03/23 07:33 Hct 37.5 % (37-53) 04/03/23 07:33 Blood Type B Positive 04/02/23 06:23 Rho(D) Type Rh positive 04/02/23 06:23 Antibody Screen Negative 04/02/23 06:23 Vitals Last Vital Signs Temp 98 F 04/04/23 07:12 Pulse 99 04/04/23 13:04 Resp 16 04/04/23 08:27 BP 111/77 04/04/23 07:12 Pulse Ox 97 04/04/23 08:27 O2 Del Method Room Air 04/04/23 11:51 O2 Flow Rate 8 04/02/23 11:00 Discharge Plan Discharge Patient Disposition: Home Condition: Stable Prescriptions: New hydrocodone-acetaminophen 10-325 mg Tablet 1 - 2 tab PO Q4H PRN (Reason: Postoperative pain) Qty: 30 0RF hydrocodone-acetaminophen 10-325 mg Tablet 1 - 2 tab PO Q4H PRN (Reason: Post Operative Pain) Qty: 30 0RF Continued MEDICAL MARIJUANA 1 puff as directed PRN PRN (Reason: Pain) albuterol sulfate [ProAir HFA] 90 mcg/actuation HFA aerosol inhaler 1 inh inhalation Q6H PRN (Reason: shortness of breath or wheezing) 30 Days Qty: 8.5 2RF diazepam 5 mg tablet 5 mg PO BID PRN (Reason: Back spasms) Qty: 60 0RF Rx Instructions: 2 at bedtime hydrocodone-acetaminophen 5-325 mg tablet 1 tab PO BID PRN (Reason: pain) 30 Days Qty: 60 0RF (DME) blood-glucose meter [Accu-Chek Ashley Plus Meter] Misc See Rx Instructions .Route Qty: 1 0RF Rx Instructions: As directed (DME) OneTouch Ultra Test Strip See Rx Instructions .ROUTE .COMPLEX Qty: 100 0RF Dose Instruction: USE TO TEST DAILY Rx Instructions: USE TO TEST DAILY divalproex [Depakote ER] 250 mg tablet extended release 24 hr 500 mg PO BID Rx Instructions: TAKE 2 TABLETS BY MOUTH TWICE DAILY budesonide-formoterol [Symbicort] 160-4.5 mcg/actuation HFA aerosol inhaler 2 puff inhalation BID Rx Instructions: INHALE 2 PUFFS BY MOUTH TWICE DAILY. Discharge Orders: Discharge Order (Routine); Ordered 04/04/23 Ordered By: Vazquez Portillo Other Ambulatory Orders: DME: Walker (Order) Location: None Selected Ordered By: Kenny Gomez Referrals: Kenny Gomez, [Physician] - 04/05/23 8:00 am () Discharge Diet: Advance as tolerated Discharge Activity: Limit activity as instructed Patient Instructions: Hydrocodone/Acetaminophen (By mouth), Lumbar Spinal Fusion (GEN), Opioid Safety Activity Restrictions/Additional Instructions: Thank you for choosing [facility] for your care! The following is a list of instructions, from your provider, to follow upon your discharge to ensure you have the optimal recovery from your recent injury or surgery. Follow-up care is a kirk part of your treatment and safety. Be sure to make and go to all appointments and call your doctor if you are having problems. If you do not already have a follow-up appointment made, call Dr. Gomez's] office in the next 1-3 days to make follow up appointment for [1-2] weeks at [phone]. It is also a good idea to know your test results and keep a list of the medicines you take. Medications will be prescribed for you at your provider's discretion. These medications are to be used as instructed; if they are taken more often that prescribed they will not be refilled early and in most cases will not be refilled at all. > When a refill is needed, you should contact christine barfield 2-3 business days before your prescription runs out. Medications will NOT be refilled by python web developer providers after hours! > Many pain medications contain Tylenol (Acetaminophen). Do not consume more than 4,000 mg of Tylenol per day in total with any combination of medications. > Pain medications can cause constipation. Please use an over the counter stool softener as directed, while taking pain medications. Consult your local pharmacist with questions or recommendations on stool softeners. If constipation persists, contact our office or your primary care provider. > While under our care, you are not to receive pain medications or other controlled substances from any other provider unless our office is notified and approves. Any attempts to do so will result in refusal to prescribe any further pain medications and possible dismissal from our practice. ? Walking is essential for the healing process after surgery. We would like you to slowly advance your walking. This should be done on relatively flat clear ground (inside or out) or can be done on a treadmill. Remember this goal does not have to happen all at once, slowly increase your distance and duration. This can be broken into more more than one walk per day as tolerated. Patients who walk as directed after surgery rarely require Physical Therapy. In the unlikely event this issue arises your provider will direct hospital staff to make the appropriate arrangements. ? No lifting over 5 pounds {a gallon of milk) or bending/twisting until further notice. Each of these activities places an unnecessary amount of stress onto the body and can impede the delicate healing process. > Instead of bending at the waist, keep your back straight and bend at the knees. > Instead of twisting your torso, keep your back straight and turn your entire body with your feet. ? You may sleep in any position which makes you comfortable. Many patients find comfort sleeping in a reclining chair. It is not abnormal to have difficulty sleeping for the first several weeks following your surgery. We recommend trying Benadry! or Tylenol PM as directed to help with your sleeping difficulties. Both medications are over the counter and available without prescription. ? NO SMOKING!!! Smoking dramatically increases the probability of developing postoperative wound infections. ? Common complaints after lumbar and/or thoracic spine surgery include, but are not limited to: numbness and/or tingling in the legs, pain around the incision and surrounding tissues, muscle spasms, or stiffness of the middle to low back. Contact our office if these symptoms persist or if an acute change occurs. ? No driving for the first 3-5days, and not while taking narcotics until seen at your follow-up appointment and cleared. There are no restrictions for riding on short trips, however if you take a longer trip, arrangements should be made to make regular stops to get out of the vehicle and stretch . ? Swelling is an unfortunate event that will take place with any surgery and is the primary source of your postoperative discomfort. While walking and regular approved activities helps control inflammation, there are additional steps you can take to minimize swelling. > Place ice over the surgical site and surrounding tissue for twenty minutes, followed by applying a low/medium heat (heating pad) for an additional twenty minutes every 1-2 hours as needed for painrelief. > You may use of over the counter anti-inflammatory medications (Ibuprofen, Motrin, Aleve, Advil, etc) as directed on the package label. These types of medicines will significantly reduce the amount of discomfort you experience after surgery from swelling. It should be noted that if you have and allergy to any of these medications, or a history of ulcers or kidney disease you should consult you primary care provider prior to starting these medications. Discharge Attestations Time Spent in Discharge Care*: less than 30 min Quality Metrics Clinical Quality Measures [ No reported AMI, CVA or VTE this stay] Coding Level of Care Code Acute Code for Chg Fwd Diagnoses Status post lumbar spinal fusion Z98.1
== END 2023-04-04 11:55 | disposition home or self-care (01) | DRG 455 ==
LOC: MEDSURG 11:57
PROVIDERS: Physician Assistant; Admitting Provider Orthopaedic Surgery; PCP Nurse Practitioner; Visit Provider Orthopaedic Surgery
PROC: 0SG00AJ Fusion of Lumbar Vertebral Joint with Interbody Fusion Device, Posterior Approach, Anterior Column, Open Approach (ICD-10-PCS; CPT 22612; principal; 2023-04-02 07:00)
DX: M48.062 Spinal stenosis, lumbar region with neurogenic claudication (principal); M47.816 Spondylosis without myelopathy or radiculopathy, lumbar region; E11.9 Type 2 diabetes mellitus without complications; M51.16 Intervertebral disc disorders with radiculopathy, lumbar region; E03.9 Hypothyroidism, unspecified; E78.5 Hyperlipidemia, unspecified; Z86.16 Personal history of COVID-19; M51.37 Other intervertebral disc degeneration, lumbosacral region
CPT/HCPCS: 36415; 51702; 72100; 76000; 85014; 85018; 86850; 86900; 94640; 97110; 97116; 97161; 97530; C1713; C9359; J0131; J0330; J0690; J1100; J1170; J1644; J1885; J2060; J2405; J2704; J3010; J3370; J3490; J7030; J7120; J7613; J7626; P9045

== ENCOUNTER → 2023-04-17 07:57 | Outpatient (BNVA) | payer MEDICAID, SELFPAY | PROVIDERS: PCP Nurse Practitioner; Visit Provider Physician Assistant | DX: Z98.1 Arthrodesis status (principal); Z47.89 Encounter for other orthopedic aftercare | CPT/HCPCS: 72100 ==

== ENCOUNTER → 2023-05-15 10:03 | Outpatient (BNVA) | payer MEDICAID, SELFPAY | PROVIDERS: PCP Nurse Practitioner; Visit Provider Orthopaedic Surgery | DX: Z98.1 Arthrodesis status (principal); Z47.89 Encounter for other orthopedic aftercare | CPT/HCPCS: 72100 ==

== ENCOUNTER → 2023-06-26 10:46 | Outpatient (BNVA) | payer MEDICAID, SELFPAY | PROVIDERS: PCP Nurse Practitioner Family; Visit Provider Orthopaedic Surgery | DX: Z98.1 Arthrodesis status (principal) | CPT/HCPCS: 72100 ==

== ENCOUNTER 2023-07-06 19:25 | Outpatient (CLI) | payer MEDICAID, SELFPAY ==
--- NOTE | 2023-07-06 20:27 | XRR_ITS ---
PROCEDURE INFORMATION: Exam: XR Right Foot Exam date and time: 07/06/2023 7:45 PM Age: 52 years old Clinical indication: Pain; Foot; Right; Additional info: S93.601a - unspecified sprain of right foot, initial enco. . . TECHNIQUE: Imaging protocol: Radiologic exam of the right foot. Views: 3 or more views. COMPARISON: No relevant prior studies available. FINDINGS: Bones/joints: Normal. Mild calcaneal spurring. No fracture or dislocation. No acute osseous, joint, or soft tissue abnormality. Soft tissues: See Bones/joints finding. XR/XR foot RT min 3V* [id number] IMPRESSION: No acute findings.
--- NOTE | 2023-07-06 20:27 | XRR_ITS ---
PROCEDURE INFORMATION: Exam: XR Right Ankle Exam date and time: 07/06/2023 7:45 PM Age: 52 years old Clinical indication: Pain; Foot; Right; Additional info: S93.601a - unspecified sprain of right foot, initial enco. . . TECHNIQUE: Imaging protocol: Radiologic exam of the right ankle. Views: 3 or more views. COMPARISON: CR XR foot RT min 3V* 61500 07/06/2023 7:45 PM FINDINGS: Bones/joints: Normal. Plantar calcaneal spurring. No acute osseous, joint, or soft tissue abnormality. Soft tissues: Normal. XR/XR ankle RT min 3V* [id number] IMPRESSION: No acute findings.
== END 2023-07-06 19:26 | disposition home or self-care (01) ==
LOC: RAD 19:29
PROVIDERS: Absent Provider Nurse Practitioner Family; Visit Provider Nurse Practitioner Family
DX: S93.601A Unspecified sprain of right foot, initial encounter (principal); S93.401A Sprain of unspecified ligament of right ankle, initial encounter
CPT/HCPCS: 73610; 73630

== ENCOUNTER → 2023-08-01 12:01 | Outpatient (BNVA) | payer MEDICAID, SELFPAY | PROVIDERS: PCP Nurse Practitioner Family; Visit Provider Surgery | DX: K62.5 Hemorrhage of anus and rectum (principal) | CPT/HCPCS: 82274 ==

== ENCOUNTER → 2023-10-02 08:56 | Outpatient (BNVA) | payer MEDICAID, SELFPAY | PROVIDERS: PCP Nurse Practitioner Family; Visit Provider Orthopaedic Surgery | DX: Z98.1 Arthrodesis status (principal); M54.9 Dorsalgia, unspecified | CPT/HCPCS: 72100 ==

== ENCOUNTER 2023-10-25 06:00 | Outpatient (RCR) | payer MEDICAID, SELFPAY | END 2023-11-14 23:59 | disposition home or self-care (01) | LOC: WPT 06:00 | PROVIDERS: PCP Nurse Practitioner Family; Visit Provider Orthopaedic Surgery | DX: M54.9 Dorsalgia, unspecified (principal); G89.29 Other chronic pain | CPT/HCPCS: 97110; 97162 ==

== ENCOUNTER 2023-10-30 07:58 | Day surgery (SDC) | payer MEDICAID, SELFPAY ==
--- NOTE | 2023-10-30 07:53 | P.HP_ITS ---
Same Day Surgery H&P Indication for Procedure/HPI DATE OF PROCEDURE: October 30, 2023 CHIEF COMPLAINT/INDICATIONFOR SURGICAL PROCEDURE: rectal bleeding PREOP DIAGNOSIS: need for screening colonoscopy PLANNED PROCEDURE: Operation Date: 10/30/23 09:05 Proposed Procedures p Colonoscopy 97060, G0105, K62.5(Not Applicable) - Cesar Hawthorne MD Medications/Allergies* Home Medications Medication Instructions Recorded Confirmed Type MEDICAL MARIJUANA 1 puff as directed PRN PRN Pain 10/15/19 10/26/23 History budesonide-formoterol HFA 160 2 puff inhalation BID 03/30/23 10/26/23 History mcg-4.5 mcg/actuation aerosol inhaler (Symbicort) divalproex 250 mg tablet,extended 500 mg PO BID 10/26/23 10/26/23 History release 24 hr Allergies/Adverse Reactions Allergy/AdvReac Type Severity Reaction Status Date / Time Anesthetics - Amide Type - Allergy ADR-Agitate Verified 10/26/23 08:16 Select A d Pertinent History/Comorbid Conditions* Medical History (Updated 07/09/23 @ 18:33 by DIANN Craig) Sprain of ankle, right Sprain of foot, right Rectal bleeding 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 Pain management contract signed Medical marijuana use Elevated WBC count Mixed hyperlipidemia Diabetes mellitus, type II Vitamin D deficiency Medication management [id number] condition Shortness of breath Bacterial lower respiratory infection Lumbar stenosis with neurogenic claudication Displacement of lumbar disc with radiculopathy Cervical disc disorder with myelopathy of mid-cervical region Hypothyroidism Mixed hyperlipidemia Surgical History (Updated 07/07/23 @ 00:01 by TARA Spain) No pertinent past surgical history Family History (Updated 09/16/19 @ 10:36 by [place] APRN) CAD (coronary artery disease) Father Age 66 Mother Social History Smoking and tobacco/nicotine status: never used tobacco/nicotine Quit status (tobacco/nicotine): has quit using Year quit tobacco: 1996 Former quit date comment: 1 pack per day x 5 years Second hand smoke exposure: No Alcohol intake: former Substance/Drug Use: current Substance/Drug use frequency: daily Household members: spouse and children Marital status: Number of children: 4 Current occupational status: unemployed Pets and animals: Yes Pets & animals: dog(s) Pertinent Exam Findings alert, oriented x 3 and clear to auscultation bilaterally Recommendations Surgery/Procedure today Coding Level of Care Code Acute Code for Chg Fwd
[2023-10-30 08:15] VITALS: BP 139/93; PULSE 96; RESP 18; TEMP 36.3; O2SAT 96; BMI 41.8
[2023-10-30] MEDS: sodium chloride 0.9% 1,000 ML 30 ML IV (08:15)
[2023-10-30 08:24] LABS: Glucose Point of Care 136 mg/dL (70-110)
--- NOTE | 2023-10-30 08:47 | ANES.PREANE2 ---
Pre-Anesthetic Assessment Height/Weight: Height 1.83 m Weight 139.706 kg Temp Pulse Resp BP Pulse Ox O2 Del Method 97.3 F L 96 18 139/93 96 Room Air 10/30/23 08:15 10/30/23 08:15 10/30/23 08:15 10/30/23 08:15 10/30/23 08:15 10/30/23 08:15 Preop Diagnosis: need for screening colonoscopy Operation Date: 10/30/23 09:05 Proposed Procedures p Colonoscopy 95617, G0105, K62.5(Not Applicable) - Cesar Hawthorne MD Was Beta Riccardo taken within 24 hours: N/A Was Clonidine taken within 24 hours: N/A Last intake: Intake Last Liquid Date 10/29/23 Last Liquid Time 20:00 Last Solid Date 10/28/23 Social Alcohol Daily marijuana Exam alert, clear to auscultation bilaterally and regular rate & rhythm Airway Submandibular: within normal limits Cervical ROM: within normal limits Mallampati: Class II Dentition: full History/ROS No significant history except as noted and No significant complaints Pulmonary Asthma, Exertional Dyspnea and Shortness of Breath CV/HEM None reported None reported Hepatic None reported GI Gastroesophageal Reflux Disease Metabolic Diabetes Mellitus, Morbid Obesity and Thyroid Disease Musc/skel Lower Back Pain Neuropsych None reported Anesthetic Plan ASA status: 3 Anesthesia: Anesthesia Evaluation and MAC Risk of > 500 ml blood loss (7ml/kg in children): No Medications/Allergies Home Medications Medication Instructions Recorded Confirmed Last Taken Type MEDICAL MARIJUANA 1 puff as directed PRN PRN Pain 10/15/19 10/26/23 10/25/23 History blood-glucose meter (Accu-Chek #1 ea 12/07/21 07/18/23 04/01/23 Rx Ashley Plus Meter) albuterol sulfate 90 mcg/actuation 1 inh inhalation Q6H PRN shortness 08/02/22 10/26/23 10/27/23 Rx aerosol inhaler (ProAir HFA) of breath or wheezing 30 days #8.5 grams blood sugar diagnostic (BahouiTouch #100 strips 09/29/22 07/18/23 04/01/23 Rx Ultra Test strips) budesonide-formoterol HFA 160 2 puff inhalation BID 12/15/23 07/16/24 12/17/23 History mcg-4.5 mcg/actuation aerosol inhaler (Symbicort) diazepam 5 mg tablet 5 mg PO .q 8hrs PRN Back spasms 06/04/23 10/30/23 Unknown Rx #60 tabs Lumbar Corsett #1 ea 06/26/23 07/18/23 Unknown Rx hydrocodone 10 mg-acetaminophen 1 - 2 tab PO Q4H PRN Postoperative 06/26/23 10/30/23 Unknown Rx 325 mg tablet pain 7 days #40 tabs divalproex 250 mg tablet,extended 500 mg PO BID 10/26/23 10/26/23 10/28/23 History release 24 hr Allergies Allergy/AdvReac Type Severity Reaction Status Date / Time Anesthetics - Amide Type - Allergy ADR-Agitate Verified 10/30/23 08:12 Select A d [facility] Anesthesia Medical History Sprain of ankle, right Sprain of foot, right 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 Pain management contract signed Medical marijuana use Elevated WBC count Mixed hyperlipidemia Diabetes mellitus, type II Vitamin D deficiency Medication management [id number] condition Shortness of breath Bacterial lower respiratory infection Lumbar stenosis with neurogenic claudication Displacement of lumbar disc with radiculopathy Cervical disc disorder with myelopathy of mid-cervical region Hypothyroidism Mixed hyperlipidemia Surgical History (Updated 07/18/23 @ 09:[address]) No pertinent past surgical history Family History Father CAD (coronary artery disease) Age 66 Mother CAD (coronary artery disease) Social History Smoking and tobacco/nicotine status: never used tobacco/nicotine Quit status (tobacco/nicotine): has quit using Year quit tobacco: 1996 Former quit date comment: 1 pack per day x 5 years Second hand smoke exposure: No Alcohol intake: former Substance/Drug Use: current Substance/Drug use frequency: daily Household members: spouse and children Marital status: Number of children: 4 Current occupational status: unemployed Pets and animals: Yes Pets & animals: dog(s) Data Anesthesia Cardiac Studies: Echocardiogram 10/14/21
[2023-10-30 09:35] VITALS: BP 154/107; PULSE 85; RESP 20; TEMP 36.6; O2SAT 90
[2023-10-30 09:51] VITALS: BP 142/103; PULSE 80; RESP 16; O2SAT 95
--- NOTE | 2023-10-30 10:10 | ANE.PACU2 ---
Inpatient post-anesthesia follow up: Airway intact: Yes Vital signs: Temperature 97.9 F Pulse Rate 80 Respiratory Rate 16 Blood Pressure 142/103 Pulse Oximetry 95 Oxygen Delivery Me thod Room Air Oxygen Flow Rate 4 Fraction of Inspir ed Oxygen Hydration adequate: Yes Nausea and vomiting: No Pain level: 1 Mental status: Baseline
== END 2023-10-30 10:08 | disposition home or self-care (01) ==
PROVIDERS: PCP Nurse Practitioner Family; Visit Provider Surgery
PROC: 0DJD8ZZ Inspection of Lower Intestinal Tract, Via Natural or Artificial Opening Endoscopic (ICD-10-PCS; CPT 45378; principal; 2023-10-30 09:05)
DX: K62.5 Hemorrhage of anus and rectum (principal); D12.0 Benign neoplasm of cecum; D12.8 Benign neoplasm of rectum; K21.9 Gastro-esophageal reflux disease without esophagitis; E11.9 Type 2 diabetes mellitus without complications; E66.01 Morbid (severe) obesity due to excess calories; Z68.41 Body mass index [BMI] 40.0-44.9, adult; E78.2 Mixed hyperlipidemia; E03.9 Hypothyroidism, unspecified
CPT/HCPCS: 36416; 45380; 82962; 88305; J2704; J7030

== ENCOUNTER → 2024-03-19 11:04 | Outpatient (BNVA) | payer MEDICAID, SELFPAY | PROVIDERS: PCP Nurse Practitioner Family; Visit Provider Nurse Practitioner Family | DX: E78.2 Mixed hyperlipidemia (principal); E11.9 Type 2 diabetes mellitus without complications; E03.9 Hypothyroidism, unspecified; E55.9 Vitamin D deficiency, unspecified | CPT/HCPCS: 80053; 80061; 81003; 82306; 83036; 84443; 85025 ==

== ENCOUNTER → 2024-04-01 08:04 | Outpatient (BNVA) | payer MEDICAID, SELFPAY | PROVIDERS: PCP Nurse Practitioner Family; Visit Provider Orthopaedic Surgery | DX: Z98.1 Arthrodesis status (principal) | CPT/HCPCS: 72100 ==

== ENCOUNTER 2024-05-05 14:46 | Outpatient (CLI) | payer MEDICAID, SELFPAY ==
--- NOTE | 2024-05-05 15:00 | CT_ITS ---
WS: [id number] CT LUMBAR SPINE, noncontrast. HISTORY: Back Pain TECHNIQUE: Contiguous 2.0 mm axial imaging are performed. Sagittal and coronal reformats are submitte d and reviewed. [facility] one of these dose optimization techni ques: automated exposure control; mA and/or kV adjustment per patient size (includes targeted exams w here dose is matched to clinical indication); or iterative reconstruction. IV contrast: None DLP: 1672.40 mGy.cm COMPARISON: 02/12/2021 Since 2020 posterior lumbar fusion extends from L4-S1 with bilateral pedicle screws. Interbody spacer s appear appropriate at L4-5 and L5-S1. Posterior lumbar alignment is normal. Mild straightening of t he vertebral bodies. Disc spaces are maintained. No fracture. L1-2: Normal. L2-3: Mild facet arthritis. L3-4: Mild annular disc bulging encroaching upon the ventral thecal sac with ligamentum flavum and fa cet arthritis. Mild central and subarticular recess encroachment. L4-5: Large posterior laminectomy defect. No stenosis. L5-S1: Possible central disc protrusion encroaching upon the ventral thecal sac. There is artifact fr om patient's fusion. Mild bilateral foraminal narrowing. Posterior laminectomy defect. Paravertebral soft tissues are normal. CT/CT lumbar spine wo con* [id number] IMPRESSION: 1. Status post L4-S1 lumbar fusion since 2020. Interbody spacers L4-5 and L5-S 1. 2. Large laminectomy defects at L4-5 and L5-S1. 3. Possible central disc protrusion at L5-S1 encroaching upon the ventral thec al sac. Artifact is obscuring the central canal. Mild bilateral foraminal steno sis. 4. L3-4: Mild central and subarticular recess stenosis.
== END 2024-05-05 14:47 | disposition home or self-care (01) ==
LOC: RAD 14:46
PROVIDERS: PCP Nurse Practitioner Family; Visit Provider Orthopaedic Surgery
DX: M48.061 Spinal stenosis, lumbar region without neurogenic claudication (principal); M48.07 Spinal stenosis, lumbosacral region; Z98.1 Arthrodesis status; M96.89 Other intraoperative and postprocedural complications and disorders of the musculoskeletal system; M47.896 Other spondylosis, lumbar region; M51.369 Other intervertebral disc degeneration, lumbar region without mention of lumbar back pain or lower extremity pain; R93.89 Abnormal findings on diagnostic imaging of other specified body structures
CPT/HCPCS: 72131

== ENCOUNTER 2024-06-18 15:22 | Oncology outpatient (recurring) (ONCR) | payer MEDICAID, SELFPAY ==
[2024-06-18 17:29] LABS: Basophils # 0.1 10^3/uL (0.0-0.1); Basophils % 0.4 %; Eosinophils # 0.4 10^3/uL (0.0-0.8); Eosinophils % 2.5 %; Hematocrit 48.3 % (37-53); Lymphocytes # 3.3 10^3/uL (0.8-4.8); Lymphocytes % 23.2 %; Mean Corpuscular HGB Conc 33.7 g/dL (30-55); Mean Corpuscular Hemoglobin 29.5 pg (27-33); Mean Corpuscular Volume 87.3 fl (82-101); Mean Platelet Volume 9.8 fL (7.4-10.4); Monocytes # 0.9 10^3/uL (0.2-0.9); Monocytes % 6.2 %; Neutrophils # 9.44 10^3/uL (1.8-7.7); Neutrophils % 67.2 %; Nucleated Red Blood Cells % 0 %; Platelet Count 300 10^3/cmm (157-399); Red Blood Count 5.53 10^6/uL (3.85-5.65); Red Cell Distribution Width 12.9 % (12.1-15.1); White Blood Count 14.05 10^3/uL (3.29-11.43)
[2024-06-18 17:34] LABS: Erythrocyte Sedimentation Rate 16 mm/hr (0-10)
[2024-06-18 17:53] LABS: Alanine Aminotransferase 38 U/L (0-41); Albumin Level 4.3 g/dL (3.5-5.2); Alkaline Phosphatase 77 U/L (40-130); Aspartate Amino Transferase 23 U/L (0-40); Blood Urea Nitrogen 11 mg/dL (6-20); C Reactive Protein 5.6 mg/L (0.0-4.9); Carbon Dioxide 24 mmol/L (22-29); Chloride 106 mmol/L (98-107); Globulin 3.1 g/dL (1.3-4.6); Glomerular Filtration Rate 118.9 mL/min (90-130); Glucose 144 mg/dL (65-115); Lactate Dehydrogenase 159 U/L (135-225); Osmolality Calculated 296 mOsm/kg (285-295); Sodium 142 mmol/L (136-145); Total Bilirubin 0.3 mg/dL (0.15-1.2); Total Protein 7.4 g/dL (6.6-8.7); Uric Acid 7.9 mg/dL (3.4-7.0)
== END 2024-07-14 23:59 | disposition home or self-care (01) ==
PROVIDERS: PCP Nurse Practitioner Family; Visit Provider Internal Medicine
DX: Z53.9 Procedure and treatment not carried out, unspecified reason (principal); E03.9 Hypothyroidism, unspecified; D72.829 Elevated white blood cell count, unspecified
CPT/HCPCS: 36415; 80053; 83615; 84100; 84550; 85025; 85651; 86140; 88184; 88185

== ENCOUNTER 2024-07-21 09:29 | Outpatient (CLI) | payer MEDICAID, SELFPAY ==
--- NOTE | 2024-07-21 09:32 | US_ITS ---
WS: [id number] ULTRASOUND ABDOMEN CLINICAL INFORMATION: elevated WBC COMPARISON: None. FINDINGS: Liver Size: Enlarged Craniocaudal length: 19.5 cm. Echogenicity: Coarse Surface nodularity: None. Mass (size and location): None. Bile ducts Intrahepatic ducts: Normal. Common bile duct diameter: 0.4 cm. Gallbladder Cholelithiasis. Gallstones: Present Gallbladder sludge: None. Gallbladder wall thickening: None. Pericholecystic fluid: None. Sonographic Connors sign: Absent. Pancreas Not visualized. Spleen Splenomegaly: None. Craniocaudal length: 12.0 cm. Right kidney: Poorly visualized Size: 10.9 cm x 5.0 cm x 4.6 cm Left kidney: Normal. Hydronephrosis: None. Size: 10.8 cm x 4.6 cm x 5.2 cm. Abdominal aorta and IVC Visualized portions are normal. Ascites: None. US/US abdomen complete* [id number] IMPRESSION: Limited study due to body habitus and bowel gas 1. Hepatomegaly with fatty infiltration 2. Cholelithiasis. 3. Normal common bile duct. 4. RIGHT kidney poorly visualized. 5. No hydronephrosis LEFT kidney. 6. Pancreas is not visualized
== END 2024-07-21 09:30 | disposition home or self-care (01) ==
PROVIDERS: PCP Nurse Practitioner Family; Visit Provider Internal Medicine
DX: D72.828 Other elevated white blood cell count (principal); R06.83 Snoring; J45.909 Unspecified asthma, uncomplicated; E66.9 Obesity, unspecified; R16.0 Hepatomegaly, not elsewhere classified; K76.0 Fatty (change of) liver, not elsewhere classified; K80.20 Calculus of gallbladder without cholecystitis without obstruction
CPT/HCPCS: 76700